=== PATIENT | male | born 1990 | race Caucasian/White ===

== ENCOUNTER → 2018-10-17 13:28 | Outpatient (POV) | payer BC, SELFPAY ==
[2018-10-17 13:53] VITALS: BP 152/88; PULSE 74; RESP 18; O2SAT 98; BMI 38.4
--- NOTE | 2018-10-17 14:22 | HMH.PAINSOAP ---
[facility] Pain Management SOAP Note Subjective:: Patient is a pleasant 26-year-old white male who presents today for complaints of bilateral lower extremity pain. The patient was seen here in 2017 for lower extremity pain and was started on gabapentin. The patient has since continued gabapentin as prescribed by Dr. Hayden. He does not feel like the gabapentin is working for him at this time. He is also tried Cymbalta in the past and this has not worked for him. Patient says that he has a history of lupus and antiphospholipid syndrome. As a result, he is on chronic anticoagulation therapy. Patient says that his pain is secondary to frequent blood clots in his lower extremities. Patient was ordered an MRI in the past by Dr. Hernandez, but he did not have the imaging study at that time. He does say that he has had imaging that was ordered from a another physician, for which that physician said it was directly related to his previous blood clots . Patient does rate his pain an 8 out of 10 today. Review of Systems General: No recent weight changes, no fever, no sleep disturbances Respiratory: No cough, no shortness of air, no recurring pulmonary infections Cardiovascular/peripheral vascular: No chest pain, no palpitations, no edema, no shortness of breath Gastrointestinal: No new onset incontinence, normal bowel movements reported Genitourinary: No new onset incontinence Musculoskeletal: Bilateral lower extremity pain Psychiatric: Normal mood/affect Neurological: [Denies weakness in extremities], [denies balance issues] Objective:: Physical exam General: Alert and oriented x3, no acute distress, pleasant and cooperative, [on room air] Lungs: Respirations even and unlabored, symmetrical chest expansion Eyes: PERRL Musculoskeletal: Range of motion to bilateral lower extremities somewhat guarded secondary to pain, deep tendon reflexes normal, strength in upper and lower extremities [5/5], [abnormal gait noted] Neurological: Speech clear, identification and records commander equal, no gross sensory deficit Assessment:: Bilateral lower extremity pain Plan:: Due to limited options secondary to anticoagulation therapy, we did have a thorough discussion on plan of care. The patient says that gabapentin is not working for him. We did discuss changing gabapentin to Lyrica, but it is cost prohibitive at this time. The patient would like to try naproxen for now and then follow-up with us in a month to discuss possibly changing his gabapentin. He has been instructed to call the office if he has any concerns prior to his next appointment. Dr. Hernandez has reviewed this note and agrees with this plan of care. This note was dictated using voice recognition software and make contain errors or omissions.
== END ==
PROVIDERS: PCP Family Medicine; Visit Provider Clinical Nurse Specialist Family Health
DX: M79.605 Pain in left leg (principal); M79.604 Pain in right leg
CPT/HCPCS: 99212

== ENCOUNTER → 2018-11-14 13:44 | Outpatient (POV) | payer BC, SELFPAY ==
[2018-11-14 14:03] VITALS: BP 127/89; PULSE 91; RESP 18; O2SAT 98; BMI 39.9
--- NOTE | 2018-11-14 16:01 | HMH.PAINSOAP ---
[facility] Pain Management SOAP Note Subjective:: Patient is a pleasant 28-year-old white male who presents today for complaints of bilateral lower extremity pain. 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 He is tried Cymbalta along with gabapentin and Lyrica with no success. He is currently on chronic anticoagulation therapy which he cannot stop. Patient rates his pain today 4 out of 10. We discussed options and we discussed potentially utilizing a compounding cream. He is interested in moving forward with this. [facility] #[id number] reviewed and appropriate. ROS General: no recent weight change, no fever, no sleep disturbances Respiratory: no cough, no shortness of air, no recurring pulmonary infections Cardiovascular/Peripheral Vascular: No chest pain, No palpitations, no edema, no shortness of breath. Gastrointestinal: no incontinence, normal bowel movements reported Genitourinary: no incontinence Musculoskeletal: Bilateral lower extremity pain Psychiatric: normal mood/ affect Neurological: [denies weakness in extremities], [denies balance issues] Objective:: Physical Exam General: Alert and oriented x3, no acute distress, pleasant and cooperative, [on room air] Lungs: Resps E/U, Symmetrical chest expansion, Eyes: PERRL Musculoskeletal: deep tendon reflexes normal, strength in upper and lower extremities [5/5], [abnormal gait noted] Neurological: speech clear, campaign manager equal, no gross sensory deficits Assessment:: CRPS type II, bilateral lower extremity pain Plan:: We will try compounding cream we will try this for 1 month we will reassess his symptoms and see if this is beneficial for him. He is been instructed to call the office if he has any issues prior to his next appointment. Dr. Hernandez has reviewed this note and agrees with this plan of care. This note was dictated using voice recognition software and may contain errors or omissions Pain Management Hx Components *Have you ever received a pneumonia vaccine?: No *Have you received a flu vaccine this season?: No - *Social History *Occupational Status:: other *Travel in the last 8 weeks: None
== END ==
PROVIDERS: PCP Family Medicine; Visit Provider Clinical Nurse Specialist Family Health
DX: G57.73 Causalgia of bilateral lower limbs (principal)
CPT/HCPCS: 99212

== ENCOUNTER → 2018-12-19 14:14 | Outpatient (POV) | payer BC, SELFPAY ==
[2018-12-19 14:44] VITALS: BP 139/75; PULSE 79; RESP 18; O2SAT 98; BMI 38.4
--- NOTE | 2018-12-20 10:23 | HMH.PAINSOAP ---
[facility] Pain Management SOAP Note Subjective:: Patient is a pleasant 28-year-old white male who presents today for follow-up. Patient has complaints of bilateral lower extremity pain. 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 He is tried Cymbalta, gabapentin and Lyrica with no success. He is currently on chronic anticoagulation therapy and he cannot stop this. Patient rates his pain today 5 out of 10. Patient recently tried a ketamine and gabapentin compounding cream he did not have any benefit from this. We discussed adding Elavil at nighttime we will move forward with this. ROS General: no recent weight change, no fever, no sleep disturbances Respiratory: no cough, no shortness of air, no recurring pulmonary infections Cardiovascular/Peripheral Vascular: No chest pain, No palpitations, no edema, no shortness of breath. Gastrointestinal: no incontinence, normal bowel movements reported Genitourinary: no incontinence Musculoskeletal: Bilateral leg pain Psychiatric: normal mood/ affect, Neurological: [denies weakness in extremities], [denies balance issues] Objective:: Physical Exam General: Alert and oriented x3, no acute distress, pleasant and cooperative, [on room air] Lungs: Resps E/U, Symmetrical chest expansion, Eyes: PERRL Musculoskeletal: deep tendon reflexes normal, strength in upper and lower extremities [5/5], [abnormal gait noted] Neurological: speech clear, fleecer equal, no gross sensory deficits Assessment:: CRPS type II bilateral lower extremities Plan:: We will start Elavil 25 mg at nighttime to see if this is beneficial for the patient. He is to continue his tramadol and gabapentin. Patient's been instructed to call our office if he has any issues we will see him back in 2 weeks reassess his symptoms at that time. Dr. Hernandez has reviewed this note and agrees with this plan of care. This note was dictated using voice recognition software and may contain errors or omissions [facility] History I have reviewed the patient's past medical history: Yes *Have you ever received a pneumonia vaccine?: Yes *Have you received a flu vaccine this season?: Yes - *Social History *Occupational Status:: other *Travel in the last 8 weeks: None Family Hx:: Non-contributory
--- NOTE | 2018-12-20 10:26 | P.CONS_ITS ---
[facility] Pain Management SOAP Note Subjective:: Patient is a pleasant 28-year-old white male who presents today for follow-up. Patient has complaints of bilateral lower extremity pain. 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 He is tried Cymbalta, gabapentin and Lyrica with no success. He is currently on chronic anticoagulation therapy and he cannot stop this. Patient rates his pain today 5 out of 10. Patient recently tried a ketamine and gabapentin compounding cream he did not have any benefit from this. We discussed adding Elavil at nighttime we will move forward with this. ROS General: no recent weight change, no fever, no sleep disturbances Respiratory: no cough, no shortness of air, no recurring pulmonary infections Cardiovascular/Peripheral Vascular: No chest pain, No palpitations, no edema, no shortness of breath. Gastrointestinal: no incontinence, normal bowel movements reported Genitourinary: no incontinence Musculoskeletal: Bilateral leg pain Psychiatric: normal mood/ affect, Neurological: [denies weakness in extremities], [denies balance issues] Objective:: Physical Exam General: Alert and oriented x3, no acute distress, pleasant and cooperative, [on room air] Lungs: Resps E/U, Symmetrical chest expansion, Eyes: PERRL Musculoskeletal: deep tendon reflexes normal, strength in upper and lower extremities [5/5], [abnormal gait noted] Neurological: speech clear, field cane scale clerk equal, no gross sensory deficits Assessment:: CRPS type II bilateral lower extremities Plan:: We will start Elavil 25 mg at nighttime to see if this is beneficial for the patient. He is to continue his tramadol and gabapentin. Patient's been instructed to call our office if he has any issues we will see him back in 2 weeks reassess his symptoms at that time. Dr. Hernandez has reviewed this note and agrees with this plan of care. This note was dictated using voice recognition software and may contain errors or omissions [facility] History I have reviewed the patient's past medical history: Yes *Have you ever received a pneumonia vaccine?: Yes *Have you received a flu vaccine this season?: Yes - *Social History *Occupational Status:: other *Travel in the last 8 weeks: None Family Hx:: Non-contributory
== END ==
PROVIDERS: PCP Family Medicine; Visit Provider Clinical Nurse Specialist Family Health
DX: G57.70 Causalgia of unspecified lower limb (principal)
CPT/HCPCS: 99212

== ENCOUNTER → 2019-01-09 14:43 | Outpatient (POV) | payer BC, SELFPAY ==
[2019-01-09 15:29] VITALS: BP 126/82; PULSE 84; RESP 18; O2SAT 99; BMI 38.4
--- NOTE | 2019-01-10 08:15 | HMH.PAINSOAP ---
[facility] Pain Management SOAP Note Subjective:: Is a very pleasant 28-year-old white male who presents today for follow-up. 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 He is tried Cymbalta/gabapentin/Lyrica with no success. At his last visit we put him on Elavil 25 mg nightly. Patient states he has not noticed a huge difference in his pain however he is sleeping better and he does not have any side effects we discussed increasing his Elavil at this time. He rates his pain today an 8 out of 10 he states he has had a hard day at work. Patient is also on tramadol and gabapentin [facility] #[id number] ROS General: no recent weight change, no fever, no sleep disturbances Respiratory: no cough, no shortness of air, no recurring pulmonary infections Cardiovascular/Peripheral Vascular: No chest pain, No palpitations, no edema, no shortness of breath. Gastrointestinal: no incontinence, normal bowel movements reported Genitourinary: no incontinence Musculoskeletal: Bilateral leg pain Psychiatric: normal mood/ affect, [denies depression], [denies anxiety] Neurological: [denies weakness in extremities], [denies balance issues] Objective:: Physical Exam General: Alert and oriented x3, no acute distress, pleasant and cooperative, [on room air] Lungs: Resps E/U, Symmetrical chest expansion, Eyes: PERRL Musculoskeletal: Range of motion bilateral legs somewhat guarded secondary to pain, deep tendon reflexes normal, strength in upper and lower extremities [5/5], [abnormal gait noted] Neurological: speech clear, fisher line equal, no gross sensory deficits Assessment:: CRPS type II bilateral lower extremities Plan:: We will increase his Elavil to 50 mg at nighttime to see if this is beneficial I will see him back in 2 weeks unless he is doing extremely well he can call and make an appointment for 1 month. She is been instructed to call the office if he has any issues prior to his next appointment. Patient is not an interventional candidate due to the fact that he is on anticoagulation therapy and cannot come off of it. Dr. Hernandez has reviewed this note and agrees with this plan of care. This note was dictated using voice recognition software and may contain errors or omissions [facility] History I have reviewed the patient's past medical history: Yes *Have you ever received a pneumonia vaccine?: No *Have you received a flu vaccine this season?: No - *Social History *Occupational Status:: other *Travel in the last 8 weeks: None Family Hx:: Non-contributory
--- NOTE | 2019-01-10 08:19 | P.CONS_ITS ---
[facility] Pain Management SOAP Note Subjective:: Is a very pleasant 28-year-old white male who presents today for follow-up. 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 He is tried Cymbalta/gabapentin/Lyrica with no success. At his last visit we put him on Elavil 25 mg nightly. Patient states he has not noticed a huge difference in his pain however he is sleeping better and he does not have any side effects we discussed increasing his Elavil at this time. He rates his pain today an 8 out of 10 he states he has had a hard day at work. Patient is also on tramadol and gabapentin [facility] #[id number] ROS General: no recent weight change, no fever, no sleep disturbances Respiratory: no cough, no shortness of air, no recurring pulmonary infections Cardiovascular/Peripheral Vascular: No chest pain, No palpitations, no edema, no shortness of breath. Gastrointestinal: no incontinence, normal bowel movements reported Genitourinary: no incontinence Musculoskeletal: Bilateral leg pain Psychiatric: normal mood/ affect, [denies depression], [denies anxiety] Neurological: [denies weakness in extremities], [denies balance issues] Objective:: Physical Exam General: Alert and oriented x3, no acute distress, pleasant and cooperative, [on room air] Lungs: Resps E/U, Symmetrical chest expansion, Eyes: PERRL Musculoskeletal: Range of motion bilateral legs somewhat guarded secondary to pain, deep tendon reflexes normal, strength in upper and lower extremities [5/5], [abnormal gait noted] Neurological: speech clear, nurse general duty equal, no gross sensory deficits Assessment:: CRPS type II bilateral lower extremities Plan:: We will increase his Elavil to 50 mg at nighttime to see if this is beneficial I will see him back in 2 weeks unless he is doing extremely well he can call and make an appointment for 1 month. She is been instructed to call the office if he has any issues prior to his next appointment. Patient is not an interventional candidate due to the fact that he is on anticoagulation therapy and cannot come off of it. Dr. Hernandez has reviewed this note and agrees with this plan of care. This note was dictated using voice recognition software and may contain errors or omissions [facility] History I have reviewed the patient's past medical history: Yes *Have you ever received a pneumonia vaccine?: No *Have you received a flu vaccine this season?: No - *Social History *Occupational Status:: other *Travel in the last 8 weeks: None Family Hx:: Non-contributory
== END ==
PROVIDERS: PCP Family Medicine; Visit Provider Clinical Nurse Specialist Family Health
DX: G57.70 Causalgia of unspecified lower limb (principal)
CPT/HCPCS: 99212

== ENCOUNTER → 2021-08-12 15:36 | Outpatient (CLI) | payer OTHER, SELFPAY | PROVIDERS: Visit Provider Podiatrist | DX: B35.3 Tinea pedis (principal); M25.571 Pain in right ankle and joints of right foot; M25.572 Pain in left ankle and joints of left foot; A04.8 Other specified bacterial intestinal infections | CPT/HCPCS: 87070; 87186; 87205 ==

== ENCOUNTER → 2021-08-19 13:12 | Outpatient (CLI) | payer OTHER, SELFPAY ==
--- NOTE | 2021-08-19 13:21 | XR_ITS ---
FINAL REPORT CLINICAL HISTORY: pain FINDINGS: RIGHT FOOT 3 weight-bearing views were obtained. There is no acute fracture or dislocation. The joint spaces are intact. There is no soft tissue abnormality. IMPRESSION: No acute bony abnormality. Reviewed, Interpreted and Dictated by Elidia Cool MD Transcribed by Kellie Miller Authenticated by Elidia Cool MD on 08/19/2021 02:53:31 PM [facility]
--- NOTE | 2021-08-19 13:21 | XR_ITS ---
FINAL REPORT CLINICAL HISTORY: pain FINDINGS: LEFT FOOT 3 weight-bearing views were obtained. There is no acute fracture or dislocation. The joint spaces are intact. There is no soft tissue abnormality. IMPRESSION: No acute bony abnormality. Reviewed, Interpreted and Dictated by Elidia Cool MD Transcribed by Kellie Miller Authenticated by Elidia Cool MD on 08/19/2021 02:51:48 PM [facility]
--- NOTE | 2021-08-19 13:21 | XR_ITS ---
FINAL REPORT CLINICAL HISTORY: ankle pain FINDINGS: Weight-bearing AP, oblique, and lateral views of the right ankle were obtained. There is no prior exam for comparison. There is no fracture or dislocation. The ankle mortise is intact. Soft tissues are normal. IMPRESSION: No acute osseous abnormality of the right ankle. Reviewed, Interpreted and Dictated by Elidia Cool MD Transcribed by Kellie Miller Authenticated by Elidia Cool MD on 08/19/2021 02:52:[address] [facility]
--- NOTE | 2021-08-19 13:21 | XR_ITS ---
FINAL REPORT CLINICAL HISTORY: ankle pain FINDINGS: Weight-bearing AP, oblique, and lateral views of the left ankle were obtained. There is no prior exam for comparison. There is no fracture or dislocation. The ankle mortise is intact. Soft tissues are normal. IMPRESSION: No acute osseous abnormality of the left ankle. Reviewed, Interpreted and Dictated by Elidia Cool MD Transcribed by Kellie Miller Authenticated by Elidia Cool MD on 08/19/2021 02:51:[address] [facility]
== END ==
PROVIDERS: PCP Nurse Practitioner Family; Visit Provider Podiatrist
DX: M25.571 Pain in right ankle and joints of right foot (principal); M25.572 Pain in left ankle and joints of left foot; B35.3 Tinea pedis
CPT/HCPCS: 73610; 73630

== ENCOUNTER → 2021-09-03 08:48 | Outpatient (CLI) | payer OTHER, SELFPAY ==
[2021-09-03 10:23] LABS: INR 4.66 (0.9-1.1)
== END ==
PROVIDERS: PCP Nurse Practitioner Family; Visit Provider Nurse Practitioner Family
DX: R79.1 Abnormal coagulation profile (principal)
CPT/HCPCS: 36415; 85610

== ENCOUNTER → 2021-09-18 12:52 | Outpatient (CLI) | payer OTHER, SELFPAY ==
[2021-09-18 13:43] LABS: Basophils % 0.5 % (0.1-2.0); Eosinophils % 0.3 % (0.1-12.0); Hematocrit 45.7 % (42.0-52.0); Hemoglobin 16.2 g/dL (14.1-18.0); Lymphocytes # 1.4 K/mm3 (0.7-4.5); Lymphocytes % 16.4 % (10-50); Mean Corpuscular HGB Conc 35.4 g/dL (31.8-35.4); Mean Corpuscular Hemoglobin 30.8 pg (27.0-31.2); Mean Platelet Volume 7.7 fl (7.4-10.4); Monocytes # 0.6 K/mm3 (0.1-1.0); Monocytes % 7.1 % (1.7-9.3); Neutrophils # 6.3 K/mm3 (1.8-7.8); Neutrophils % 75.7 % (37.0-80.0); Platelet Count 177 K/mm3 (142-424); Red Blood Count 5.25 M/mm3 (4.60-6.20); White Blood Count 8.3 K/mm3 (4.8-10.8)
[2021-09-18 14:29] LABS: INR 5.67 (0.9-1.1)
[2021-09-18 14:30] LABS: Prothrombin Time 56.3 seconds (10.1-12.5)
[2021-09-18 14:53] LABS: Ferritin 107 ng/ml (17.9-464)
[2021-09-18 15:24] LABS: Vitamin B12 449 pg/mL (239-931)
[2021-09-18 20:51] LABS: Iron 107 ug/dL (49-181)
[2021-09-18 21:01] LABS: Total Iron Binding Capacity 327 ug/dL (261-462)
== END ==
PROVIDERS: PCP Nurse Practitioner Family; Visit Provider Nurse Practitioner Family
DX: D64.9 Anemia, unspecified (principal); R31.9 Hematuria, unspecified; Z51.81 Encounter for therapeutic drug level monitoring; Z79.01 Long term (current) use of anticoagulants
CPT/HCPCS: 36415; 82607; 82728; 82746; 83540; 83550; 85025; 85610

== ENCOUNTER → 2021-09-24 13:46 | Outpatient (CLI) | payer OTHER, SELFPAY ==
[2021-09-24 14:33] LABS: INR 2.05 (0.9-1.1)
== END ==
PROVIDERS: PCP Nurse Practitioner Family; Visit Provider Nurse Practitioner Family
DX: D68.62 Lupus anticoagulant syndrome (principal); Z51.81 Encounter for therapeutic drug level monitoring; Z79.01 Long term (current) use of anticoagulants
CPT/HCPCS: 36415; 85610

== ENCOUNTER → 2021-09-26 11:40 | Outpatient (CLI) | payer OTHER, SELFPAY ==
[2021-09-26 13:09] LABS: INR 2.42 (0.9-1.1); Prothrombin Time 25.6 seconds (10.1-12.5)
== END ==
PROVIDERS: PCP Nurse Practitioner Family; Visit Provider Nurse Practitioner Family
DX: D68.62 Lupus anticoagulant syndrome (principal); Z51.81 Encounter for therapeutic drug level monitoring; Z79.01 Long term (current) use of anticoagulants
CPT/HCPCS: 36415; 85610

== ENCOUNTER → 2021-09-30 14:52 | Outpatient (CLI) | payer OTHER, SELFPAY ==
[2021-09-30 16:36] LABS: INR 2.71 (0.9-1.1); Prothrombin Time 28.4 seconds (10.1-12.5)
== END ==
PROVIDERS: PCP Nurse Practitioner Family; Visit Provider Nurse Practitioner Family
DX: D68.62 Lupus anticoagulant syndrome (principal); Z51.81 Encounter for therapeutic drug level monitoring; Z79.01 Long term (current) use of anticoagulants
CPT/HCPCS: 36415; 85610

== ENCOUNTER → 2021-10-27 10:42 | Outpatient (CLI) | payer OTHER, SELFPAY ==
[2021-10-27 11:41] LABS: INR 1.82 (0.9-1.1); Prothrombin Time 19.7 seconds (10.1-12.5)
== END ==
PROVIDERS: PCP Nurse Practitioner Family; Visit Provider Nurse Practitioner Family
DX: D68.62 Lupus anticoagulant syndrome (principal); Z51.81 Encounter for therapeutic drug level monitoring; Z79.01 Long term (current) use of anticoagulants
CPT/HCPCS: 36415; 85610

== ENCOUNTER → 2021-12-11 12:21 | Outpatient (CLI) | payer OTHER, SELFPAY ==
[2021-12-11 12:55] LABS: INR 4.37 (0.9-1.1); Prothrombin Time 43.4 seconds (10.1-12.5)
== END ==
PROVIDERS: PCP Nurse Practitioner Family; Visit Provider Nurse Practitioner Family
DX: D68.62 Lupus anticoagulant syndrome (principal); Z79.01 Long term (current) use of anticoagulants
CPT/HCPCS: 36415; 85610

== ENCOUNTER 2021-12-31 18:54 | Emergency (ER) | payer OTHER, SELFPAY ==
--- NOTE | 2021-12-31 19:22 | XR_ITS ---
PROCEDURE INFORMATION: Exam: XR Right Foot Exam date and time: 12/31/2021 7:20 PM Age: 31 years old Clinical indication: Injury or trauma; Work related; Foot; Right; Foreign body involvement not specified; Patient HX: Patient stepped on a nail embedded in a board. Ink pen used on lateral view to adin puncture site. ; Additional info: Stepped on nail TECHNIQUE: Imaging protocol: Radiologic exam of the Right foot. Views: 3 or more views. COMPARISON: CR XR FOOT WT BEARING RT 3V 08/19/2021 1:38 PM FINDINGS: Bones/joints: No fractures. Normal alignment is maintained in the midfoot, hindfoot, and forefoot. Joint spaces are well-maintained. No blastic or lytic lesions. No gross ankle joint effusion. No hindfoot coalition. Soft tissues: No periostitis or osteolysis. No gross soft tissue abnormalities. No radiopaque foreign bodies. Other findings: Normal mineralization. IMPRESSION: 1. No acute findings. 2. No fracture or foreign body.
[2021-12-31 19:26] VITALS: BP 131/86; PULSE 81; RESP 18; TEMP 36.8; O2SAT 98; BMI 36.4
--- NOTE | 2021-12-31 20:07 | EXP.UTC ---
Discharge Plan Disposition Patient Disposition: Home, Self-Care Condition: Good Prescriptions Prescriptions: New amoxicillin-pot clavulanate 875-125 mg Tablet 1 tab PO Q12H 7 Days Qty: 10 0RF No Action leflunomide 10 mg tablet 10 mg PO DAILY hydrocodone-acetaminophen 10-325 mg tablet 1 tab PO NEEDED PRN (Reason: Pain) Label Comments: TAKE ONE TABLET BY MOUTH TWICE DAILY NEEDED FOR PAIN MAY CAUSE DROWSINESS ergocalciferol (vitamin D2) 1,250 mcg (50,000 unit) capsule 1,250 mcg PO DAILY gabapentin 300 mg capsule 300 mg PO NEEDED PRN (Reason: Pain) methocarbamol 750 mg tablet 750 mg PO DAILY Label Comments: TAKE ONE TABLET BY MOUTH EVERY DAY MAY CAUSE DROWSINESS warfarin 5 MG tablet 5 mg PO DAILY Label Comments: TAKE 3 TABLETS BY MOUTH EVERY DAY DIRECTED hydroxychloroquine 200 MG tablet 200 mg PO DAILY leflunomide 10 mg tablet 10 mg PO DAILY Label Comments: TAKE ONE TABLET BY MOUTH EVERY DAY DIRECTED hydrocodone-acetaminophen 10-325 mg tablet 1 tab PO NEEDED PRN (Reason: Pain) Label Comments: TAKE ONE TABLET BY MOUTH TWICE DAILY NEEDED FOR PAIN MAY CAUSE DROWSINESS gabapentin 300 mg capsule 300 mg PO TID Label Comments: TAKE ONE CAPSULE BY MOUTH THREE TIMES DAILY MAY CAUSE DROWSINESS ergocalciferol (vitamin D2) 1,250 mcg (50,000 unit) capsule 50,000 unit PO WEEKLY Label Comments: TAKE ONE CAPSULE BY MOUTH EVERY WEEK hydroxychloroquine 200 mg tablet 200 mg PO DAILY Label Comments: TAKE TWO TABLETS BY MOUTH EVERY DAY guaifenesin [Mucus Relief ER] 600 mg tablet extended release 12hr 600 mg PO NEEDED PRN (Reason: Allergy Symptoms) Label Comments: TAKE ONE TABLET BY MOUTH EVERY TWELVE HOURS NEEDED Referrals Follow up/Referrals: Amrit Cordon APRN [Primary Care Provider] - See instructions Activity Restrictions/Add. Instructions Additional Instructions/Restrictions: Monitor PT/INR closely as antibiotics can enhance the anticoagulation effects of Warfarin and needs to be monitored closely while on antibiotics Return if needed Follow up with your Family Doctor if no improvement or any worsen of symptoms Straight to ER if any life threatening sympotms Make sure to keep wound clean and dry Clinical Impressions Clinical Impression: Puncture wound Instructions Patient Instructions: DI for Puncture Wound, Amoxicillin and Clavulanic Acid Discharge ED Provider: Katheryn Santacruz [facility] H[place] General Stated complaint: AO 12/31 @1400@HOME STEPPED ON NAIL Mode of Arrival: Ambulatory Source of Information: Patient and Spouse Limitations: No Limitations Time Seen by Provider: 12/31/21 20:08 Description of Symptoms (Recalled from Triage Doc. by RN): pt comes in for stepping on a nail this evening. pt is on blood thinners and would like xray to check punture wound HEENT Symptoms (Recalled from RN notes): No Resp Symptoms (Recalled from RN notes): No Skin Symptoms (Recalled from RN notes): Yes MS Symptoms (Recalled from RN notes): No Functional Status (Recalled from RN notes): n/a History of Present Illness Provider Complaint: Patient states that he was walking and stepped on nail that was in a board States the nail went through his shoe and into the bottom of his right foot States that he was worried that something may be inside his foot and he is on blood thinners so they wanted to get it checked Related Data Home Medications Medication Instructions Recorded Confirmed hydroxychloroquine 200 mg tablet 200 mg PO DAILY Supplement 10/17/18 12/31/21 warfarin 5 mg tablet 5 mg PO DAILY Blood thinner 10/17/18 12/31/21 ergocalciferol (vitamin D2) 1,250 1,250 mcg PO DAILY Supplement 03/10/21 12/31/21 mcg (50,000 unit) capsule gabapentin 300 mg capsule 300 mg PO NEEDED PRN Pain 03/10/21 12/31/21 hydrocodone 10 mg-acetaminophen 1 tab PO NEEDED PRN Pain
[2021-12-31 20:10] VITALS: BP 131/86; PULSE 81; RESP 18; TEMP 36.8
== END 2021-12-31 20:22 | disposition home or self-care (01) ==
PROVIDERS: Emergency Provider Nurse Practitioner; PCP Nurse Practitioner Family
DX: S91.331A Puncture wound without foreign body, right foot, initial encounter (principal); W45.0XXA Nail entering through skin, initial encounter; Y93.01 Activity, walking, marching and hiking; Z79.01 Long term (current) use of anticoagulants; Z79.899 Other long term (current) drug therapy
CPT/HCPCS: 73630; 90471; 90714; 99213; G0463

== ENCOUNTER → 2022-01-02 12:02 | Outpatient (CLI) | payer OTHER, SELFPAY ==
[2022-01-02 12:40] LABS: Basophils # 0.1 K/mm3 (0-0.2); Basophils % 0.7 % (0.1-2.0); Eosinophils # 0.1 K/mm3 (0.0-0.4); Eosinophils % 1.4 % (0.1-12.0); Hemoglobin 15.7 g/dL (14.1-18.0); Lymphocytes # 1.2 K/mm3 (0.7-4.5); Lymphocytes % 17.2 % (10-50); Mean Corpuscular Hemoglobin 29.8 pg (27.0-31.2); Mean Corpuscular Volume 93.1 fl (80-94); Mean Platelet Volume 7.3 fl (7.4-10.4); Monocytes # 0.5 K/mm3 (0.1-1.0); Monocytes % 7.7 % (1.7-9.3); Neutrophils # 5.1 K/mm3 (1.8-7.8); Neutrophils % 72.9 % (37.0-80.0); Platelet Count 227 K/mm3 (142-424); Red Blood Count 5.26 M/mm3 (4.60-6.20); Red Cell Distribution Width 13.5 % (11.5-17.5)
[2022-01-02 12:48] LABS: INR 1.91 (0.9-1.1); Prothrombin Time 19.9 seconds (10.1-12.5)
[2022-01-02 12:54] LABS: Chloride 104 mmol/L (98-107); Potassium 4.1 mmoL/L (3.5-5.1); Sodium 140 mmol/L (136-145)
[2022-01-02 12:57] LABS: Alanine Aminotransferase 34 U/L (12-78); Albumin Level 4.4 g/dl (3.5-5.0); Albumin/Globulin Ratio 1.7 (1.1-1.8); Alkaline Phosphatase 73 U/L (38-126); Anion Gap 14.1 mEq/L (5-15); Aspartate Amino Transferase 34 U/L (17-59); Bilirubin,Total 0.8 mg/dl (0.2-1.3); Blood Urea Nitrogen 10 mg/dl (9-20); Calcium 8.9 mg/dl (8.4-10.2); Carbon Dioxide 26 mmol/L (22.0-30.0); Estimated Glomerular Filt Rate 113 ml/min (>60); GFR (African American) 136 ML/MIN (>60); Globulin 2.6 g/dL (1.3-3.2); Glucose 91 mg/dl (74-100)
[2022-01-02 13:03] LABS: C-Reactive Protein 4.2 mg/L (0-4)
[2022-01-02 14:55] LABS: Erythrocyte Sedimentation Rate 26 mm/hr (0-15)
== END ==
PROVIDERS: PCP Nurse Practitioner Family; Visit Provider Podiatrist
DX: S91.331A Puncture wound without foreign body, right foot, initial encounter (principal); M79.671 Pain in right foot; L03.115 Cellulitis of right lower limb; T14.8XXA Other injury of unspecified body region, initial encounter
CPT/HCPCS: 36415; 80053; 85025; 85610; 85651; 86140

== ENCOUNTER → 2022-01-28 12:18 | Outpatient (CLI) | payer OTHER, SELFPAY ==
[2022-01-28 13:32] LABS: INR 3.39 (0.9-1.1); Prothrombin Time 34.2 seconds (10.1-12.5)
== END ==
PROVIDERS: PCP Nurse Practitioner Family; Visit Provider Nurse Practitioner Family
DX: D68.62 Lupus anticoagulant syndrome (principal); Z51.81 Encounter for therapeutic drug level monitoring; Z79.01 Long term (current) use of anticoagulants
CPT/HCPCS: 36415; 85610

== ENCOUNTER → 2022-02-02 11:48 | Outpatient (CLI) | payer OTHER, SELFPAY ==
[2022-02-02 12:31] LABS: INR 2.25 (0.9-1.1); Prothrombin Time 23.2 seconds (10.1-12.5)
== END ==
PROVIDERS: PCP Nurse Practitioner Family; Visit Provider Nurse Practitioner Family
DX: D68.62 Lupus anticoagulant syndrome (principal); Z51.81 Encounter for therapeutic drug level monitoring; Z79.01 Long term (current) use of anticoagulants
CPT/HCPCS: 36415; 85610

== ENCOUNTER → 2022-08-10 12:18 | Outpatient (CLI) | payer OTHER, SELFPAY ==
[2022-08-10 13:52] LABS: INR 4.81 (0.9-1.1)
[2022-08-10 14:09] LABS: Prothrombin Time 47.5 seconds (10.1-12.5)
== END ==
PROVIDERS: PCP Nurse Practitioner Family; Visit Provider Nurse Practitioner Family
DX: Z51.81 Encounter for therapeutic drug level monitoring (principal); Z79.01 Long term (current) use of anticoagulants; D68.62 Lupus anticoagulant syndrome
CPT/HCPCS: 36415; 85610

== ENCOUNTER → 2022-09-10 12:15 | Outpatient (CLI) | payer OTHER, SELFPAY ==
[2022-09-10 12:33] LABS: Basophils % 0.8 % (0.1-2.0); Eosinophils # 0.1 K/mm3 (0.0-0.4); Eosinophils % 2.4 % (0.1-12.0); Hematocrit 46.9 % (42.0-52.0); Hemoglobin 15.5 g/dL (14.1-18.0); Lymphocytes # 1.3 K/mm3 (0.7-4.5); Lymphocytes % 27.8 % (10-50); Mean Corpuscular Hemoglobin 29.8 pg (27.0-31.2); Mean Corpuscular Volume 90.2 fl (80-94); Mean Platelet Volume 8.3 fl (7.4-10.4); Monocytes # 0.4 K/mm3 (0.1-1.0); Monocytes % 8.1 % (1.7-9.3); Neutrophils # 2.8 K/mm3 (1.8-7.8); Neutrophils % 60.9 % (37.0-80.0); Platelet Count 187 K/mm3 (142-424); Red Cell Distribution Width 14.3 % (11.5-17.5); White Blood Count 4.5 K/mm3 (4.8-10.8)
[2022-09-10 13:02] LABS: INR 4.82 (0.9-1.1)
[2022-09-10 13:46] LABS: Prothrombin Time 47.6 seconds (10.1-12.5)
[2022-09-10 14:55] LABS: Alanine Aminotransferase 97 U/L (12-78); Albumin Level 4.2 g/dl (3.5-5.0); Albumin/Globulin Ratio 1.6 (1.1-1.8); Alkaline Phosphatase 50 U/L (38-126); Anion Gap 13.7 mEq/L (5-15); Aspartate Amino Transferase 73 U/L (17-59); Bilirubin,Total 0.7 mg/dl (0.2-1.3); Blood Urea Nitrogen 7 mg/dl (9-20); Calcium 8.9 mg/dl (8.4-10.2); Carbon Dioxide 26 mmol/L (22.0-30.0); Chloride 104 mmol/L (98-107); Creatine Kinase 152 U/L (55-170); Estimated Glomerular Filt Rate 113 ml/min (>60); GFR (African American) 136 ML/MIN (>60); Globulin 2.6 g/dL (1.3-3.2); Glucose 94 mg/dl (74-100); Potassium 3.7 mmoL/L (3.5-5.1); Sodium 140 mmol/L (136-145); Total Protein,Serum 6.8 g/dl (6.3-8.2)
[2022-09-10 15:26] LABS: Thyroid Stimulating Hormone 1.21 uIU/mL (0.465-4.68)
[2022-09-10 15:38] LABS: Ferritin 113 ng/ml (17.9-464)
[2022-09-10 16:01] LABS: Vitamin B12 503 pg/mL (239-931)
[2022-09-10 16:03] LABS: Folate 6.95 ng/mL
== END ==
PROVIDERS: PCP Nurse Practitioner Family; Visit Provider Nurse Practitioner Family
DX: D68.61 Antiphospholipid syndrome (principal); G25.81 Restless legs syndrome; G62.9 Polyneuropathy, unspecified; I73.9 Peripheral vascular disease, unspecified; M32.9 Systemic lupus erythematosus, unspecified; M34.9 Systemic sclerosis, unspecified; M79.604 Pain in right leg; M79.605 Pain in left leg; M79.671 Pain in right foot; M79.672 Pain in left foot; R41.3 Other amnesia; E66.01 Morbid (severe) obesity due to excess calories; Z68.41 Body mass index [BMI] 40.0-44.9, adult
CPT/HCPCS: 36415; 80053; 82550; 82607; 82728; 82746; 84443; 85025; 85610

== ENCOUNTER → 2022-09-17 11:16 | Outpatient (CLI) | payer OTHER, SELFPAY ==
--- NOTE | 2022-09-17 11:32 | XR_ITS ---
FINAL REPORT CLINICAL HISTORY: chronic ankle pain, swelling/bruising FINDINGS: RIGHT ANKLE 3 views of the right ankle were obtained. There is no acute fracture or dislocation. The mortise is intact. Visualized joint spaces are normally aligned. There is mild soft tissue swelling surrounding the ankle. There is an unusual appearance of the distal and lateral aspect of the tibia, with an indentation in the lateral distal tibial metadiaphyseal region. This may represent an unusual thickening of the medial cortex of the right tibia, although a slow growing soft tissue mass can not be excluded. IMPRESSION: No acute bony abnormality. Unusual appearance of the lateral aspect of the distal tibia, with a smooth indentation. An underlying soft tissue mass could be present, and if clinically indicated an MRI of the right ankle might be helpful for further evaluation. Reviewed, Interpreted and Dictated by Handy Yanes MD Transcribed by Sarika Joshua Authenticated and [facility]
[2022-09-17 11:56] LABS: INR 2.55 (0.9-1.1); Prothrombin Time 26.1 seconds (10.1-12.5)
== END ==
PROVIDERS: PCP Nurse Practitioner Family; Visit Provider Podiatrist
DX: M25.571 Pain in right ankle and joints of right foot (principal); D68.62 Lupus anticoagulant syndrome; Z51.81 Encounter for therapeutic drug level monitoring; Z79.01 Long term (current) use of anticoagulants
CPT/HCPCS: 36415; 73610; 85610

== ENCOUNTER → 2022-09-30 09:22 | Outpatient (CLI) | payer OTHER, SELFPAY ==
--- NOTE | 2022-09-30 09:22 | MR_ITS ---
FINAL REPORT CLINICAL HISTORY: right ankle injury PT IS FLAT FOOTED PAIN IN HEEL AND WRAPS AROUND BOTH SIDES X 2 WEEKS FINDINGS: Multiplanar MR imaging of the right ankle was performed without contrast. The bony structures are intact without evidence of fracture, bone bruise or marrow edema. No osteochondral lesion is identified. There are partial tears of the anterior talofibular and calcaneofibular ligaments. There is mild posterior tibial, peroneus longus and brevis tenosynovitis. The posterior plantar aponeurosis is intact. No significant joint effusion is seen. The musculature is intact. There is a small ganglion posterior to the tibiotalar joint. IMPRESSION: Partial tears of the anterior talofibular and calcaneofibular ligaments. Tenosynovitis as above. Reviewed, Interpreted and Dictated by Cresencio Esquivel III, MD Transcribed by Litzy Summers Authenticated and [facility]
--- NOTE | 2022-09-30 10:31 | MR_ITS ---
FINAL REPORT CLINICAL HISTORY: eval for vasculitis, atrphy, ischemia COMPARISON: None FINDINGS: Multiple projection images of the brain arterial vasculature were obtained without contrast. The raw data images were also reviewed. The distal internal carotid, distal vertebral and basilar arteries have an unremarkable appearance without evidence of significant stenosis or occlusion. The proximal anterior, middle and posterior cerebral arteries have an unremarkable appearance. There is no evidence of significant stenosis or major branch occlusion. No aneurysm or vascular malformation is identified. IMPRESSION: Unremarkable MR angiogram of the head. Reviewed, Interpreted and Dictated by Cresencio Esquivel III, MD Transcribed by Sarika Joshua Authenticated and [facility]
--- NOTE | 2022-09-30 10:31 | MR_ITS ---
FINAL REPORT CLINICAL HISTORY: eval for vasculitis, atrphy, ischemia [employer]ORY [employer] AND [employer] PROBLEMS STARTED IN 2012 BLURRY VISION 25 ML PROHANCE GIVEN LOT:[id number] EXP: COMPARISON: None FINDINGS: Multiplanar MR imaging of the brain was performed without and with contrast. There is no evidence of intracranial hemorrhage or mass. No abnormal extra-axial fluid collection is seen. The ventricular size is within normal limits. There is no evidence of shift of the midline structures. The posterior fossa and brainstem have an unremarkable appearance. No area of abnormal restricted diffusion is identified. No abnormal contrast enhancement is seen. Normal major vessel vascular flow voids are noted. IMPRESSION: No acute intracranial abnormality identified. Reviewed, Interpreted and Dictated by Cresencio Esquivel III, MD Transcribed by Sarika Joshua Authenticated and . [facility]
== END ==
PROVIDERS: PCP Nurse Practitioner Family; Visit Provider Podiatrist
DX: S86.311A Strain of muscle(s) and tendon(s) of peroneal muscle group at lower leg level, right leg, initial encounter (principal); S93.491A Sprain of other ligament of right ankle, initial encounter; D68.61 Antiphospholipid syndrome; G93.40 Encephalopathy, unspecified; M32.9 Systemic lupus erythematosus, unspecified
CPT/HCPCS: 70544; 70553; 73721; A9576

== ENCOUNTER 2023-06-11 10:29 | Outpatient (CLI) | payer OTHER, SELFPAY ==
[2023-06-11 11:33] LABS: INR 2.52 (0.9-1.1); Prothrombin Time 25.6 seconds (10.1-12.5)
== END 2023-06-11 23:59 ==
LOC: ACC 10:30 → LAB 10:32
PROVIDERS: PCP Nurse Practitioner Family; Visit Provider Nurse Practitioner Family
DX: Z79.01 Long term (current) use of anticoagulants (principal)
CPT/HCPCS: 36415; 85610

== ENCOUNTER 2023-07-19 15:00 | Outpatient (CLI) | payer OTHER, SELFPAY ==
[2023-07-19 15:25] LABS: INR 1.92 (0.9-1.1); Prothrombin Time 19.9 seconds (10.1-12.5)
== END 2023-07-19 23:59 | disposition home or self-care (01) ==
LOC: LAB 15:01
PROVIDERS: PCP Nurse Practitioner Family; Visit Provider Nurse Practitioner Family
DX: D68.62 Lupus anticoagulant syndrome (principal); Z79.01 Long term (current) use of anticoagulants
CPT/HCPCS: 36415; 85610

== ENCOUNTER 2023-09-28 10:15 | Outpatient (POV) | payer OTHER, SELFPAY | END 2023-09-28 23:59 | disposition home or self-care (01) | LOC: SC 10:15 | PROVIDERS: PCP Nurse Practitioner Family; Visit Provider Dermatology | DX: Z00.00 Encounter for general adult medical examination without abnormal findings (principal) ==

== ENCOUNTER 2023-10-28 12:10 | Outpatient (CLI) | payer OTHER, SELFPAY ==
[2023-10-28 12:30] LABS: Basophils # 0.1 K/mm3 (0-0.2); Basophils % 0.9 % (0.1-2.0); Eosinophils # 0.1 K/mm3 (0.0-0.4); Hematocrit 44.5 % (42.0-52.0); Hemoglobin 14.9 g/dL (14.1-18.0); Lymphocytes % 18.7 % (10-50); Mean Corpuscular HGB Conc 33.4 g/dL (31.8-35.4); Mean Corpuscular Hemoglobin 31.2 pg (27.0-31.2); Mean Corpuscular Volume 93.3 fl (80-94); Mean Platelet Volume 7.8 fl (7.4-10.4); Monocytes # 0.4 K/mm3 (0.1-1.0); Monocytes % 7.3 % (1.7-9.3); Neutrophils % 71.2 % (37.0-80.0); Platelet Count 241 K/mm3 (142-424); Red Blood Count 4.76 M/mm3 (4.60-6.20); Red Cell Distribution Width 14.4 % (11.5-17.5); White Blood Count 5.6 K/mm3 (4.8-10.8)
[2023-10-28 12:55] LABS: Erythrocyte Sedimentation Rate 16 mm/hr (0-15)
[2023-10-28 13:01] LABS: Alanine Aminotransferase 40 U/L (12-78); Albumin Level 3.9 g/dl (3.5-5.0); Albumin/Globulin Ratio 1.5 (1.1-1.8); Alkaline Phosphatase 53 U/L (38-126); Anion Gap 10.6 mEq/L (5-15); Aspartate Amino Transferase 32 U/L (17-59); Bilirubin,Total 0.8 mg/dl (0.2-1.3); Blood Urea Nitrogen 12 mg/dl (9-20); Calcium 9.4 mg/dl (8.4-10.2); Carbon Dioxide 26 mmol/L (22.0-30.0); Chloride 105 mmol/L (98-107); Estimated Glomerular Filt Rate 130 ml/min (>60); GFR (African American) 157 ML/MIN (>60); Globulin 2.6 g/dL (1.3-3.2); Glucose 79 mg/dl (74-100); Potassium 3.6 mmoL/L (3.5-5.1); Sodium 138 mmol/L (136-145); Total Protein,Serum 6.5 g/dl (6.3-8.2)
[2023-10-28 13:06] LABS: C-Reactive Protein 1.4 mg/L (0-4)
[2023-10-28 13:19] LABS: 25-OH Vitamin D, Total 42.6 ng/mL (30-100)
[2023-10-29 08:30] LABS: Complement C3 150 mg/dL (82-167)
[2023-10-29 18:10] LABS: Centromere Pattern >1:1280 (.)
[2023-11-01 10:09] LABS: dsDNA AB Crithidia Negative (Negative)
[2023-11-17 14:52] LABS: Antinuclear Antibodies, IFA POSITIVE
== END 2023-10-28 23:59 | disposition home or self-care (01) ==
LOC: LAB 12:12
PROVIDERS: PCP Nurse Practitioner Family; Visit Provider Physician Assistant Medical
DX: M32.9 Systemic lupus erythematosus, unspecified (principal); E55.9 Vitamin D deficiency, unspecified
CPT/HCPCS: 36415; 80053; 82306; 85025; 85651; 86038; 86140; 86161; 86225

== ENCOUNTER 2024-05-25 10:55 | Outpatient (CLI) | payer OTHER, SELFPAY ==
[2024-05-25 11:44] LABS: Basophils % 0.9 % (0.1-2.0); Eosinophils # 0.1 K/mm3 (0.0-0.4); Eosinophils % 1.7 % (0.1-12.0); Hemoglobin 15.2 g/dL (14.1-18.0); Lymphocytes % 22.3 % (10-50); Mean Corpuscular HGB Conc 33.8 g/dL (31.8-35.4); Mean Corpuscular Hemoglobin 30.2 pg (27.0-31.2); Mean Corpuscular Volume 89.3 fl (80-94); Mean Platelet Volume 10.3 fl (7.4-10.4); Monocytes # 0.5 K/mm3 (0.1-1.0); Monocytes % 11.1 % (1.7-9.3); Neutrophils % 63.4 % (37.0-80.0); Platelet Count 198 K/mm3 (142-424); Red Blood Count 5.04 M/mm3 (4.60-6.20); White Blood Count 4.7 K/mm3 (4.8-10.8)
[2024-05-25 13:07] LABS: Erythrocyte Sedimentation Rate 9 mm/hr (0-15)
[2024-05-25 13:30] LABS: Alanine Aminotransferase 32 U/L (12-78); Albumin Level 4.1 g/dl (3.5-5.0); Alkaline Phosphatase 49 U/L (38-126); Anion Gap 7.8 mEq/L (5-15); Aspartate Amino Transferase 29 U/L (17-59); Bilirubin,Total 0.7 mg/dl (0.2-1.3); Blood Urea Nitrogen 11 mg/dl (9-20); Carbon Dioxide 31 mmol/L (22.0-30.0); Chloride 104 mmol/L (98-107); Estimated Glomerular Filt Rate 97 ml/min (>60); GFR (African American) 118 ML/MIN (>60); Globulin 2.1 g/dL (1.3-3.2); Glucose 68 mg/dl (74-100); Potassium 3.8 mmoL/L (3.5-5.1); Sodium 139 mmol/L (136-145); Total Protein,Serum 6.2 g/dl (6.3-8.2)
== END 2024-05-25 23:59 | disposition home or self-care (01) ==
LOC: LAB 10:57
PROVIDERS: PCP Nurse Practitioner Family; Visit Provider Internal Medicine Rheumatology
DX: D68.62 Lupus anticoagulant syndrome (principal); Z79.01 Long term (current) use of anticoagulants
CPT/HCPCS: 36415; 80053; 85025; 85651; 86140

== ENCOUNTER 2024-06-14 13:34 | Emergency (ER) | payer OTHER, SELFPAY ==
[2024-06-14 13:36] VITALS: BP 137/94; PULSE 86; RESP 18; TEMP 36.9; O2SAT 100; BMI 37.6
--- NOTE | 2024-06-14 13:52 | XR_ITS ---
FINAL REPORT CLINICAL HISTORY: fall, left ankle pain COMPARISON: 08/19/2021 FINDINGS: Three views of the left ankle show no evidence of acute displaced fracture or dislocation of the visualized bony architecture. The joint spaces appear normal. IMPRESSION: Unremarkable exam. Reviewed, Interpreted and Dictated by Ramin Kuhn MD Transcribed by Love Henriquez Authenticated and [facility]
--- NOTE | 2024-06-14 13:54 | ED_ITS ---
Discharge Plan Disposition Patient Disposition: Home, Self-Care Condition: Good Prescriptions Prescriptions: No Action warfarin 3 mg tablet 3 mg PO DAILY hydrocodone-acetaminophen 10-325 mg tablet 1 tab PO BID Patient Comments: TAKE ONE TABLET BY MOUTH TWICE DAILY NEEDED FOR PAIN MAY CAUSE DROWSINESS methocarbamol 750 mg tablet 750 mg PO DAILY PRN (Reason: Pain) Patient Comments: TAKE ONE TABLET BY MOUTH EVERY DAY MAY CAUSE DROWSINESS warfarin 1 mg tablet 1 mg PO DAILY Patient Comments: TAKE ONE TABLET BY MOUTH EVERY DAY DIRECTED clopidogrel 75 mg tablet 75 mg PO DAILY Patient Comments: TAKE ONE TABLET BY MOUTH EVERY DAY atorvastatin 10 mg tablet 10 mg PO DAILY Patient Comments: TAKE ONE TABLET BY MOUTH EVERY DAY clotrimazole-betamethasone 1-0.05 % cream 1 applic topical BID 30 Days Qty: 45 3RF Horizant 600 mg tablet extended release 600 mg PO DAILY Qty: 30 2RF Rx Instructions: administer daily at approximately 5 PM with food/evening meal pentoxifylline 400 mg tablet extended release 400 mg PO TID Qty: 90 2RF Rx Instructions: must administer with a meal/food ciclopirox 8 % solution 1 applic topical DAILY 28 Days Qty: 6.6 2RF warfarin 5 MG tablet 5 mg PO DAILY Patient Comments: TAKE 3 TABLETS BY MOUTH EVERY DAY DIRECTED hydroxychloroquine 200 MG tablet 200 mg PO DAILY gabapentin 300 mg capsule 300 mg PO TID Patient Comments: TAKE ONE CAPSULE BY MOUTH THREE TIMES DAILY MAY CAUSE DROWSINESS ergocalciferol (vitamin D2) 1,250 mcg (50,000 unit) capsule 50,000 unit PO WEEKLY Patient Comments: TAKE ONE CAPSULE BY MOUTH EVERY WEEK guaifenesin [Mucus Relief ER] 600 mg tablet extended release 12hr 600 mg PO NEEDED PRN (Reason: Allergy Symptoms) Patient Comments: TAKE ONE TABLET BY MOUTH EVERY TWELVE HOURS NEEDED leflunomide 10 mg tablet 20 mg PO DAILY Patient Comments: TAKE ONE TABLET BY MOUTH EVERY DAY DIRECTED Referrals Follow up/Referrals: Brionna Medeiros DPM [Staff Physician] - See instructions Amrit Cordon APRN [Primary Care Provider] - See instructions Activity Restrictions/Add. Instructions Additional Instructions/Restrictions: As we discussed please follow-up with Dr. Medeiros as soon as she is able to see you for reevaluation. I recommend continuing utilizing Tylenol ice rest compression elevation as tolerated. I have sent you home with an Ortho boot. If you have worsening signs or symptoms return to the ER as needed. Clinical Impressions Clinical Impression: Left ankle sprain Qualifiers: Encounter type: initial encounter Involved ligament of ankle: unspecified ligament Qualified Code(s): S93.402A - Sprain of unspecified ligament of left ankle, initial encounter Stand Alone Forms Stand Alone Forms: Work/School Release Instructions Patient Instructions: DI for Ankle Sprain, How to Prevent Falls Print Language Print Language: Maldivian Discharge ED Provider: Jean Oates General Adult HPI <FRANCIE Pierre - Last Filed: 06/14/24 15:50> General Chief complaint: Fall Stated complaint: AO-06/14 1130am-pain and swelling L ankle Time Seen by Provider: 06/14/24 13:54 Mode of Arrival: Ambulatory Source of Information: Patient Description of Symptoms (Recalled from ER Triage Doc. by RN): Pt states he fell at 1130am today. Pt states he was getting of the vehicle and fell. Pt states he felt a popping sensation. Pt denies LOC, but states he did hit his head. Pt is on coumadin. History of Present Illness HPI narrative: Patient presents for evaluation of a left ankle injury. Patient at baseline has several chronic comorbid conditions including antiphospholipid syndrome scleroderma SLE and chronically follows with podiatry for acquired pes planus and gets corticosteroid injections the most recent being on June 05. As such patient has baseline gait instability and occasionally loses balance. Today he was getting out of his car and patient had a fall injuring his left ankle. Patient struck the back of his head on the car door but did not lose consciousness has no vision changes but he had a very difficult time standing back up due to the pain. It took him 30 minutes to get back to his feet however he was able to bear weight afterwards. He denies any numbness or tingling loss of motor or sensory but still reports that it is hurting him. Related Data Home Medications ?Medication ?Instructions ?Recorded ?Confirmed hydroxychloroquine 200 mg tablet 200 mg PO DAILY Supplement 10/17/18 06/05/24 warfarin 5 mg tablet 5 mg PO DAILY Blood thinner 10/17/18 06/05/24 ergocalciferol (vitamin D2) 1,250 50,000 unit PO WEEKLY Supplement 12/31/21 06/05/24 mcg (50,000 unit) capsule gabapentin 300 mg capsule 300 mg PO TID Pain 12/31/21 06/05/24 guaifenesin 600 mg tablet, 600 mg PO NEEDED PRN Allergy 12/31/21 06/05/24 extended release 12 hr (Mucus Symptoms Relief ER) warfarin 3 mg tablet 3 mg PO DAILY 03/10/22 06/05/24 atorvastatin 10 mg tablet 10 mg PO DAILY 08/19/22 06/05/24 clopidogrel 75 mg tablet 75 mg PO DAILY 08/19/22 06/05/24 hydrocodone 10 mg-acetaminophen 1 tab PO BID Pain 08/19/22 06/05/24 325 mg tablet methocarbamol 750 mg tablet 750 mg PO DAILY PRN Pain 08/19/22 06/05/24 warfarin 1 mg tablet 1 mg PO DAILY 08/19/22 06/05/24 leflunomide 10 mg tablet 20 mg PO DAILY . 09/21/22 06/05/24 Previous Rx's ?Medication ?Instructions ?Recorded gabapentin enacarbil 600 mg 600 mg PO DAILY RLS #30 tabs 12/07/22 tablet,extended release (Horizant ER) pentoxifylline 400 mg 400 mg PO TID #90 tabs 12/07/22 tablet,extended release ciclopirox 8 % topical solution 1 applic topical DAILY 4 weeks 03/08/23 #6.6 mL clotrimazole-betamethasone 1 1 applic topical BID lesion 30 04/19/23 %-0.05 % topical cream days #45 grams Allergies Allergy/AdvReac Type Severity Reaction Status Date / Time No Known Allergies Allergy Verified 06/05/24 10:06 [facility] <FRANCIE Pierre - Last Filed: 06/14/24 15:50> [facility] Disclaimer: The information contained in this section may have been updated after the patient was seen, as this information can be updated by other users. Family History Grandmother Asthma Father Hypertension Diabetes Social History Smoking Status: Unknown if ever smoked alcohol intake: never substance use type: denies use current occupational status: unemployed Travel in the last 8 weeks: None household members: spouse housing: house marital status: Have you lived/traveled outside [place] in past 30 days?: No Contact w/someone who lives/traveled outside US past 30 days?: No Exposure to someone with infectious disease in past 14 days?: No Do you have a fever (greater than 100.4 F or 38 C)?: No Have you tested positive for COVID-19: No Exposed to someone with COVID-19 in past 14 days?: No Do you have a sore throat?: No Do you have a cough?: No Do you have any weakness?: No Do you have any diarrhea?: No Are you experiencing any unusual bleeding?: No Do you have any muscle aches/pain?: No Do you have any abdominal pain?: No Are you experiencing loss of taste or smell?: No Other Medical History Have you received the Flu Vaccine for this season: No Have you received the Pneumonia Vaccine: No <FRANCIE Pierre - Last Filed: 06/14/24 15:50> ROS Obtained: Yes Systems reviewed as appropriate & no additional complaints except as documented Physical Exam <FRANCIE Pierre - Last Filed: 06/14/24 15:50> General General appearance: alert and in no apparent distress Respiratory Respiratory exam: Present normal lung sounds bilaterally Cardiovascular Cardiovascular exam: Present regular rate Neurological Exam Neurological exam: Present alert and oriented X3 Medical Decision Making <FRANCIE Pierre - Last Filed: 06/14/24 15:50> Medical Records Medical records reviewed: Yes I reviewed the patient's medical records. Screening: Per USPSTF and CDC recommendations, given the prevalence of disease in our region, it is our hospital?s policy to screen for HIV and viral Hepatitis for all patients aged 18 and over and those with ongoing risk factors. Mayank Inquiry Pt receiving controlled substance: No Vital Signs: 06/14/24 13:36 06/14/24 14:20 06/14/24 14:30 Temperature 98.4 F Temperature Source Oral Pulse Rate 82 79 Pulse Rate [Right] 86 Respiratory Rate 18 Blood Pressure 123/89 114/82 Blood Pressure [Right Arm] 137/94 H Blood Pressure Mean [Right Arm] 108 Blood Pressure Source Blood Pressure Source [Right Arm] Automatic Cuff Blood Pressure Position [Right Arm] Sitting 02 Sat by Pulse Oximetry 100 98 98 Oxygen Delivery Method Room Air Room Air 06/14/24 15:00 06/14/24 15:12 Temperature 98.4 F Temperature Source Oral Pulse Rate 76 79 Pulse Rate [Right] Respiratory Rate 16 Blood Pressure 126/85 126/85 Blood Pressure [Right Arm] Blood Pressure Mean [Right Arm] Blood Pressure Source Automatic Cuff Blood Pressure Source [Right Arm] Blood Pressure Position [Right Arm] 02 Sat by Pulse Oximetry 99 Oxygen Delivery Method Room Air Room Air Orders (Tests/Meds): ED MEDICATIONS Discontinued Medications Generic Name Dose Route Start Last Admin Trade Name Ishan PRN Reason Stop Dose Admin Acetaminophen 1,000 mg 06/14/24 14:00 06/14/24 14:12 Acetaminophen 500mg Tab PO 06/14/24 14:01 1,000 mg ONCE ONE Administration Oxycodone HCl 10 mg 06/14/24 14:00 06/14/24 14:12 Oxycodone 5mg Immediate Release Tablet PO 06/14/24 14:01 10 mg ONCE ONE Administration ORDERS Category Date Time Status CT cervical spine wo con Stat Cat Scan 06/14/24 13:[address] head/brain wo con Stat Cat Scan 06/14/24 14:00 Completed XR ankle LT min 3V Stat Exams 06/14/24 13:52 Completed Medical Decision Narrative: In summary patient is a 33-year-old male who presents to the emergency department for evaluation of a fall and left ankle injury. Patient is hemodynamically stable upon arrival, afebrile. Physical exam is remarkable for small abrasion on his occiput but no depressed skull fracture. He has no bony deformity. He has no C-spine tenderness. He has full range of motion of the C- spine to 45 degrees without pain. Patient's [place] Coma Score 15 he is awake alert and oriented person place circumstance extraocular moods are intact without pain pupils equal round reactive to light. At the left ankle he has bimalleolar tenderness to palpation but swelling at the lateral malleolus without ecchymosis. He has no forefoot tenderness. He is neurovascular intact distally.. Differential diagnosis includes cervical spine injury versus intracranial bleed versus ankle sprain versus ankle fracture etc. Initial workup will be conducted with CT scan of the head and C-spine without contrast plain film x-ray of the ankle. Initial interventions include acetaminophen and oxycodone as patient is already on Coumadin. Initial workup reviewed by me and my informal interpretation of his plain film imaging shows no acute bony injury of his ankle and of his CT scan shows no acute intracranial C-spine injury.. Upon repeat evaluation patient had difficulty bearing weight and was more unstable standing that is baseline. Given this I had a shared decision-making discussion with the patient regarding crutches walking boot and weightbearing as tolerated. Via patient directed decision making discharge patient felt crutches were too cumbersome and likely more risky for him but after application of walking boot he was much more stable and tolerating bearing weight. Subsequently patient was appropriate for discharge with close follow-up with podiatry as he is already established care with a walking boot. Advised him to rest ice compression elevation to reduce symptomatic complaints. <Jean Oates MD - Last Filed: 06/14/24 21:15> Vital Signs: 06/14/24 13:36 06/14/24 14:20 06/14/24 14:30 Temperature 98.4 F Temperature Source Oral Pulse Rate 82 79 Pulse Rate [Right] 86 Respiratory Rate 18 Blood Pressure 123/89 114/82 Blood Pressure [Right Arm] 137/94 H Blood Pressure Mean [Right Arm] 108 Blood Pressure Source Blood Pressure Source [Right Arm] Automatic Cuff Blood Pressure Position [Right Arm] Sitting 02 Sat by Pulse Oximetry 100 98 98 Oxygen Delivery Method Room Air Room Air 06/14/24 15:00 06/14/24 15:12 Temperature 98.4 F Temperature Source Oral Pulse Rate 76 79 Pulse Rate [Right] Respiratory Rate 16 Blood Pressure 126/85 126/85 Blood Pressure [Right Arm] Blood Pressure Mean [Right Arm] Blood Pressure Source Automatic Cuff Blood Pressure Source [Right Arm] Blood Pressure Position [Right Arm] 02 Sat by Pulse Oximetry 99 Oxygen Delivery Method Room Air Room Air Orders (Tests/Meds): ED MEDICATIONS Discontinued Medications Generic Name Dose Route Start Last Admin Trade Name Freq PRN Reason Stop Dose Admin Acetaminophen 1,000 mg 06/14/24 14:00 06/14/24 14:12 Acetaminophen 500mg Tab PO 06/14/24 14:01 1,000 mg ONCE ONE Administration Oxycodone HCl 10 mg 06/14/24 14:00 06/14/24 14:12 Oxycodone 5mg Immediate Release Tablet PO 06/14/24 14:01 10 mg ONCE ONE Administration ORDERS Category Date Time Status CT cervical spine wo con Stat Cat Scan 06/14/24 13:[address] head/brain wo con Stat Cat Scan 06/14/24 14:00 Completed XR ankle LT min 3V Stat Exams 06/14/24 13:52 Completed Medical Decision Narrative: In summary patient is a 33-year-old male who presents to the emergency department for evaluation of a fall and left ankle injury. Patient is hemodynamically stable upon arrival, afebrile. Physical exam is remarkable for small abrasion on his occiput but no depressed skull fracture. He has no bony deformity. He has no C-spine tenderness. He has full range of motion of the C- spine to 45 degrees without pain. Patient's [place] Coma Score 15 he is awake alert and oriented person place circumstance extraocular moods are intact without pain pupils equal round reactive to light. At the left ankle he has bimalleolar tenderness to palpation but swelling at the lateral malleolus without ecchymosis. He has no forefoot tenderness. He is neurovascular intact distally.. Differential diagnosis includes cervical spine injury versus intracranial bleed versus ankle sprain versus ankle fracture etc. Initial workup will be conducted with CT scan of the head and C-spine without contrast plain film x-ray of the ankle. Initial interventions include acetaminophen and oxycodone as patient is already on Coumadin. Initial workup reviewed by me and my informal interpretation of his plain film imaging shows no acute bony injury of his ankle and of his CT scan shows no acute intracranial C-spine injury.. Upon repeat evaluation patient had difficulty bearing weight and was more unstable standing that is baseline. Given this I had a shared decision-making discussion with the patient regarding crutches walking boot and weightbearing as tolerated. Via patient directed decision making discharge patient felt crutches were too cumbersome and likely more risky for him but after application of walking boot he was much more stable and tolerating bearing weight. Subsequently patient was appropriate for discharge with close follow-up with podiatry as he is already established care with a walking boot. Advised him to rest ice compression elevation to reduce symptomatic complaints. I was consulted by the GILMAR, and we discussed the complexity of the problems being addressed. I approve the treatment and management plan for this patient's care in the emergency department, thus performing a substantive portion of the medical decision making. Jean Oates MD Critical Care <FRANCIE Pierre - Last Filed: 06/14/24 15:50> Critical Care Time Critical Care Time: No
--- NOTE | 2024-06-14 13:59 | CT_ITS ---
FINAL REPORT TECHNIQUE: Thin section axial CT with sagittal reconstruction without contrast This study was performed with techniques to keep radiation doses as low as reasonably achievable, (ALARA). Individualized dose reduction techniques using automated exposure control or adjustment of mA and/or kV according to the patient''s size were employed. CLINICAL HISTORY: Fell and hit head, on Coumadin FINDINGS: No fracture is seen. Alignment is normal. No obvious bony spinal canal stenosis is present. No gross disk abnormalities are seen. IMPRESSION: No fracture or malalignment Reviewed, Interpreted and Dictated by Ramin Kuhn MD Transcribed by Amy Chavarria Authenticated and [facility]
--- NOTE | 2024-06-14 14:00 | CT_ITS ---
FINAL REPORT TECHNIQUE: Noncontrast exam This study was performed with techniques to keep radiation doses as low as reasonably achievable, (ALARA). Individualized dose reduction techniques using automated exposure control or adjustment of mA and/or kV according to the patient''s size were employed. CLINICAL HISTORY: Fell and hit head, on Coumadin FINDINGS: No abnormal density is seen. Ventricles are normal. There is no hemorrhage. No mass effect is seen. Bone windows show no evidence of fracture. IMPRESSION: No acute findings Reviewed, Interpreted and Dictated by Ramin Kuhn MD Transcribed by Amy Chavarria Authenticated and [facility]
[2024-06-14] MEDS: ACETAMINOPHEN 500MG TAB 1000 MG PO (14:12)
[2024-06-14] MEDS: OXYCODONE 5MG IMMEDIATE RELEASE TABLET 10 MG PO (14:12)
[2024-06-14 14:20] VITALS: BP 123/89; PULSE 82; O2SAT 98
[2024-06-14 14:30] VITALS: BP 114/82; PULSE 79; O2SAT 98
--- NOTE | 2024-06-14 14:39 | PC.NURSE ---
PT ARRIVED BACK TO ROOM FROM CT AND XRAY
[2024-06-14 15:00] VITALS: BP 126/85; PULSE 76; O2SAT 99
[2024-06-14 15:12] VITALS: BP 126/85; PULSE 79; RESP 16; TEMP 36.9; O2SAT 98
== END 2024-06-14 15:13 | disposition home or self-care (01) ==
PROVIDERS: Emergency Provider Student in an Organized Health Care Education/Training Program; PCP Nurse Practitioner Family
DX: S93.402A Sprain of unspecified ligament of left ankle, initial encounter (principal); M25.572 Pain in left ankle and joints of left foot; W17.89XA Other fall from one level to another, initial encounter; Y93.89 Activity, other specified; Y92.89 Other specified places as the place of occurrence of the external cause
CPT/HCPCS: 70450; 72125; 73610; 99284

== ENCOUNTER 2024-08-15 12:50 | Outpatient (CLI) | payer OTHER, SELFPAY ==
--- OUTSIDE RECORDS SUMMARY | 2024-08-15 12:52 | XMS_ITS | Data Portability ---
Author Organization TOSIN David [facility] CLOSED Address [address] [place] [address] Care Team Providers Care Float Phlebotomist Name Role Phone WEN GROVE Primary Care Provider DEBORAH HAMMOND Splitting Machine Operator [phone] Assessment No assessment recorded. Plan of Treatment Reminders Order Date Submit Date Provider Last Modified By Organization Details Last Modified Time Details Appointments RHEUM RECHECK 2024 11:30A M DEBORAH HAMMOND MD Not available Not available Not available Lab CBC w/ auto diff 2024 025 [email or web address] [facility] (Lab), [address], [place], [address], 08/01/2024 08:12:44 CMP, serum or plasma 2024 025 [email or web address] [facility] (Lab), [address], [place], [address], 08/01/2024 08:12:44 ESR (erythro cyte sediment ation rate), blood 2024 025 [facility] (Lab), [address], [place], [address], 08/01/2024 08:12:44 C reactive protein, QN, serum or plasma 2024 025 [email or web address] [facility] (Lab), [address], [place], [address], 08/01/2024 08:12:45 CBC w/ auto diff [address] (Lab), [address], [place], [address], 08/01/2024 08:12:44 CMP, serum or plasma [address] (Lab), [address], [place], [address], 08/01/2024 08:12:44 ESR (erythro cyte sediment ation rate), blood [address] (Lab), [address], [place], [address], 08/01/2024 08:12:44 C reactive protein, QN, serum or plasma [address] (Lab), [address], [place], [address], 08/01/2024 08:12:44 CBC w/ auto diff [address] [facility], [address] [place] [address], [address], 05/22/2024 08:17:35 CMP, serum or plasma [address] [facility], [address] [place] [address], [address], 05/22/2024 08:17:35 ESR (erythro cyte sediment ation rate), blood [address] [facility], [address] [place] [address], [address], 05/22/2024 08:17:35 C reactive protein, QN, serum or plasma 2024 025 [email or web address] [facility], [address] [place] [address], [address], 05/22/2024 08:17:35 CBC w/ auto diff 2024 025 [facility], [address] [place] [address], [address], 05/29/2024 08:06:56 CMP, serum or plasma 2024 025 [facility], [address] [place] [address], [id number], 05/29/2024 08:06:52 ESR (erythro cyte sediment ation rate), blood 2024 025 [facility], [address] [place] [address], [address], 05/29/2024 08:06:47 C reactive protein, QN, serum or plasma 2024 025 [facility], [address] [place] [address], [address], 05/29/2024 08:06:43 C reactive protein, QN, serum or plasma 2024 025 [facility], [address] [place] [address], [address], 06/05/2024 08:06:27 ESR (erythro cyte sediment ation rate), blood 2024 025 [facility], [address] [place] [address], [address], 06/05/2024 08:06:09 CMP, serum or plasma 2024 025 [facility], [address] [place] [address], [address], 06/05/2024 08:06:03 CBC w/ auto diff 2024 025 [facility], [address] [place] [address], [address], 06/05/2024 08:05:58 CBC w/ auto diff 2024 025 [facility], [address] [place] [address], [address], 06/12/2024 08:11:57 CMP, serum or plasma 2024 025 [facility], [address] [place] [address], [address], 06/12/2024 08:11:53 ESR (erythro cyte sediment ation rate), blood 2024 025 [facility], [address] [place] [address], [address], 06/12/2024 08:11:49 C reactive protein, QN, serum or plasma 2024 025 [facility], [address] [place] [address], [address], 06/12/2024 08:11:45 C reactive protein, QN, serum or plasma 2024 025 [facility], [address] [place] [address], [address], 06/21/2024 08:29:05 ESR (erythro cyte sediment ation rate), blood 2024 025 [facility], [address] [place] [address], [address], 06/21/2024 08:29:01 CMP, serum or plasma 2024 025 [facility], [address] [place] [address], [address], 06/21/2024 08:28:39 CBC w/ auto diff 2024 [facility], [address] [place] [address], [address], 06/21/2024 08:28:36 lupus anticoag ulant, plasma 2023 [facility], [address] [place] [address], [address], 02/22/2024 22:55:52 anticard iolipin igg+igm Ab, serum 2023 [facility], [address] [place] [address], [address], 02/20/2024 04:51:35 beta-2 glycopro tein 1 Ab, serum 2023 [facility], [address] [place] [address], [address], 02/20/2024 04:41:27 JENNA (antinuc lear antibodi es) titer + pattern, ifa, serum [email or web address] [place] [address], [address] [place] [address], [address], 04/05/2024 17:28:24 JENNA (antinuc lear antibodi es) panel, serum 2023 [facility], [address] [place] [address], [address], 02/20/2024 10:31:40 C3 (complem ent), serum or plasma 2023 [facility], [address] [place] [address], [address], 02/21/2024 16:04:25 C4 (complem ent), serum or plasma 2023 [facility], [address] [place] [address], [address], 02/21/2024 16:04:28 dsDNA Ab, serum 2023 [facility], [address] [place] [address], [id number], 04/05/2024 17:28:24 CBC w/ auto diff 2023 [facility], [address] [place] [address], [address], 02/18/2024 14:11:14 CMP, serum or plasma 2023 [facility], [address] [place] [address], [address], 02/18/2024 20:14:29 ESR (erythro cyte sediment ation rate), blood 2023 024 [facility], [address] [place] [address], [address], 02/18/2024 14:35:59 C reactive protein, QN, serum or plasma 2023 024 [facility], [address] [place] [address], [address], 02/18/2024 20:14:31 rf (rheumat oid factor), serum 2023 024 [facility], [address] [place] [address], [address], 02/18/2024 20:14:28 ccp (cyclic citrulli nated peptide) iga+igg, serum 2023 024 [facility], [address] [place] [address], [address], 02/23/2024 16:08:06 urinalys is complete , reflex culture 2023 024 [facility], [address] [facility], [place], [address], 02/18/2024 14:38:24 Referral vascular surgeon referral 2024 025 [email or web address] Alfredo Myers MD, [address] [facility], [place], [address], 07/28/2024 15:27:55 Procedures None recorded . Surgeries None recorded . Imaging XR, lumbosac ral spine, 2 or 3 view 2023 024 [facility], [address] [place] [address] , [place], [address], 02/18/2024 13:51:56 XR, knee, 1 or 2 view 2023 024 [facility], [address] [place] [address] , [place], [address], 02/18/2024 14:07:07 XR, ankle, 2 view 2023 024 [facility], [address] [place] [address] , [place], [address], 02/18/2024 14:07:47 Medication Orders hydroxyc hloroqui ne 200 mg tablet 2024 025 [facility], [address] [place] [address], [id number], 07/25/2024 12:49:45 leflunom nolberto 20 mg tablet 2024 025 [facility], [address] [place] [address] [address] [address] [place], [place], [id number], 07/25/2024 12:49:44 hydroxyc hloroqui ne 200 mg tablet 2024 025 [facility], [address] [place] [address] [place], [id number], 06/16/2024 17:09:19 leflunom nolberto 20 mg tablet 2024 025 [facility], [address] [place] [address] [address] [place], [id number], 06/23/2024 08:31:40 hydroxyc hloroqui ne 200 mg tablet 2023 024 [facility], [address] [place] [address] [address] [place], [id number], 03/16/2024 16:38:26 leflunom nolberto 20 mg tablet 2023 024 [facility], [address] [place] [address] [address] [place], [id number], 06/16/2024 17:09:22 Patient TargetsNo targets recorded. Patient Instructions Encounter Date Encounter Id Patient Instructions Last Modified By Organization Details Last Modified Time 02/18/2024 [id number] medical record request* - Please send MRI of the ankles, X rays of the ankles, last office notes Not available 03/17/2024 08:52:35 medical record request* - Please send last office visit notes. Not available 03/17/2024 08:52:35 medical record request* - Please get the last office notes from Asya Rodríguez and Dr. Young at [facility] rheumatology. Please send labs from initial visit with Dr. Young. Not available 03/17/2024 08:52:35 I spent >60 minutes caring for the patient today with direct counseling, coordinating care, extensive review of outside records, medication management, and documentation. [email or web address] Not available 02/19/2024 13:06:00 07/25/2024 [id number] medical record request* - Please send last labs done in April [email or web address] Not available 08/01/2024 08:14:09 Reason for Referral Vascular Surgeon Referral fo r Peripheral venous insufficiency Referring Physician: Deborah Hammond, Rheumatology, Encounter Date: 07/25/2024 Results Created Date Observation Date Name Description Value Unit Range Abnormal Flag Note LastModifiedBy Organization Detail LastModifiedTime 02/18/20 24 02/18/2024 COMPL ETE BLOOD COUNT white blood cells 5.3 10*3/ uL 3.8-10 .8 normal Not Available [facility] [address] [place] [address], [address], 02/18/2024 14:11:14 02/18/20 24 02/18/2024 COMPL ETE BLOOD COUNT red blood cells 5.11 10*6/ uL 4.20-5 .80 normal Not Available [facility] [address] [place] [address], [address], 02/18/2024 14:11:14 02/18/20 24 02/18/2024 COMPL ETE BLOOD COUNT hemoglobin 15.6 g/dL 14.0-1 8.0 normal Not Available [facility] [address] [place] [address], [address], 02/18/2024 14:11:14 02/18/20 24 02/18/2024 COMPL ETE BLOOD COUNT hematocrit 45.4 % 40.0-5 2.0 normal Not Available [facility] [address] [place] [address], [address], 02/18/2024 14:11:14 02/18/20 24 02/18/2024 COMPL ETE BLOOD COUNT MCV 89 fL 80-100 normal Not Available [facility] [address] [place] [address], [address], 02/18/2024 14:11:14 02/18/20 24 02/18/2024 COMPL ETE BLOOD COUNT MCH 31 pg 26-35 normal Not Available [facility] [address] [place] [address], [address], 02/18/2024 14:11:14 02/18/20 24 02/18/2024 COMPL ETE BLOOD COUNT MCHC 34 g/dL 32-36 normal Not Available [facility] [address] [place] [address], [address], 02/18/2024 14:11:14 02/18/20 24 02/18/2024 COMPL ETE BLOOD COUNT RDW 13.8 % 11.0-1 5.0 normal Not Available [facility] [address] [place] [address], [address], 02/18/2024 14:11:14 02/18/20 24 02/18/2024 COMPL ETE BLOOD COUNT MPV 8.4 fL 6.2-10 .5 normal Not Available [facility] [address] [place] [address], [address], 02/18/2024 14:11:14 02/18/20 24 02/18/2024 COMPL ETE BLOOD COUNT platelet count 219 10*3/ uL 150-40 0 normal Not Available [facility] [address] [place] [address], [address], 02/18/2024 14:11:14 02/18/20 24 02/18/2024 COMPL ETE BLOOD COUNT neutrophil,a bsolute 3.4 10*3/ uL 1.6-8. 4 normal Not Available [facility] [address] [place] [address], [address], 02/18/2024 14:11:14 02/18/20 24 02/18/2024 COMPL ETE BLOOD COUNT lymphocyte,a bsolute 1.2 10*3/ uL 0.4-5. 1 normal Not Available [facility] [address] [place] [address], [address], 02/18/2024 14:11:14 02/18/20 24 02/18/2024 COMPL ETE BLOOD COUNT monocyte,abs olute 0.6 10*3/ uL 0.0-1. 2 normal Not Available [facility] [address] [place] [address], [address], 02/18/2024 14:11:14 02/18/20 24 02/18/2024 COMPL ETE BLOOD COUNT eosinophil,a bsolute 0.1 10*3/ uL 0.0-0. 8 normal Not Available [facility] [address] [place] [address], [address], 02/18/2024 14:11:14 02/18/20 24 02/18/2024 COMPL ETE BLOOD COUNT basophil,abs olute 0.0 10*3/ uL 0.0-0. 3 normal Not Available [facility] [address] [place] [address], [address], 02/18/2024 14:11:14 02/18/20 24 02/18/2024 COMPL ETE BLOOD COUNT % neutrophils 63.5 % 42.0-7 8.0 normal Not Available [facility] [address] [place] [address], [address], 02/18/2024 14:11:14 02/18/20 24 02/18/2024 COMPL ETE BLOOD COUNT % lymphocytes 23.3 % 11.0-4 7.0 normal Not Available [facility] [address] [place] [address], [address], 02/18/2024 14:11:14 02/18/20 24 02/18/2024 COMPL ETE BLOOD COUNT % monocytes 10.5 % 0.0-11 .0 normal Not Available [facility] [address] [place] [address], [address], 02/18/2024 14:11:14 02/18/20 24 02/18/2024 COMPL ETE BLOOD COUNT % eosinophils 1.8 % 0.0-7. 0 normal Not Available [facility] [address] [place] [address], [address], 02/18/2024 14:11:14 02/18/20 24 02/18/2024 COMPL ETE BLOOD COUNT % basophils 0.9 % 0.0-3. 0 normal Not Available [facility] [address] [place] [address], [address], 02/18/2024 14:11:14 02/18/20 24 02/18/2024 COMPL ETE BLOOD COUNT nucleated red cells 0.1 % 0.0-0. 9 normal Not Available [facility] [address] [place] [address], [address], 02/18/2024 14:11:14 02/18/20 24 02/18/2024 COMPL ETE BLOOD COUNT nucleated RBCs, absolute 0.00 10*3/ uL not estab. normal Not Available [facility] [address] [place] [address], [address], 02/18/2024 14:11:14 02/18/20 24 02/18/2024 ESR, AUTOM ATED ESR, automated 9 mm 0-14 normal Not Available [facility] [address] [place] [address], [address], 02/18/2024 14:35:59 02/18/20 24 02/18/2024 UA WITH CULTU RE IF INDIC ATED color Yellow normal Not Available [facility] [address] [place] [address], [address], 02/18/2024 14:38:24 02/18/20 24 02/18/2024 UA WITH CULTU RE IF INDIC ATED appearance Clear normal Not Available [facility] [address] [place] [address], [address], 02/18/2024 14:38:24 02/18/20 24 02/18/2024 UA WITH CULTU RE IF INDIC ATED glucose Normal mg/dL normal normal Not Available [facility] [address] [place] [address], [address], 02/18/2024 14:38:24 02/18/20 24 02/18/2024 UA WITH CULTU RE IF INDIC ATED bilirubin Negati ve mg/dL negati ve normal Not Available [facility] [address] [place] [address], [address], 02/18/2024 14:38:24 02/18/20 24 02/18/2024 UA WITH CULTU RE IF INDIC ATED ketone Negati ve mg/dL negati ve normal Not Available [facility] [address] [place] [address], [address], 02/18/2024 14:38:24 02/18/20 24 02/18/2024 UA WITH CULTU RE IF INDIC ATED specific gravity 1.028 1.003- 1.035 normal Not Available [facility] [address] [place] [address], [address], 02/18/2024 14:38:24 02/18/20 24 02/18/2024 UA WITH CULTU RE IF INDIC ATED blood Negati ve /uL negati ve normal Not Available [facility] [address] [place] [address], [address], 02/18/2024 14:38:24 02/18/20 24 02/18/2024 UA WITH CULTU RE IF INDIC ATED pH 6 5.0 - 8.0 normal Not Available [facility] [address] [place] [address], [address], 02/18/2024 14:38:24 02/18/20 24 02/18/2024 UA WITH CULTU RE IF INDIC ATED protein Negati ve mg/dL negati ve normal Not Available [facility] [address] [place] [address], [address], 02/18/2024 14:38:24 02/18/20 24 02/18/2024 UA WITH CULTU RE IF INDIC ATED urobilinogen Normal mg/dL normal normal Not Available [facility] [address] [place] [address], [address], 02/18/2024 14:38:24 02/18/20 24 02/18/2024 UA WITH CULTU RE IF INDIC ATED nitrite Negati ve negati ve normal Not Available [facility] [address] [place] [address], [address], 02/18/2024 14:38:24 02/18/20 24 02/18/2024 UA WITH CULTU RE IF INDIC ATED leukocyte esterase Negati ve /uL negati ve normal Not Available [facility] [address] [place] [address], [address], 02/18/2024 14:38:24 02/18/20 24 02/18/2024 UA WITH CULTU RE IF INDIC ATED mucus, urine 4+ /lpf not establ ished normal Not Available [facility] [address] [place] [address], [address], 02/18/2024 14:38:24 02/18/20 24 02/18/2024 UA WITH CULTU RE IF INDIC ATED WBC, urine 0-5 0-5/hp f normal Not Available [facility] [address] [place] [address], [address], 02/18/2024 14:38:24 02/18/20 24 02/18/2024 UA WITH CULTU RE IF INDIC ATED RBC, urine Rare 0-2/hp f normal Not Available [facility] [address] [place] [address], [address], 02/18/2024 14:38:24 02/18/20 24 02/18/2024 UA WITH CULTU RE IF INDIC ATED squamous epi. cells 0-5 0-5/hp f normal Not Available [facility] [address] [place] [address], [address], 02/18/2024 14:38:24 02/18/20 24 02/18/2024 UA WITH CULTU RE IF INDIC ATED crystals 3+ negati ve abnormal [place] hous Not Available [facility] [address] [place] [address], [address], 02/18/2024 14:38:24 02/18/20 24 02/18/2024 UA WITH CULTU RE IF INDIC ATED crystals Trace negati ve normal Calci um Oxala te Not Available [facility] [address] [place] [address], [address], 02/18/2024 14:38:24 02/18/20 24 02/18/2024 UA WITH CULTU RE IF INDIC ATED reflex culture see below normal UA resul ts do not meet cultu re crite stephanie. Not Available [facility] [address] [place] [address], [address], 02/18/2024 14:38:24 02/18/20 24 02/18/2024 RF SCREE N, QUANT . rf screen, quant. <10.0 [IU]/ mL 0.0-13 .9 normal Not Available [facility] [address] [place] [address], [address], 02/18/2024 20:14:27 02/18/20 24 02/18/2024 COMP. METAB OLIC PANEL glucose 67 mg/dL 74-100 low Not Available [facility] [address] [place] [address], [address], 02/18/2024 20:14:29 02/18/20 24 02/18/2024 COMP. METAB OLIC PANEL blood urea nitrogen 10 mg/dL 6-20 normal Not Available [facility] [address] [place] [address], [address], 02/18/2024 20:14:29 02/18/20 24 02/18/2024 COMP. METAB OLIC PANEL creatinine 0.94 mg/dL 0.70-1 .28 normal Not Available [facility] [address] [place] [address], [address], 02/18/2024 20:14:29 02/18/20 24 02/18/2024 COMP. METAB OLIC PANEL BUN/creatini ne ratio 11 (calc ) 10-20 normal Not Available [facility] [address] [place] [address], [address], 02/18/2024 20:14:29 02/18/20 24 02/18/2024 COMP. METAB OLIC PANEL sodium 142 mmol/ L 136-14 5 normal Not Available [facility] [address] [place] [address], [address], 02/18/2024 20:14:29 02/18/20 24 02/18/2024 COMP. METAB OLIC PANEL potassium 3.7 mmol/ L 3.4-5. 0 normal Not Available [facility] [address] [place] [address], [address], 02/18/2024 20:14:29 02/18/20 24 02/18/2024 COMP. METAB OLIC PANEL chloride 104 mmol/ L 98-107 normal Not Available [facility] [address] [place] [address], [address], 02/18/2024 20:14:29 02/18/20 24 02/18/2024 COMP. METAB OLIC PANEL carbon dioxide 26 mmol/ L 22-31 normal Not Available [facility] [address] [place] [address], [address], 02/18/2024 20:14:29 02/18/20 24 02/18/2024 COMP. METAB OLIC PANEL anion gap 12 (calc ) 7-25 normal Not Available [facility] [address] [place] [address], [address], 02/18/2024 20:14:29 02/18/20 24 02/18/2024 COMP. METAB OLIC PANEL calcium 9.4 mg/dL 8.6-10 .2 normal Not Available [facility] [address] [place] [address], [address], 02/18/2024 20:14:29 02/18/20 24 02/18/2024 COMP. METAB OLIC PANEL total protein 7.0 g/dL 6.4-8. 3 normal Not Available [facility] [address] [place] [address], [address], 02/18/2024 20:14:29 02/18/20 24 02/18/2024 COMP. METAB OLIC PANEL albumin 4.6 g/dL 3.5-5. 2 normal Not Available [facility] [address] [place] [address], [address], 02/18/2024 20:14:29 02/18/20 24 02/18/2024 COMP. METAB OLIC PANEL globulin 2.4 1.5-4. 5 normal Not Available [facility] [address] [place] [address], [address], 02/18/2024 20:14:29 02/18/20 24 02/18/2024 COMP. METAB OLIC PANEL albumin/glob ulin ratio 1.9 (calc ) 1.1-2. 5 normal Not Available [facility] [address] [place] [address], [address], 02/18/2024 20:14:29 02/18/20 24 02/18/2024 COMP. METAB OLIC PANEL bilirubin, total 0.6 mg/dL 0.1-1. 2 normal Not Available [facility] [address] [place] [address], [address], 02/18/2024 20:14:29 02/18/20 24 02/18/2024 COMP. METAB OLIC PANEL alkaline phosphatase 59 U/L 40-129 normal Not Available [facility] [address] [place] [address], [address], 02/18/2024 20:14:29 02/18/20 24 02/18/2024 COMP. METAB OLIC PANEL AST 21 U/L 0-40 normal Not Available [facility] [address] [place] [address], [address], 02/18/2024 20:14:29 02/18/20 24 02/18/2024 COMP. METAB OLIC PANEL ALT 29 U/L 0-41 normal Not Available [facility] [address] [place], [address], 02/18/2024 20:14:29 02/18/20 24 02/18/2024 COMP. METAB OLIC PANEL GFR 110 >= 60 normal NOT E New calcu latio n for GFR (CKD- EPI 2020) is formu lated witho ut race adjus tment facto rs at the recom menda tion of the [facility] and [place] [facility]r [facility] . This calcu latio n has not been valid ated in pregn ant women . For pedia bernie patie nts refer to https :[email or web address] rea.kevin hayes/alphonse calderon s/KDO QI/gf r_cal culat orPed Not Available [facility] [address] [place], [address], 02/18/2024 20:14:29 02/18/20 24 02/18/2024 C REACT CHERRIE PROTE IN C reactive protein 0.08 mg/dL 0.00-0 .49 normal Not Available [facility] [address] [place], [address], 02/18/2024 20:14:31 02/18/20 24 02/20/2024 BETA 2 GLYCO PROTE IN I ABS B2-glycoprot ein I IgG 16.2 U/mL normal Value Inter preta tion ----- ----- ----- ---- < 20.0 Antib lisa not detec saba > or = 20.0 Antib lisa detec saba The antip hosph olipi d antib lisa syndr ome (APS) is a clini chris-p athol ogic corre latio n that inclu mariana a clini chris event (e.g. arter ial or venou s throm bosis , pregn cristine morbi dity) and persi stent posit cherrie antip hosph olipi d antib odies (IgM, IgG Cardi olipi n or b2GPI antib odies great er than the 99th perce ntile ; or a lupus antic oagul ant). Inter natio nal conse nsus guide lines for APS sugge st waiti ng at least 12 weeks befor e retes ting to confi rm antib lisa persi stenc e. The Syste darshan Lupus Inter natio nal Colla borat ing Clini cs immun ologi chris class ifica tion crite stephanie for syste darshan lupus eryth emato praveena (SLE) inclu de testi ng for isoty pe IgA, which has yet to be incor porat ed into APS crite stephanie. Low level antip hosph olipi d antib odies may somet imes be detec saba in the setti ng of infec tion, drug thera py or aging . For addit ional infor boby hernandez e refer to http: //[email or web address]rendan byers.que stdia gnost ics.c om/fa q/FAQ 109 (This link is being provi ded for infor [place] dent/ educa nevaeh l purpo ses only. ) Not Available [facility], [place], [address], 02/20/2024 04:51:32 02/18/2002/20/2024 BETA 2 GLYCO PROTE IN I ABS B2-glycoprot ein I IgM 2.3 U/mL normal Value Inter preta tion ----- ----- ----- ---- < 20.0 Antib lisa not detec saba > or = 20.0 Antib lisa detec saba The antip hosph olipi d antib lisa syndr ome (APS) is a clini chris-p athol ogic corre latio n that inclu mariana a clini chris event (e.g. arter ial or venou s throm bosis , pregn cristine morbi dity) and persi stent posit cherrie antip hosph olipi d antib odies (IgM, IgG Cardi olipi n or b2GPI antib odies great er than the 99th perce ntile ; or a lupus antic oagul ant). Inter natio nal conse nsus guide lines for APS sugge st waiti ng at least 12 weeks befor e retes ting to confi rm antib lisa persi stenc e. The Syste darshan Lupus Inter natio nal Colla borat ing Clini cs immun ologi chris class ifica tion crite stephanie for syste darshan lupus eryth emato praveena (SLE) inclu de testi ng for isoty pe IgA, which has yet to be incor porat ed into APS crite stephanie. Low level antip hosph olipi d antib odies may somet imes be detec saba in the setti ng of infec tion, drug thera py or aging . For addit ional infor [place] byers, boby e refer to http: //[email or web address]ers.que stdia gnost ics.c om/fa q/FAQ 109 (This link is being provi ded for infor [place] dent/ educa nevaeh l purpo ses only. ) Not Available [facility] [address] [place] [address], [place], [address], 02/20/2024 04:51:32 02/18/2002/20/2024 BETA 2 GLYCO PROTE IN I ABS B2-glycoprot ein I IgA 8.9 U/mL normal Value Inter preta tion ----- ----- ----- ---- < 20.0 Antib lisa not detec saba > or = 20.0 Antib lisa detec saba The antip hosph olipi d antib lisa syndr ome (APS) is a clini chris-p athol ogic corre latio n that inclu mariana a clini chris event (e.g. arter ial or venou s throm bosis , pregn cristine morbi dity) and persi stent posit cherrie antip hosph olipi d antib odies (IgM, IgG Cardi olipi n or b2GPI antib odies great er than the 99th perce ntile ; or a lupus antic oagul ant). Inter natio nal conse nsus guide lines for APS sugge st waiti ng at least 12 weeks befor e retes ting to confi rm antib lisa persi stenc e. The Syste darshan Lupus Inter natio nal Colla borat ing Clini cs immun ologi chris class ifica tion crite stephanie for syste darshan lupus eryth emato praveena (SLE) inclu de testi ng for isoty pe IgA, which has yet to be incor porat ed into APS crite stephanie. Low level antip hosph olipi d antib odies may somet imes be detec saba in the setti ng of infec tion, drug thera py or aging . For addit ional infor boby hernandez e refer to http: //[email or web address].que stdia gnost ics.c om/fa q/FAQ 109 (This link is being provi ded for infor [place] nal/ educa nevaeh l purpo ses only. ) Not Available [facility] [address] [place], [address], 02/20/2024 04:51:32 02/18/20 24 02/20/2024 ANTIC ARDIO LIPIN ABS anticardioli pin, IgG 5.2 gpl-U /mL normal Value Inter preta tion ----- ----- ----- ---- < 20.0 Antib lisa not detec saba > or = 20.0 Antib lisa detec saba Not Available [facility] [address] [place], [address], 02/20/2024 04:51:35 02/18/20 24 02/20/2024 ANTIC ARDIO LIPIN ABS anticardioli pin, IgM 2.9 mpl-U /mL normal Value Inter preta tion ----- ----- ----- ---- < 20.0 Antib lisa not detec saba > or = 20.0 Antib lisa detec saba The antip hosph olipi d antib lisa syndr ome (APS) is a clini chris-p athol ogic corre latio n that inclu mariana a clini chris event (e.g. arter ial or venou s throm bosis , pregn cristine morbi dity) and persi stent posit cherrie antip hosph olipi d antib odies (IgM, IgG Cardi olipi n or b2GPI antib odies great er than the 99th perce ntile ; or a lupus antic oagul ant). Inter natio nal conse nsus guide lines for APS sugge st waiti ng at least 12 weeks befor e retes ting to confi rm antib lisa persi stenc e. The Syste darshan Lupus Inter natio nal Colla borat ing Clini cs immun ologi chris class ifica tion crite stephanie for syste darshan lupus eryth emato praveena (SLE) inclu de testi ng for isoty pe IgA, which has yet to be incor porat ed into APS crite stephanie. Low level antip hosph olipi d antib odies may somet imes be detec saba in the setti ng of infec tion, drug thera py or aging . For addit ional infor boby hernandez e refer to http: //[facility] n.que stdia gnost ics.c om/fa q/FAQ 109 (This link is being provi ded for infor matio nal/ educa nevaeh l purpo ses only. ) Not Available [facility] [address] [place] [address], [address], 02/20/2024 04:51:35 02/18/2002/20/2024 JENNA W/ REFLE X JENNA screen POSITI VE negati ve abnormal JENNA IFA is a first line scree n for detec ting the prese nce of up to appro ximat oral 150 autoa ntibo dies in vario us autoi mmune disea ses. A posit cherrie JENNA IFA resul t is sugge stive of autoi mmune disea se and refle xes to titer and nelli rn. Furth er labor atory testi ng may be consi dered if clini mk indic ated. For addit ional infor boby hernandez e refer to http: //[facility].Que stDia gnost ics.c om/fa q/FAQ 177 (This link is being provi ded for infor matio nal/ educa nevaeh l purpo ses only. ) Not Available [facility] [address] [place] [address], [phone], 02/21/2024 08:39:25 02/18/20 24 02/20/2024 JENNA W/ REFLE X JENNA titer 1:1280 titer high Refer ence Range <1:40 Negat cherrie 1:40- 1:80 Low Antib lisa Level >1:80 [place] saba Antib lisa Level Not Available [facility] [address] [place] [address], [address], 02/21/2024 08:39:25 02/18/20 24 02/20/2024 JENNA W/ REFLE X JENNA pattern SEE BELOW abnormal Nucle ar, Centr omere Centr omere patte rn is assoc iated with limit ed cutan eous syste darshan scler osis, CREST (Calc inosi s, Katharina ud's, Esoph ageal dysmo tilit y, Scler odact yly, Telan giect nora) , prima ry bilia ry chola ngiti s (PBC) , and other autoi mmune disea ses. AC-3: Centr omere Inter natio nal Conse nsus on JENNA Patte rns (http s://d oi.or g/10. 1515/ ccl- 2017- 0052) Not Available [facility] [address] [place] [address], [phone], 02/21/2024 08:39:25 02/18/20 24 02/21/2024 JENNA REFLE X COMME NT JENNA reflex comment see below normal REFLE X TESTI NG IN PROGR ESS INCLU MARIANA: Anti- DNA (ds) Ab, SM/RN P Abs, SS-A/ SS-B Abs, and Scler oderm a Ab Testi ng could take up to 7 days to compl ete. Not Available [facility] [address] [place], [address], 02/21/2024 08:39:28 02/18/20 24 02/21/2024 C3 C3 153 mg/dL 82-185 normal Not Available [facility] [address] [place] [address], [phone], 02/21/2024 16:04:25 02/18/20 24 02/21/2024 C4 C4 19 mg/dL 15-53 normal Not Available [facility] [address] [place] [address], [address], 02/21/2024 16:04:28 02/18/20 24 02/22/2024 JENNA REFLE X TESTI NG sm antibody <1.0 NEG ai <1.0 neg normal Not Available [facility] [address] [place] [address], [phone], 02/22/2024 14:23:55 02/18/20 24 02/22/2024 JENNA REFLE X TESTI NG 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 Ab <1.0 NEG ai <1.0 neg normal Not Available [facility] [address] [place] [address], [address], 02/22/2024 14:23:55 02/18/20 24 02/22/2024 JENNA REFLE X TESTI NG ss-A Ab <1.0 NEG ai <1.0 neg normal Not Available [facility] [address] [place] [address], [address], 02/22/2024 14:23:55 02/18/20 24 02/22/2024 JENNA REFLE X TESTI NG ss-B Ab <1.0 NEG ai <1.0 neg normal Not Available [facility] [address] [place] [address], [phone], 02/22/2024 14:23:55 02/18/20 24 02/22/2024 JENNA REFLE X TESTI NG scleroderma Ab <1.0 NEG ai <1.0 neg normal Not Available [facility] [address] [place] [address], [address], 02/22/2024 14:23:55 02/18/20 24 02/22/2024 LUPUS ANTIC OAGUL ANT EVALU ATION lupus anticoagulan t SEE NOTE not detect ed normal A Lupus Antic oagul ant is not detec saba. Commo n cause s for a prolo nged scree n and negat cherrie confi rmato ry test inclu de facto r defic ienci es or antic oagul ant thera py. For more infor mariposa byers on this test, go to: http: //[facility] stdia gnost ics.c om/fa q/FAQ 01v2 (This link is being provi ded for infor [place] dent/ educa nevaeh l purpo ses only. ) ----- ----- ----- ----- ----- ----- ----- ----- ----- ----- ----- - This inter preta tion is based on the follo wing test resul ts: Not Available [facility] [address] [place] [address], [phone], 02/22/2024 22:55:52 02/18/20 24 02/22/2024 LUPUS ANTIC OAGUL ANT EVALU ATION PTT (lac) screen 71 sec < or = 40 high Not Available [facility] [address] [place] [address], [phone], 02/22/2024 22:55:52 02/18/20 24 02/22/2024 LUPUS ANTIC OAGUL ANT EVALU ATION drvvt screen 70 sec < or = 45 high Not Available [facility] [address] [place] [address], [phone], 02/22/2024 22:55:52 02/18/20 24 02/22/2024 LUPUS ANTIC OAGUL ANT EVALU ATION hexagonal phase confirmation NEGATI VE negati ve normal Not Available [facility] [address] [place] [address], [phone], 02/22/2024 22:55:52 02/18/20 24 02/22/2024 LUPUS ANTIC OAGUL ANT EVALU ATION drvvt confirmation NEGATI VE negati ve normal Not Available [facility] [address] [place] [address], [phone], 02/22/2024 22:55:52 02/18/20 24 02/23/2024 ANTI- CCP anti-ccp <16 units normal Refer ence Range Negat cherrie: <20 Weak Posit cherrie: 20-39 Moder ate Posit cherrie: 40-59 Stron g Posit cherrie: >59 Not Available [facility] [address] [place] [address], [address], 02/23/2024 16:08:06 02/18/20 24 02/22/2024 JENNA REFLE X TESTI NG sm antibody <1.0 NEG ai <1.0 neg normal Not Available [facility] [address] [place] [address], [address], 02/27/2024 02:05:27 02/18/20 24 02/22/2024 JENNA REFLE X TESTI NG 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 Ab <1.0 NEG ai <1.0 neg normal Not Available [facility] [address] [place] [address], [phone], 02/27/2024 02:05:27 02/18/20 24 02/22/2024 JENNA REFLE X TESTI NG ss-A Ab <1.0 NEG ai <1.0 neg normal Not Available [facility] [address] [place] [address], [phone], 02/27/2024 02:05:27 02/18/20 24 02/22/2024 JENNA REFLE X TESTI NG ss-B Ab <1.0 NEG ai <1.0 neg normal Not Available [facility] [address] [place] [address], [phone], 02/27/2024 02:05:27 02/18/20 24 02/22/2024 JENNA REFLE X TESTI NG scleroderma Ab <1.0 NEG ai <1.0 neg normal Not Available [facility] [address] [place] [address], [address], 02/27/2024 02:05:27 02/18/20 24 02/27/2024 JENNA REFLE X TESTI NG DNA (ds) Ab NEGATI VE negati ve normal Not Available [facility] [address] [facility], [place], [address], 02/27/2024 02:05:27 02/18/20 24 02/18/2024 XR, lumbo sacra l spine , 2 or 3 view [facility] [address] [place] [address] Patien t Name: ZAHEER Lubin t : [phone] Patien t Orderi ng Provid er: DEBORAH MAC HARVEY EXAM DATE: 2023 EXAM: XR LUMBAR AP/LAT CLINIC AL INFORM ATION: Back pain. IMAGES PROVID ED: AP, latera l and coned down views of the lumbar spine. COMPAR PREETI: None. FINDIN GS: Curvat ure, alignm ent, verteb ral body height s and disc spaces are normal . No radiog raphic eviden ce of injury is noted. Aortoi liac stent graft noted. IMPRES AMY: Normal radiog raphs of the lumbar spine. Interp reted By: Alberto Lal MD Electr onical ly Signed By: Alberto Lal MD on 2023 1:46 PM [facility] [address], [place], [address], 02/23/2024 19:19:00 02/18/20 24 02/18/2024 XR, knee, 1 or 2 view [facility] [address] [facility] [place] [address] Patien t Name: ZAHEER Lubin t : [phone] Patien t Orderi ng Provid er: DEBORAH MAC HARVEY EXAM DATE: 2023 EXAM: XR SHEKHAR KNEES 1 OR 2 VIEWS HISTOR Y: Bilate ral knee pain and multip le falls. COMPAR PREETI: None. FINDIN GS: The bones of the left and right knee are normal in alignm ent. There is no eviden ce of fractu re. There are minima l degene rative change s. IMPRES AMY: 1. There are minima l degene rative change s in the left and right knee. Interp reted By: Cristy olivarez MD Electr onical ly Signed By: Cristy olivarez MD on 2023 2:01 PM [facility] [address], [address], 02/23/2024 19:19:00 02/18/20 24 02/18/2024 XR, ankle , 2 view [facility] [address] [place] [address] Patien t Name: ZAHEER LU PIEDAD Amee rosa : [phone] Patiling t Orderi ng Provid er: DEBORAH MAC HARVEY EXAM DATE: 2023 EXAM: XR SHEKHAR ANKLES , AP/LAT COMPAR PREETI: None. HISTOR Y: Bilate ral ankle pain and prior fall. FINDIN GS: The bones of the left and right ankle are normal in alignm ent. There is no displa lyn fractu re. There is minima l degene rative change . There is soft tissue swelli ng of the ankles . There are promin ent vascul ar calcif icatio ns. IMPRES AMY: 1. There is soft tissue swelli ng of the left and right ankle, but there is no eviden ce of fractu re. Interp reted By: Cristy olivarez MD Electr onical ly Signed By: Cristy olivarez MD on 2023 2:02 PM [facility] [id number] [place], [address], 02/23/2024 19:19:01 Result Notes None recorded. Procedures Surgical History Date Name Laterality Status Provider Name and Address Organization Details Recorded Time biopsy of lung completed [facility] 02/18/2024 10:12:19 insertion of stent into vein completed [facility] 02/18/2024 10:12:32 release of trigger finger completed [facility] 02/18/2024 10:12:52 phlebectomy of lower limb vein completed [facility] 02/18/2024 10:13:18 Imaging Results Imaging Date Name Status LastModified by [email or web address] Details LastModified Time 02/18/2024 XR, lumbosacral spine, 2 or 3 view completed [facility] [place] [address] [place], [address], 02/23/2024 19:19:00 02/18/2024 XR, knee, 1 or 2 view completed [facility] [place] [address] [place], [address], 02/23/2024 19:19:00 02/18/2024 XR, ankle, 2 view completed [facility] [address], [address], 02/23/2024 19:19:01 Procedure Notes None recorded. Medical Equipment None Reported. Allergies No known drug allergies Medications Name Sig Start Date Stop Date Status Note LastModified by Organization Details LastModified Time colistin (colistimet hate sodium) 150 mg solution for injection MIX CONTENTS OF 2 VIALS WITH DILUENT. APPLY TO AFFECTED AREAS. PERFORM TWICE DAILY. 05/20 completed Not Available Not Available Not Available clindamycin HCl 300 mg capsule TAKE ONE CAPSULE BY MOUTH THREE TIMES DAILY FOR 7 DAYS -- FINISH ALL MEDICINE -- 05/20 completed Not Available Not Available Not Available atorvastati n 10 mg tablet TAKE ONE TABLET BY MOUTH EVERY DAY active Not Available Not Available No t Available azithromyci n 250 mg tablet TAKE 2 TABLETS BY MOUTH ON DAY 1, THEN TAKE 1 TABLET DAILY ON DAYS 2-5 -- FINISH ALL MEDICINE -- 02/06 completed Not Available Not Available Not Available hydrocodone 5 mg-acetamin ophen 325 mg tablet TAKE TWO TABLETS BY MOUTH TWICE DAILY NEEDED MAY CAUSE DROWSINES S 07/12 completed Not Available Not Available Not Available prednisone 5 mg tablet TAKE THREE TABLETS BY MOUTH DAILY FOR 3 DAYS, THEN TAKE TWO TABLETS DAILY FOR 2 DAYS, THEN TAKE ONE TABLET DAILY FOR 3 DAYS -- FINISH ALL MEDICINE -- --TAKE WITH FOOD-- 08/23 completed Not Available Not Available Not Available leflunomide 10 mg tablet TAKE ONE TABLET BY MOUTH EVERY DAY 10/20 completed Not Available Not Available Not Available triamcinolo ne acetonide 0.5 % topical ointment APPLY TOPICALLY TO THE AFFECTED AREA(S) TWICE DAILY FOR 10 DAYS 02/06 completed Not Available Not Available Not Available clopidogrel 75 mg tablet TAKE ONE TABLET BY MOUTH EVERY DAY active Not Available Not Available No t Available hydrocodone 10 mg-acetamin ophen 325 mg tablet TAKE ONE TABLET BY MOUTH TWICE DAILY NEEDED FOR pain MAY CAUSE DROWSINES S active Not Available Not Available No t Available leflunomide 20 mg tablet TAKE ONE TABLET BY MOUTH EVERY DAY 2024 active Not Available Not Available Not Avai lable tramadol 50 mg tablet TAKE ONE TABLET BY MOUTH EVERY 6 HOURS NEEDED FOR PAIN MAY CAUSE DROWSINES S 05/20 completed Not Available Not Available Not Available pentoxifyll ine ER 400 mg tablet,exte nded release TAKE ONE TABLET BY MOUTH THREE TIMES DAILY --TAKE WITH FOOD-- 05/14 completed Not Available Not Available Not Available warfarin 3 mg tablet TAKE THREE TABLETS BY MOUTH EVERY DAY active Not Available Not Available No t Available ciclopirox 8 % topical solution APPLY TOPICALLY TO THE AFFECTED AREA(S) every DAY FOR 4 WEEKS 05/14 completed Not Available Not Available Not Available terbinafine HCl 250 mg tablet TAKE ONE TABLET BY MOUTH EVERY DAY FOR 10 consecuti ve DAYS each MONTH active Not Available Not Available No t Available warfarin 6 mg tablet TAKE ONE TABLET BY MOUTH EVERY DAY active Not Available Not Available No t Available prednisolon e acetate 1 % eye drops,suspe nsion INSTILL ONE DROP into affected eye(s) TWICE DAILY 12/13 completed Not Available Not Available Not Available methocarbam ol 750 mg tablet TAKE ONE TABLET BY MOUTH EVERY DAY MAY CAUSE DROWSINES S 05/20 completed Not Available Not Available Not Available triamcinolo ne acetonide 40 mg/mL suspension for injection Take 40 mg by injection route. 09/21 completed Not Available Not Available Not Available oseltamivir 75 mg capsule TAKE 1 CAPSULE BY MOUTH ONCE DAILY FOR 10 DAYS 05/14 completed Not Available Not Available Not Available clotrimazol e-betametha sone 1 %-0.05 % topical cream APPLY TOPICALLY TO THE AFFECTED AREA(S) TWICE DAILY TO lesion -- FOR EXTERNAL USE ONLY-- 09/21 completed Not Available Not Available Not Available warfarin 5 mg tablet take BY MOUTH DIRECTED PER inr monitorin g NEEDED active Not Available Not Available No t Available losartan 25 mg tablet TAKE ONE TABLET BY MOUTH EVERY DAY active Not Available Not Available No t Available gabapentin 300 mg capsule TAKE ONE CAPSULE BY MOUTH THREE TIMES DAILY MAY CAUSE DROWSINES S active Not Available Not Available No t Available mupirocin 2 % topical ointment APPLY TOPICALLY TO THE AFFECTED AREA(S) UP TO TWICE DAILY FOR 3 WEEKS 02/06 completed Not Available Not Available Not Available ergocalcife rol (vitamin D2) 1,250 mcg (50,000 unit) capsule TAKE ONE CAPSULE BY MOUTH ONCE EVERY 2 WEEKS active Not Available Not Available No t Available dexamethaso ne sodium phosphate 4 mg/mL injection solution Inject 4 mg by intramusc ular route. 09/21 completed Not Available Not Available Not Available warfarin 1 mg tablet TAKE ONE TABLET BY MOUTH EVERY DAY DIRECTED active Not Available Not Available No t Available hydroxychlo roquine 200 mg tablet TAKE TWO TABLETS BY MOUTH ONCE DAILY 2024 active Not Available Not Available Not Avai lable levofloxaci n 500 mg tablet TAKE ONE TABLET BY MOUTH ONCE DAILY FOR 10 DAYS -- FINISH ALL MEDICINE -- 02/06 completed Not Available Not Available Not Available methylpredn isolone 4 mg tablets in a dose pack TAKE ACCORDING TO PACKAGE INSTRUCTI ONS --TAKE WITH FOOD-- -- FINISH ALL MEDICINE -- 02/06 completed Not Available Not Available Not Available albuterol sulfate HFA 90 mcg/actuati on aerosol inhaler INHALE 1 PUFF EVERY 4 HOURS NEEDED --SHAKE WELL BEFORE USE-- 05/20 completed Not Available Not Available Not Available ketoconazol e 2 % topical cream 02/06 completed Not Available Not Available Not Available amoxicillin 875 mg-potassiu m clavulanate 125 mg tablet TAKE ONE TABLET BY MOUTH EVERY TWELVE HOURS FOR 7 DAYS -- FINISH ALL MEDICINE -- 06/03 completed Not Available Not Available Not Available tobramycin 0.3 %-dexametha sone 0.1 % eye drops,suspe nsion instill 1 DROP IN EACH EYE FOUR TIMES DAILY FOR 7 DAYS 08/23 completed Not Available Not Available Not Available miconazole nit 0.25 %-zinc ox 15 %-petrolatu m 81.35 % topical ointment APPLY TOPICALLY ONCE DAILY DIRECTED 09/21 completed Not Available Not Available Not Available Mucus Relief ER 600 mg tablet, extended release TAKE ONE TABLET BY MOUTH EVERY TWELVE HOURS NEEDED 02/06 completed Not Available Not Available Not Available Horizant ER 600 mg tablet,exte nded release TAKE ONE TABLET BY MOUTH EVERY DAY AT approxima tely 500pm with food/even ing meal (FOR restless LEG syndrome) 05/14 completed Not Available Not Available Not Available Vitals Date Recorded Body weight Body mass index (BMI) Body height Respiratory rate Heart rate Oxygen saturation Oxygen saturation in Arterial blood by Pulse oximetry Systolic blood pressure Diastolic blood pressure Provider Name and Address Organization Details Last Updated DateTime 4 781383. 38 g 37.3 kg/m2 175.26 cm 14 /min 78 /min 98 % 98 % 120 mm[Hg] 88 mm[Hg] [facility] 4 10:15:08 Date Recorded Body height Body mass index (BMI) Body weight Respiratory rate Heart rate Oxygen saturation Oxygen saturation in Arterial blood by Pulse oximetry Systolic blood pressure Diastolic blood pressure Provider Name and Address Organization Details Last Updated DateTime 5 175.26 cm 36.9 kg/m2 887203. 09 g 14 /min 84 /min 98 % 98 % 126 mm[Hg] 88 mm[Hg] [facility] 5 13:38:20 Date Recorded Body height Body mass index (BMI) Body weight Heart rate Oxygen saturation Oxygen saturation in Arterial blood by Pulse oximetry Systolic blood pressure Diastolic blood pressure Provider Name and Address Organization Details Last Updated DateTime 5 175.26 cm 38 kg/m2 071523. 24 g 90 /min 97 % 97 % 124 mm[Hg] 80 mm[Hg] Tiffanie Roberto [facility] 5 12:05:52 Social History Question Answer Notes LastModified by Organizat ion Details LastModified Time Tobacco Smoking Status Current Every Day Smoker Mary Jane Gunn [facility] 02/18/2024 10:11:49 What Was The Date Of Your Most Recent Tobacco Screening? 04/19/2024 Information not available 04/19/2024 Sex: Unknown Functional Status Question Answer Note LastModified by Organizat ion Details LastModified Time Do you or have you ever used any other forms of tobacco or nicotine? Yes Information not available 02/18/2024 What is your level of alcohol consumption? None Information not available 02/18/2024 Do you or have you ever used smokeless tobacco? Currently chews tobacco Information not available 02/18/2024 Mental Status None recorded. Family History Nothing Reported. Medical History Condition Response Emphysema N COPD N Arthritis Y Acid Reflux (GERD) Y Rheumatoid Arthritis Y Bleeding Disorder Y Asthma N Diabetes N Heart Disease N Hypertension Y Immunizations Vaccine Type Date Status Note Provider Nam e and Address Organization Details Recorded Time MMR 6 completed Theodora Gracia [facility] 11/25/2023 12:26:10 Tdap 8 completed Theodoraabigail Gracia [facility] 11/25/2023 12:26:10 Td (adult) 2 completed Theodora [facility] 11/25/2023 12:26:10 Td (adult), 2 Lf tetanus toxoid, preservative free, adsorbed 3 completed Theodoraabigail Gracia [facility] 11/25/2023 12:26:10 Hep B, adolescent or pediatric 3 completed Theodoraabigail Gracia [facility] 11/25/2023 12:26:10 Hep B, adolescent or pediatric 3 completed Theodoraabigail Gracia [facility] 11/25/2023 12:26:10 Past Encounters Encounter ID Performer Location Encounter Start Date Encounter Closed Date Diagnosis/Indication Diagnosis SNOMED-CT Code Diagnosis ICD10 Code Diagnosis Note [id number] DEBORAH HAMMOND MD [facility] [id number] [place] [address] 02/18/2024 09:53:00 02/20/2024 04:20:11 Antiphospholipid syndrome [id number] D68.61 Several DVTs and PEs with resulting chronic venous insufficie ncy. Unclear if this is primary or secondary. Other rheumatolo gists have thought this is secondary as leflunomid e is not a treatment for APLS. - will get additional labs as below- he is on chronic warfarin therapy through PCP- he has seen a hematologi st at [facility], who has retired- request records from , Dr. Myers, and Dr. Young/[facility] Pain of mu ltiple joints [id number] M25.50 Due to PAD vs. PVD?? - he is on hydrocodon e and gabapentin 300 mg TID- XR of the lumbar spine- XR of the knees and ankles Long-term drug therapy [id number] Z79.899 - labs every 3 months on current medication s- yearly eye exams - We discussed side effects of leflunomid e including nausea, diarrhea, cytopenias , hepatitis, infection. We discussed that leflunomid e can cause serious defects and that a woman should not become while taking this medication or for6 months after taking this medication . We discussed the need to refrain from alcohol while taking this medication and to have regular laboratory monitoring while taking this medication .- We discussed the possible side effects of hydroxychl oroquine including headache, nausea, diarrhea, rare retinal pigmentati on, very rare neuromuscu lar toxicity. I recommende d eye exams every 6-12 months to monitor for retinal toxicity Fatigue [id number] R53.83 Systemic l upus erythematosus [id number] M32.9 Possible diagnosis? I did not appreciate synovitis, but his ankle swelling is difficult to discern due to his chronic venous insufficie ncy Recurrent falls [id number] 2 R29.6 - unclear etiology- related to PAD vs.PVD?- request records- X rays and labs as above [id number] DEBORAH HAMMOND MD [facility] [address] [place] [address] 04/19/2024 13:10:12 06/05/2024 04:36:27 Antiphospholipid syndrome [id number] D68.61 Several DVTs and PEs with resulting chronic venous insufficie ncy. Unclear if this is primary or secondary. Other rheumatolo gists have thought this is secondary as leflunomid e is not a treatment for APLS. + JENNA 1:1280 in a centromere pattern, negative lupus anticoagul ant, - anticardio lipin, - beta 2 glycoprote in - will get additional labs as below- he is on chronic warfarin therapy through PCP- he has seen a hematologi st at [facility], who has retired- request records from , Dr. Myers, and Dr. Young/[facility] Systemic l upus erythematosus [id number] M32.9 + JENNA 1:1280 in a centromere pattern, negative lupus anticoagul ant, - anticardio lipin, - beta 2 glycoprote in I did not appreciate synovitis, but his ankle swelling is difficult to discern due to his chronic venous insufficie ncy - continue leflunomid e and hydroxychl oroquine for now- may try to wean off of leflunomid e to see if this is necessary Pain of mu ltiple joints [id number] M25.50 Due to PAD vs. PVD?? - he is on hydrocodon e and gabapentin 300 mg TID- XRs without significan t osteoarthr itis Long-term drug therapy [id number] Z79.899 - labs every 3 months on current medication s- yearly eye exams - We discussed side effects of leflunomid e including nausea, diarrhea, cytopenias , hepatitis, infection. We discussed that leflunomid e can cause serious defects and that a woman should not become while taking this medication or for6 months after taking this medication . We discussed the need to refrain from alcohol while taking this medication and to have regular laboratory monitoring while taking this medication .- We discussed the possible side effects of hydroxychl oroquine including headache, nausea, diarrhea, rare retinal pigmentati on, very rare neuromuscu lar toxicity. I recommende d eye exams every 6-12 months to monitor for retinal toxicity Fatigue [id number] R53.83 Recurrent falls [id number] 2 R29.6 - unclear etiology- related to PAD vs.PVD?- request records- X rays and labs as above [id number] DEBORAH HAMMOND MD RHEUMATOL OGY [address] [place] [address] 07/25/2024 11:46:45 07/31/2024 09:44:08 Antiphospholipid syndrome [id number] D68.61 Several DVTs and PEs with resulting chronic venous insufficie ncy. Unclear if this is primary or secondary. Other rheumatolo gists have thought this is secondary as leflunomid e is not a treatment for APLS. He does find lefluonomi de and hydroxychl oroquine helpful for his joint pain and I have not appreciate d synovitis while on this medication . + JENNA 1:1280 in a centromere pattern, negative lupus anticoagul ant, - anticardio lipin, - beta 2 glycoprote in - will get additional labs as below- he is on chronic warfarin therapy through PCP- he has seen a hematologi st at [facility], who has retired- request records from , Dr. Myers, and Dr. Young/[facility] Systemic l upus erythematosus [id number] M32.9 + JENNA 1:1280 in a centromere pattern, negative lupus anticoagul ant, - anticardio lipin, - beta 2 glycoprote in I did not appreciate synovitis, but his ankle swelling is difficult to discern due to his chronic venous insufficie ncy - continue leflunomid e and hydroxychl oroquine for now- may try to wean off of leflunomid e to see if this is necessary Pain of mu ltiple joints [id number] M25.50 Due to PAD vs. PVD?? - he is on hydrocodon e and gabapentin 300 mg TID- XRs without significan t osteoarthr itis Long-term drug therapy [id number] Z79.899 - labs every 3 months on current medication s- yearly eye exams - We discussed side effects of leflunomid e including nausea, diarrhea, cytopenias , hepatitis, infection. We discussed that leflunomid e can cause serious defects and that a woman should not become while taking this medication or for6 months after taking this medication . We discussed the need to refrain from alcohol while taking this medication and to have regular laboratory monitoring while taking this medication .- We discussed the possible side effects of hydroxychl oroquine including headache, nausea, diarrhea, rare retinal pigmentati on, very rare neuromuscu lar toxicity. I recommende d eye exams every 6-12 months to monitor for retinal toxicity Fatigue [id number] R53.83 Recurrent falls [id number] 2 R29.6 - unclear etiology- related to PAD vs.PVD? Peripheral venous insufficiency [id number] I87.2 I think a lot of his ongoing issues is related to his venous insufficie ncy. I think he needs to remain in contact with Dr. Myers, so will refer back Health Concerns Section Related Observation LastModified by Organization Crispin ls LastModified Time None Recorded Concern Status LastModified by Organization Details LastModified Time None Recorded Advance Directives Directive None Recorded Payers Insurance Date Sequence Insurance Name Policy Number Policy Gaspar Covered Member ID Gaspar Member ID Guarantor Name 07/31/2024 2 [employer]ET[employer] [facility] (MEDICAID HMO) Glen Robledo [id number] Glen Robledo 07/31/2024 1 R [id number] Maria Victoria Robledo [id number] Glen Robledo Notes Date Note Type Note Provider Name and Address Organization Details Recorded Time 02/18/2024 text/html Glen Robledo is a 33 yo man with past medical history of APLS, connective tissue disease, HTN, HLD, PAD, chronic pain, tinea pedis, who presents to establish care. His is present with him at the appointment and provides a lot of the history. They state that his first primary care coordinator was at when admitted in 2012.An outside hospital thought he had pneumonia, but instead he had 8 PEs. He was hospitalized for 3 weeks and was on a green filter and was treated with high doses of steroids. They state he was diagnosed with systemic scleroderma and APLS. Started seeing Dr. Tracy who was part of the [facility]. She then left, so he established with Dr. Young at [facility].Dr. Young did not think he had scleroderma and did a bunch of blood work. He was put on leflunomide. He has been on plaquenil since 2013. 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 They state he was terminated when he was in the hospital and that company is now no more. He has not been working for 3 years. Prior to that, he did work for [employer], but he has issues with recurrent falls, so he has been let go from there as well. He is out on assisted disability. They are trying to apply for state disability.He falls constantly. Legs just give out.Pain all the time. Lose balance.He does walk with a cane on really bad days.Terrible circulation problems since the DVTs and blood clots.Dr. Camara at [facility]. Does not think he is a candidate for surgery. Has been following with Dr. Myers in vascular. Put in 3 stents in the right groin. Thinks it has made it worse.had a leg ulcer which is scarred on the left leg. Failed Xarelto and Eliquis.He is on plaquenil and leflunomide Pes planus and as bad osteoarthritis in the feet. Following with a chute worker. He gets steroid injections in the ankles every 3 months.Fingers get stiff. Hips will hurt.Fatigue. Feet and legs will get swollen. + raynaud's, rash on feet and ankles and sees dermatology for tinea, no rash in the sun. Has three kids. DEBORAH HAMMOND MD [address] [place] [address], [phone], [facility] 02/19/2024 13:06:09 04/19/2024 text/html Glen Robledo is a 33 yo man with past medical history of APLS, connective tissue disease, HTN, HLD, PAD, chronic pain, tinea pedis, who presents to establish care. They state that his first primary care coordinator was at when admitted in 2012.An outside hospital thought he had pneumonia, but instead he had 8 PEs. He was hospitalized for 3 weeks and was on a green filter and was treated with high doses of steroids. They state he was diagnosed with systemic scleroderma and APLS. Started seeing Dr. Tracy who was part of the [facility]. She then left, so he established with Dr. Young at [facility].Dr. Young did not think he had scleroderma and did a bunch of blood work. He was put on leflunomide. He has been on plaquenil since 2012. 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 They state he was terminated when he was in the hospital and that company is now no more. He has not been working for 3 years. Prior to that, he did work for [employer], but he has issues with recurrent falls, so he has been let go from there as well. He is out on assisted disability. They are trying to apply for state disability.He falls constantly. Legs just give out.Pain all the time. Lose balance.He does walk with a cane on really bad days.Terrible circulation problems since the DVTs and blood clots.Dr. Camara at [facility]. Does not think he is a candidate for surgery. Has been following with Dr. Myers in vascular. Put in 3 stents in the right groin. Thinks it has made it worse.had a leg ulcer which is scarred on the left leg. Failed Xarelto and Eliquis.He is on plaquenil and leflunomide Pes planus and as bad osteoarthritis in the feet. Following with a chute worker. He gets steroid injections in the ankles every 3 months.Fingers get stiff. Hips will hurt.Fatigue. Feet and legs will get swollen. + raynaud's, rash on feet and ankles and sees dermatology for tinea, no rash in the sun. Has three kids. He states he has been about the same. No new issues. no major falls. He has not been hospitalized or sick in the interim. DEBORAH HAMMOND MD [address] [place] [address], [phone], [facility] 06/04/2024 16:50:22 07/25/2024 text/html Glen Robledo is a 33 yo man with past medical history of APLS, connective tissue disease, HTN, HLD, PAD, chronic pain, tinea pedis, who presents to establish care. They state that his first primary care coordinator was at when admitted in 2012.An outside hospital thought he had pneumonia, but instead he had 8 PEs. He was hospitalized for 3 weeks and was on a green filter and was treated with high doses of steroids. They state he was diagnosed with systemic scleroderma and APLS. Started seeing Dr. Tracy who was part of the [facility]. She then left, so he established with Dr. Young at [facility].Dr. Young did not think he had scleroderma and did a bunch of blood work. He was put on leflunomide. He has been on plaquenil since 2012. 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 They state he was terminated when he was in the hospital and that company is now no more. He has not been working for 3 years. Prior to that, he did work for [employer], but he has issues with recurrent falls, so he has been let go from there as well. 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 They are trying to apply for state disability.He falls constantly. Legs just give out.Pain all the time. Lose balance.He does walk with a cane on really bad days.Terrible circulation problems since the DVTs and blood clots.Dr. Camara at [facility]. Does not think he is a candidate for surgery. Has been following with Dr. Myers in vascular. Put in 3 stents in the right groin. Thinks it has made it worse.had a leg ulcer which is scarred on the left leg. Failed Xarelto and Eliquis.He is on plaquenil and leflunomide Pes planus and as bad osteoarthritis in the feet. Following with a chute worker. He gets steroid injections in the ankles every 3 months.Fingers get stiff. Hips will hurt.Fatigue. Feet and legs will get swollen. + raynaud's, rash on feet and ankles and sees dermatology for tinea, no rash in the sun. Has three kids. He states he has been about the same. No new issues. He had one major fall and had to go to the ER because he hit his head. He has not been hospitalized or sick in the interim. DEBORAH HAMMOND MD [address] [place], [phone], [facility] 07/27/2024 11:08:34
--- OUTSIDE RECORDS SUMMARY | 2024-08-15 12:52 | XMS_ITS | Continuity of Care Document ---
Author Organization [facility] Address [address] [address] Care Team Providers Care Merchandise Distributor Name Role Phone WEN GROVE Primary Care Provider [phone] Assessment No assessment recorded. Plan of Treatment Reminders Order Date Submit Date Provider Last Modified By Organization Details Last Modified Time Details Appointments OV EST 30 2024 11:00A Terell GROVE NP Not available Not available Not available Lab vitamin D, 25-hydrox y, total, serum [address] (Laboratory), [address] [place] [place], [address], 08/09/2024 07:14:46 PT/INR 2024 025 [facility] (Laboratory), [address] [place], [address], 08/02/2024 17:26:32 CBC w/ auto diff 2024 025 [facility] (Laboratory), [address] [place], [address], 08/02/2024 17:18:12 hemoglobi n A1c + average glucose, QN, blood [address] (Laboratory), [address] [place], [address], 08/09/2024 07:14:46 CMP, serum or plasma 2024 025 [facility] (Laboratory), [address] , [place], [address], 08/02/2024 17:50:05 Referral None recorded. Procedures None recorded. Surgeries None recorded. Imaging None recorded. Medication Orders None recorded. Patient TargetsNo targets recorded. Patient InstructionsNo instructions recorded. Reason for Referral None Reported. Problems Name Problem SNOMED Code Status Onset Date Resolution Date Notes Provider Name and Address Organization Details Recorded Time Scleroderma Active 2024 WEN GROVE NP [address], [place], [address], [place] [facility] - [place] & [place] 5 14:33:23 Lupus anticoagulant disorder 66310179 Active 2021 Mary kay, [place] [facility] [place] & [place] 2 15:47:19 Antiphospholip id syndrome 73374287 Active 2021 Mary Baldwin null, [place] 2 15:48:56 Deep venous thrombosis 049130030 Active 2021 Mary Baldwin null[place] 2 15:49:12 Pulmonary embolism 14447221 Active 2021 Mary Baldwin null[place] 2 15:49:20 Chronic pain 55054536 Active 2021 Mary Baldwin null[place] 2 15:49:27 Falls 768885562 Active 2021 Marylady Baldwin null[place] & [place] 2 15:55:23 Problem Notes None recorded. Procedures Surgical History Date Name Laterality Status Provider Name and Address Organization Details Recorded Time 2 venography completed WEN GROVE NP [address], [place], [address], [place] [facility] [place] & [place] 02/11/2022 17:09:14 2 insertion of stent in inferior vena cava completed WEN GROVE NP [address] [facility], [place], [address], [facility] & [place] 02/11/2022 17:09:42 2 insertion of stent into iliac vein completed WEN GROVE NP [address] [facility], [place], [address], [facility] & [place] 02/11/2022 17:10:18 3 biopsy of lung completed Antoinette Escalante [facility] & [place] 10/28/2023 12:37:32 Imaging Results None recorded. Procedure Notes None recorded. Medical Equipment None Reported. Allergies No known drug allergies Medications Name Sig Start Date Stop Date Status Note LastModified by Organization Details LastModified Time spray kit 10ml USE 10 ML FOR MEDICATIO N ADMINISTR ATION WITH SPRAY BOTTLE #2 30ML SPRAY BOTTLES, #1 FUNNEL, SALINE 5ML VIALS #600ML 05/20 completed Not Available Not Available Not Available clindamycin /mupirocin/ itraconazol e 150/20/50mg topical capsule [38341] MIX THE CONTENTS OF 1 CAPSULE WITH DILUENT. APPLY TO AFFECTED AREAS. PERFORM TWICE DAILY. 03/19 completed Not Available Not Available Not Available colistin (colistimet hate sodium) 150 mg solution [...] TABLET BY MOUTH TWICE DAILY NEEDED FOR PAIN MAY CAUSE DROWSINES S 2024 active Not Available Not Available Not Avai lable leflunomide 20 mg tablet TAKE ONE TABLET BY MOUTH EVERY DAY active Not Available Not Available No t Available tramadol 50 mg tablet TAKE ONE TABLET [...] FOR 10 consecuti ve DAYS each MONTH 06/05 completed Not Available Not Available Not Available warfarin 6 mg tablet TAKE ONE [...] injection Take 40 mg by injection route. 09/214 completed Not Available Not Available Not Available [...] Not Available Not Available Not Avai lable gabapentin 300 mg capsule TAKE ONE CAPSULE [...] mg tablet TAKE TWO TABLETS BY MOUTH EVERY DAY active Not Available Not Available No t Available levofloxaci n 500 mg tablet TAKE ONE TABLET BY MOUTH ONCE DAILY FOR 10 DAYS -- FINISH ALL MEDICINE -- 02/06 completed Not Available Not Available Not Available methylpredn isolone 4 mg tablets in a dose pack TAKE ACCORDING TO PACKAGE INSTRUCTI ONS --TAKE WITH FOOD-- -- FINISH ALL MEDICINE -- 08/02 completed Not Available Not Available Not Available [...] Available Not Available Vitals Date Recorded Body height Body mass index (BMI) Body weight Body temperature Oxygen saturation Oxygen saturation in Arterial blood by Pulse oximetry Heart rate Systolic blood pressure Diastolic blood pressure Provider Name and Address Organization Details Last Updated DateTime 5 175.26 cm 37.2 kg/m2 931017. 28 g 97.9 [degF] 97 % 97 % 85 /min 131 mm[Hg] 94 mm[Hg] Benny Hutneida byers [place] - [facility] & [place] 5 12:42:04 Social History Question Answer Notes LastModified by Organizat ion Details LastModified Time Tobacco Smoking Status Never Smoker Dorie Martínez eliza, [place] - [facility] & [place] 02/06/2022 11:32:31 Do You Have An Advance Directive? No Information n ot available 10/28/2022 Do You Wear A Helmet When Biking? Yes [email or web address] Information not available 06/05/2024 Are You Blind Or Do You Have Difficulty Seeing? No Information n ot available 10/28/2022 What Is Your Level Of Caffeine Consumption? Occasional [email or web address] Information not available 05/14/2023 In The 14 Days Before Symptom Onset, Have You Had Close Contact With A Laboratory-confirm ed COVID-19 While That Case Was Ill? No [email or web address] Information n ot available 06/05/2024 In The 14 Days Before Symptom Onset, Have You Had Close Contact With A Person Who Is Under Investigation For COVID-19 While That Person Was Ill? No [email or web address] Information not available 06/05/2024 Have You Been To An Area Known To Be High Risk For COVID-19? No [email or web address] Information not available 06/05/2024 Are You Deaf Or Do You Have Serious Difficulty Hearing? No [email or web address] Information not available 06/05/2024 What Type Of Diet Are You Following? REGULAR [email or web address] Information n ot available 06/05/2024 Have You Processed Blood Or Body Fluids From An Ebola Virus Disease Patient Without Appropriate PPE? No [email or web address] Information not available 06/05/2024 Do You Reside In Or Have You Traveled To An Area Where Ebola Virus Transmission Is Active? No [email or web address] Information not available 06/05/2024 Have There Been Any Changes To Your Family Or Social Situation? No [email or web address] Information no t available 06/05/2024 What Is The Fluoride Status Of Your Home? Unknown Information not available 06/05/2024 Are There Any Guns Present In Your Home? No Information not available 06/05/2024 Have You Recently Or Are You Planning To Travel To An Area With Zika Virus? No [email or web address] Information not available 06/05/2024 Do You Use Insect Repellent Routinely? Yes [email or web address] Information not available 06/05/2024 Do You Feel Safe At Home? Yes [email or web address] Information not available 06/05/2024 Do You Have A Medical Power Of Jr. Java Developer? No Information not available 06/05/2024 What Was The Date Of Your Most Recent Tobacco Screening? 08/02/2024 [email or web address] Information not available 08/02/2024 Do You Have Any Pets? No [email or web address] Information not available 06/05/2024 Do You Use Your Seat Belt Or Car Seat Routinely? Yes [email or web address] Information not available 06/05/2024 Do You Have Smoke And Carbon Monoxide Detectors In Your Home? Yes [email or web address] Information not available 06/05/2024 Are You Passively Exposed To Smoke? No Information no t available 10/28/2022 Do You Use Sunscreen Routinely? Yes [email or web address] Information not available 06/05/2024 Has Tobacco Cessation Counseling Been Provided? Yes [email or web address] Information not available 06/05/2024 On What Date Was Tobacco Cessation Counseling Provided? 08/02/2024 [email or web address] Information not available 08/02/2024 Do You Have Difficulty Walking Or Climbing Stairs? No [email or web address] Information not available 06/05/2024 Are You Currently In School? No [email or web address] Information not available 06/05/2024 Sex: Unknown Functional Status Question Answer Note LastModified by Organizat ion Details LastModified Time Do you use any illicit or recreational drugs? No Information not available 03/19/2022 Do you or have you ever used any other forms of tobacco or nicotine? No [email or web address] Information not available 05/14/2023 What is your level of alcohol consumption? None Information not available 03/19/2022 Are you currently employed? Yes Information not available 06/05/2024 Do you have transportation difficulties? No [email or web address] Information not available 06/05/2024 Are you able to walk? YESWOREST [email or web address] Information not available 06/05/2024 Do you have difficulty doing errands alone? No [email or web address] Information not available 06/05/2024 Are you able to care for yourself? Yes [email or web address] Information n ot available 06/05/2024 Do you have difficulty dressing or bathing? No [email or web address] Information not available 06/05/2024 What is your exercise level? Occasional Information not available 10/28/2022 Mental Status Question Answer Note LastModified by Organizat ion Details LastModified Time Do you feel stressed (tense, restless, nervous, or anxious, or unable to sleep at night)? [id number] Information not available 10/28/2022 Do you have difficulty concentrating, remembering or making decisions? No Information no t available 06/05/2024 Family History Relationship Description Onset Age of this Age Resolved Age Notes LastModified by Organization Details LastModified Time Mother Essential hypertension [email or web address] Not available 11/ 01/2022 11:32:23 Father Essential hypertension [email or web address] Not available 01/2022 11:32:23 Unspecified Relation Diabetes mellitus [email or web address] Not available 2023 12:38:30 Medical History Condition Response Autoimmune disease Y Obesity Y Other Y Lupus Y Clotting Disorder Y High Cholesterol Y Rheumatoid Arthritis Y Immunizations Vaccine Type Date Status Note Provider Nam e and Address Organization Details Recorded Time MMR 6 completed Mary kay, [place] & [place] 03/19/2022 15:45:22 Td (adult) 2 completed Mary Baldwin null[place] & [place] 03/19/2022 15:45:22 Td (adult), 2 Lf tetanus toxoid, preservative free, adsorbed 3 completed Mary kay, [place] & [place] 03/19/2022 15:45:22 Tdap 8 completed Mary kay[place] & [place] 03/19/2022 15:45:22 Hep B, adolescent or pediatric 3 completed Mary Baldwin null[place] & [place] 03/19/2022 15:45:22 Hep B, adolescent or pediatric 3 completed Mary kay[place] 03/19/2022 15:45:22 Past Encounters Encounter ID Performer Location Encounter Start Date Encounter Closed Date Diagnosis/Indication Diagnosis SNOMED-CT Code Diagnosis ICD10 Code Diagnosis Note [id number] WEN GROVE NP [facility] [address] [address] 08/02/2024 12:36:02 08/03/2024 11:12:51 Antiphospholipid syndrome 83594746 D68.61 continue with anticoagul ation; high risk for recurrent thrombosis Diagnosed in teenage years, tried and failed Xarelto and Eliquis therapy, followed by Rheumatolo gy Chronic pain 37518415 G8 9.29 Patient presents for {{treatmen t follow up*}} of general chronic pain. Based on patient history, physical exam, and previous treatments , I recommend continuing current treatment regimen as pain is chronic, and likely to continue to get worse due to multiple comorbidit ies. moderate control of pain,limit ed ADLsKasper UTDrisk versus benefit of medication Lupus anti coagulant disorder 03872680 D68.62 continue follow-up with Rheumatolo gy Diabetes m ellitus screening 051362534 Z13.1 Long-term current use of anticoagulant 382697847 Z79.01 awaiting PT and INR recheck todaycurre ntly on warfarin 6 mg once daily Vitamin D deficiency 347 31363 E55.9 recheck today, taking supplement ation Essential hypertension 32015354 I10 educated on goal of less than 130/90advi sed low sodium diet, healthy lifestyle including exercise as ableER if any symptoms such as chest pain, shortness of breathcont inue losartan therapy Health Concerns Section Related Observation LastModified by Organization Detai ls LastModified Time None Recorded Concern Status LastModified by Organization Details LastModified Time None Recorded Payers Encounter Date Sequence Insurance Name Policy Number Policy Gaspar Covered Member ID Gaspar Member ID Guarantor Name 08/02/2024 1 [id number] Maria Victoria Robledo [id number] Glen Robledo 08/02/2024 2 [facility] (MEDICAID HMO) Glen Robledo [id number] Glen Robledo Notes Date Note Type Note Provider Name and Address Organization Details Recorded Time 08/02/2024 text/html 33-year-old male with multiple chronic illness who presents for chronic care follow-up. Current warfarin dosing is at 6.5 once daily. He feels like his blood counts may be to 10 due to bruising. He has had at least 2 falls since last office visit, was seen in the ER after 1 fall. Continues to have issues with bilateral ankles and being followed by Podiatry, awaiting MRIs. Continues to struggle with his legs getting weak and giving out on him. He does wear his rubber compression daily. He has had several appointments with rheumatology and continues to follow with them. Denies any chest pain or shortness of breath. WEN GROVE NP [address] [place] [address], [address], [facility] & [place] 08/02/2024 13:20:32
--- OUTSIDE RECORDS SUMMARY | 2024-08-15 12:53 | XMS_ITS | Continuity of Care Document ---
Author Organization [facility] Address [address] [place] [address] Care Team Providers Care Epic Trainer Name Role Phone WEN GROVE Primary Care Provider DEBORAH HAMMOND Human Resources Operations Specialist [phone] Assessment No assessment recorded. Plan of Treatment Reminders Order Date Submit Date Provider Last Modified By Organization Details Last Modified Time Details Appointments RHEUM RECHECK 2024 11:30A M DEBORAH HAMMOND MD Not available Not available Not available Lab CBC w/ auto diff 2024 025 [email or web address] [facility] (Lab), [address], [place], [address], 08/01/2024 08:12:44 CMP, serum or plasma 2024 025 [email or web address] [facility] (Lab), [address], [place], [address], 08/01/2024 08:12:44 ESR (erythro cyte sediment ation rate), blood 2024 025 [email or web address] [facility] (Lab), [address] [place], [address], 08/01/2024 08:12:44 C reactive protein, QN, serum or plasma 2024 025 [email or web address] [facility] (Lab), [address], [place], [address], 08/01/2024 08:12:45 CBC w/ auto diff [address] (Lab), [facility] [place] [address], [place], [address], 08/01/2024 08:12:44 CMP, serum or plasma [address] (Lab), [address] [place] [address] [address], [place], [address], 08/01/2024 08:12:44 ESR (erythro cyte sediment ation rate), blood [address] (Lab), [address] [place] [address] [address], [place], [address], 08/01/2024 08:12:44 C reactive protein, QN, serum or plasma [address] (Lab), [address] [place] [address] [address], [place], [address], 08/01/2024 08:12:44 Referral vascular surgeon referral 2024 025 [email or web address] Alfredo Myers MD, [address] [facility], [place], [address], 07/28/2024 15:27:55 Procedures None recorded . Surgeries None recorded . Imaging None recorded . Medication Orders hydroxyc hloroqui ne 200 mg tablet 2024 025 [facility], [address] [place] [address] [address] [place], [id number], 07/25/2024 12:49:45 leflunom nolberto 20 mg tablet 2024 025 [facility], [address] [place] [address] [address] [place], [id number], 07/25/2024 12:49:44 Patient TargetsNo targets recorded. Patient Instructions Encounter Date Encounter Id Patient Instructions Last Modified By Organization Details Last Modified Time 07/25/2024 [id number] medical record request* - Please send last labs done in April [email or web address] Not available 08/01/2024 08:14:09 Reason for Referral Vascular Surgeon Referral fo r Peripheral venous insufficiency Referring Physician: Deborah Hammond, Rheumatology, Encounter Date: 07/25/2024 Procedures Surgical History Date Name Laterality Status Provider Name and Address Organization Details Recorded Time biopsy of lung completed [facility] 02/18/2024 10:12:19 insertion of stent into vein completed [facility] 02/18/2024 10:12:32 release of trigger finger completed [facility] 02/18/2024 10:12:52 phlebectomy of lower limb vein completed [facility] 02/18/2024 10:13:18 Imaging Results None recorded. Procedure Notes None [...] Updated DateTime 5 175.26 cm 38 kg/m2 561129. 24 g 90 /min 97 % 97 % 124 mm[Hg] 80 mm[Hg] [facility] 12:05:52 Social History Question Answer Notes LastModified by [employer] Details LastModified Time Tobacco Smoking Status Current Every Day Smoker Mary Jane Gunn [facility] 02/18/2024 10:11:49 What Was The Date Of Your Most Recent Tobacco Screening? 04/19/2024 Information not available 04/19/2024 Sex: Unknown Functional Status Question Answer Note LastModified by [employer] Details LastModified Time Do you or have you ever used any other forms of tobacco or nicotine? Yes Information not available 02/18/2024 What is your level of alcohol consumption? None Information not available 02/18/2024 Do you or have you ever used smokeless tobacco? Currently chews tobacco Information not available 02/18/2024 Mental Status None recorded. Family History Nothing Reported. Medical History Condition Response Diabetes N Bleeding Disorder Y Arthritis Y Emphysema N Acid Reflux (GERD) Y Heart Disease N Rheumatoid Arthritis Y Hypertension Y COPD N Asthma N Immunizations Vaccine Type Date Status Note Provider Nam e and Address Organization Details Recorded Time MMR 6 completed Theodora Gracia [facility] 11/25/2023 12:26:10 Tdap 8 completed Theodora Gracia [facility] 11/25/2023 12:26:10 Td (adult) 2 completed Theodora Gracia [facility] 11/25/2023 12:26:10 Td (adult), 2 Lf tetanus toxoid, preservative free, adsorbed 3 completed Theodora Gracia [facility] 11/25/2023 12:26:10 Hep B, adolescent or pediatric 3 completed Theodoraabigail Gracia [facility] 11/25/2023 12:26:10 Hep B, adolescent or pediatric 3 completed Theodoraabigail Gracia [facility] 11/25/2023 12:26:10 Past Encounters Encounter ID Performer Location Encounter Start Date Encounter Closed Date Diagnosis/Indication Diagnosis SNOMED-CT Code Diagnosis ICD10 Code Diagnosis Note [id number] DEBORAH HAMMOND MD [facility] [address] [place] [address] 07/25/2024 11:46:45 07/31/2024 09:44:08 Antiphospholipid syndrome 75864072 D68.61 Several DVTs and PEs with resulting [...] he has seen a hematologi st at [facility], who has retired- request records from , Dr. Myers, and Dr. Young/[facility] upus erythematosus 23135205 M32.9 + JENNA 1:1280 in a centromere [...] is necessary Pain of mu ltiple joints 25300705 M25.50 Due to PAD vs. PVD?? - he is on hydrocodon e and gabapentin 300 mg TID- XRs without significan t osteoarthr itis Long-term drug therapy 406776998 Z79.899 - labs every 3 months on [...] months to monitor for retinal toxicity Fatigue 83627284 R53.83 Recurrent falls 58197947 2 R29.6 - unclear etiology- related to PAD vs.PVD? Peripheral venous insufficiency 11667285 I87.2 I think a lot of his [...] Member ID Gaspar Member ID Guarantor Name 07/25/2024 1 UMR [id number] Maria Victoria Robledo [id number] Glen Robledo 07/25/2024 2 [facility] (MEDICAID HMO) Glen Robledo [id number] Glen Robledo Notes Date Note Type Note Provider Name and Address Organization Details Recorded Time 07/25/2024 text/html Glen Robledo is a 33 yo man with past medical history of APLS, connective tissue disease, HTN, HLD, PAD, chronic pain, tinea pedis, who presents to establish care. 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 He was hospitalized for 3 weeks and was on a green filter and was treated with high doses of steroids. They state he was diagnosed with systemic scleroderma and APLS. Started seeing Dr. Tracy who was part of the [facility]. She then left, so he established with Dr. Yonug at [facility].Dr. Young did not think he had [...] Prior to that, he did work for [employer], but he has issues with recurrent falls, so he has been let go from there as well. 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 They are trying to apply for state disability.He falls constantly. Legs just give out.Pain all the time. Lose balance.He does walk with a cane on really bad days.Terrible circulation problems since the DVTs and blood clots.Dr. Camara at [facility]. Does not think he is a candidate for surgery. Has been following with Dr. Myers in vascular. Put in 3 stents in the right groin. Thinks it has made it worse.had a leg ulcer which is scarred on the left leg. Failed Xarelto and Eliquis.He is on plaquenil and leflunomide Pes planus and as bad osteoarthritis in the feet. Following with a esthetics instructor. He gets steroid injections in the ankles [...] in the interim. DEBORAH HAMMOND MD [address] [place], [address], [facility] 07/27/2024 11:08:34
--- OUTSIDE RECORDS SUMMARY | 2024-08-15 12:53 | XMS_ITS | Data Portability ---
Author Organization [facility] [employer] [facility] ADMIN Address [address] [place] [id number] Care Team Providers Care Body Trimmer Name Role Phone AMRIT GROVE Primary Care Provider Assessment No assessment recorded. Plan of Treatment Reminders Order Date Submit Date Provider Last Modified By Organization Details Last Modified Time Details Appointments OV EST 30 2024 11:00A M AMRIT GROVE NP Not available Not available Not available Lab vitamin D, 25-hydrox y, total, serum [address] (Laboratory), [address] [place], [address], 08/09/2024 07:14:46 PT/INR 2024 025 [facility] (Laboratory), [address] [place], [address], 08/02/2024 17:26:32 CBC w/ auto diff 2024 025 [facility] (Laboratory), [address] [place], [address], 08/02/2024 17:18:12 hemoglobi n A1c + average glucose, QN, blood [address] (Laboratory), [address] [place] [place], [address], 08/09/2024 07:14:46 CMP, serum or plasma 2024 025 [facility] (Laboratory), [address] [place], [address], 08/02/2024 17:50:05 PT/INR 2024 [facility] (Laboratory), [address] [place], [address], 06/05/2024 16:46:54 drug screen, urine [address] (Laboratory), [address] [place], [address], 06/12/2024 08:16:35 gabapenti n, quantitat kirk, urine 2024 [facility] (Laboratory), [address] [place], [address], 06/07/2024 22:08:04 vitamin D, 25-hydrox y, total, serum [address] (Laboratory), [address] [place], [address], 06/12/2024 08:16:35 CMP, serum or plasma 2024 025 [facility] (Laboratory), [address] [place], [address], 06/05/2024 17:25:09 CBC w/ auto diff 2024 025 [facility] (Laboratory), [address] [place], [address], 06/05/2024 16:36:58 PT/INR 2023 024 [facility] (Laboratory), [address] [place], [address], 01/21/2024 13:46:33 lipid panel, serum 2023 024 [facility], [address], [address], [place], [address], 11/23/2023 08:20:00 PT/INR 2023 024 [facility] (Laboratory), [address], [place], [address], 11/22/2023 13:28:12 CMP, serum or plasma 2023 024 [facility], [address], [address], [place], [address], 11/23/2023 08:20:00 CBC w/ auto diff 2023 024 [facility], [address], [address], [place], [address], 11/23/2023 08:19:59 TSH + free T4, serum 2023 024 [facility], [address], [address], [place], [address], 11/23/2023 08:19:58 PT/INR 2023 024 [facility], [address], [address], [place], [address], 09/22/2023 14:33:04 CMP, serum or plasma 2023 024 [facility], [address], [address], [place], [address], 09/22/2023 17:06:23 CBC w/ auto diff 2023 024 [facility], [address], [address], [place], [address], 09/22/2023 16:45:40 Referral rheumatol ogist referral 2023 024 zeus [email or web address] Deborah Hammond MD, [address] [place], [address], 12/24/2023 08:34:48 Procedures None recorded. Surgeries None recorded. Imaging None recorded. Medication Orders hydrocodo ne 10 mg-acetam inophen 325 mg tablet 2024 025 [facility], [address] [place] [address] [address] [place], [place], [id number], 06/06/2024 11:03:18 losartan 25 mg tablet 2024 025 [facility], [address] [place] [address] [address] [place], [place], [id number], 06/05/2024 14:44:38 gabapenti n 300 mg capsule 2024 025 [facility], [address] [place] [address] [address] [address] [place], [place], [id number], 07/19/2024 12:45:16 Patient TargetsNo targets recorded. Patient InstructionsNo instructions recorded. Reason for Referral Antenna Specialist Referral for Lupus anticoagulant disorder Referring Physician: Amrit Grove, Family Medicine, Encounter Date: 11/22/2023 Results Created Date Observation Date Name Description Value Unit Range Abnormal Flag Note LastModifiedBy Organization Detail LastModifiedTime 09/22/1909/22/2023 CBC AUTO W DIFF WBC 7.7 10 4.5-11 .5 Not Available [facility] (Lab Registration) [address] [place], [address], 09/22/2023 16:45:40 09/22/19 24 09/22/2023 CBC AUTO W DIFF RBC 5.13 10 4.25-5 .57 Not Available [facility] (Lab Registration) [place], [address], 09/22/2023 16:45:40 09/22/19 24 09/22/2023 CBC AUTO W DIFF HGB 15.5 g/dL 13.5-1 7.2 Not Available [facility] (Lab Registration) [address] [place], [address], 09/22/2023 16:45:40 09/22/19 24 09/22/2023 CBC AUTO W DIFF HCT 47.2 % 42.0-5 2.0 Not Available [facility] (Lab Registration) [address] [place], [address], 09/22/2023 16:45:40 09/22/19 24 09/22/2023 CBC AUTO W DIFF MCV 92.0 fL 80-95 Not Available [facility] (Lab Registration) [address] [place], [address], 09/22/2023 16:45:40 09/22/19 24 09/22/2023 CBC AUTO W DIFF MCH 30.2 pg 27.0-3 4.0 Not Available [facility] (Lab Registration) [address] [place], [address], 09/22/2023 16:45:40 09/22/19 24 09/22/2023 CBC AUTO W DIFF MCHC 32.8 g/dL 32.0-3 6.0 Not Available [facility] (Lab Registration) [address] [place], [address], 09/22/2023 16:45:40 09/22/19 24 09/22/2023 CBC AUTO W DIFF platelet count 250 10 150-45 0 Not Available [facility] (Lab Registration) [address] [place], [address], 09/22/2023 16:45:40 09/22/19 24 09/22/2023 CBC AUTO W DIFF RDW 13.0 % 12.3-1 5.1 Not Available [facility] (Lab Registration) [address] [place], [address], 09/22/2023 16:45:40 09/22/19 24 09/22/2023 CBC AUTO W DIFF MPV 10.2 fL 7.4-10 .4 Not Available [facility] (Lab Registration) [address], [place], [address], 09/22/2023 16:45:40 09/22/19 24 09/22/2023 CBC AUTO W DIFF granulocyte% 65.6 % 40-75 Not Available [facility] (Lab Registration) [address], [place], [address], 09/22/2023 16:45:40 09/22/19 24 09/22/2023 CBC AUTO W DIFF lymphocyte% 21.3 % 15-57 Not Available [facility] (Lab Registration) [address] [place], [address], 09/22/2023 16:45:40 09/22/19 24 09/22/2023 CBC AUTO W DIFF monocyte% 11.2 % 4.0-12 .0 Not Available [facility] (Lab Registration) [address] [place], [address], 09/22/2023 16:45:40 09/22/19 24 09/22/2023 CBC AUTO W DIFF eosinophil% 0.8 % 0.0-4. 0 Not Available [facility] (Lab Registration) [address] [place], [address], 09/22/2023 16:45:40 09/22/19 24 09/22/2023 CBC AUTO W DIFF basophil% 0.7 % 0.0-1. 0 Not Available [facility] (Lab Registration) [address] [place], [address], 09/22/2023 16:45:40 09/22/19 24 09/22/2023 CBC AUTO W DIFF immature granulocytes % 0.4 % 0.0-0. 8 Not Available [facility] (Lab Registration) [address] [place], [address], 09/22/2023 16:45:40 09/22/19 24 09/22/2023 CBC AUTO W DIFF granulocyte# 5.02 10 Not Available [facility] (Lab Registration) [address] [place], [address], 09/22/2023 16:45:40 09/22/19 24 09/22/2023 CBC AUTO W DIFF lymphocyte# 1.63 10 Not Available [facility] (Lab Registration) [address] [place], [address], 09/22/2023 16:45:40 09/22/19 24 09/22/2023 CBC AUTO W DIFF monocyte# 0.86 10 Not Available [facility] (Lab Registration) [address] [place], [address], 09/22/2023 16:45:40 09/22/19 24 09/22/2023 CBC AUTO W DIFF eosinophil# 0.06 10 Not Available [facility] (Lab Registration) [address] [place], [address], 09/22/2023 16:45:40 09/22/19 24 09/22/2023 CBC AUTO W DIFF basophil# 0.05 10 Not Available [facility] (Lab Registration) [address] [place], [address], 09/22/2023 16:45:40 09/22/19 24 09/22/2023 CBC AUTO W DIFF immature granulocytes # 0.03 10 Not Available [facility] (Lab Registration) [address] [place], [address], 09/22/2023 16:45:40 09/22/19 24 09/22/2023 CBC AUTO W DIFF manual differential NO Not Available [facility] (Lab Registration) [address] [place], [address], 09/22/2023 16:45:40 09/22/19 24 09/22/2023 CBC AUTO W DIFF note Unles s other rodriguez noted testi ng perfo rmed at: [facility] [address] [place] [address] [phone] Torito valadez MD CLIA: [id number] Not Available [facility] (Lab Registration) [address] , [place], [address], 09/22/2023 16:45:40 09/22/19 24 09/22/2023 PT (PROT HROMB IN TIME) W INR PT (prothrombin time) 14.4 secon ds 9.1-12 .0 high Not Available [facility] (Lab Registration) [address], [place], [address], 09/22/2023 16:48:58 09/22/19 24 09/22/2023 PT (PROT HROMB IN TIME) W INR INR 1.33 0.9-1. 1 high INR is inten ded to be used only for patie nts on stabl e oral anti- coagu lant thera py. *Ther apeut ic Range s 2.0 - 3.0 Usual Thera peuti c Range 2.5 - 3.5 For patie nts with a histo ry of multi ple deep vein throm bus or mecha nical heart valve s. Not Available [facility] (Lab Registration) [address], [place], [address], 09/22/2023 16:48:58 09/22/19 24 09/22/2023 PT (PROT HROMB IN TIME) W INR note Unles s other rodriguez noted testi ng perfo rmed at: [facility] [address] [place] [address] [phone] Torito valadez MD CLIA: [id number] Not Available [facility] (Lab Registration) [address], [place], [address], 09/22/2023 16:48:58 09/22/19 24 09/22/2023 COMP METAB OLIC PANEL sodium 141 mmol/ L 136-14 5 Not Available [facility] (Lab Registration) [address] [place], [address], 09/22/2023 17:06:23 09/22/19 24 09/22/2023 COMP METAB OLIC PANEL potassium 4.3 mmol/ L 3.5-5. 1 Not Available [facility] (Lab Registration) [address] [place], [address], 09/22/2023 17:06:23 09/22/19 24 09/22/2023 COMP METAB OLIC PANEL chloride 103 mmol/ L 98-107 Not Available [facility] (Lab Registration) [address] [place], [address], 09/22/2023 17:06:23 09/22/19 24 09/22/2023 COMP METAB OLIC PANEL carbon dioxide 29 mmol/ L 21-32 Not Available [facility] (Lab Registration) [address] [place], [address], 09/22/2023 17:06:23 09/22/19 24 09/22/2023 COMP METAB OLIC PANEL anion gap 9.0 Not Available [facility] (Lab Registration) [address] [place], [address], 09/22/2023 17:06:23 09/22/19 24 09/22/2023 COMP METAB OLIC PANEL glucose 64 mg/dL 70-110 low Not Available [facility] (Lab Registration) [address] [place], [address], 09/22/2023 17:06:23 09/22/19 24 09/22/2023 COMP METAB OLIC PANEL blood urea nitrogen 9 mg/dL 7-18 Not Available [facility] (Lab Registration) [address] [place], [address], 09/22/2023 17:06:23 09/22/19 24 09/22/2023 COMP METAB OLIC PANEL creatinine 0.8 mg/dL 0.8-1. 3 Not Available [facility] (Lab Registration) [address] [place], [address], 09/22/2023 17:06:23 09/22/19 24 09/22/2023 COMP METAB OLIC PANEL BUN/creatini ne ratio 11.3 ratio 9-21 Not Available [facility] (Lab Registration) [address] [place], [address], 09/22/2023 17:06:23 09/22/19 24 09/22/2023 COMP METAB OLIC PANEL estimated glom filtration rate 121 mL/mi n >60- Not Available [facility] (Lab Registration) [address] [place], [address], 09/22/2023 17:06:23 09/22/19 24 09/22/2023 COMP METAB OLIC PANEL total protein 7.0 g/dL 6.4-8. 2 Not Available [facility] (Lab Registration) [address] [place], [address], 09/22/2023 17:06:23 09/22/19 24 09/22/2023 COMP METAB OLIC PANEL albumin 4.0 g/dL 3.4-5. 0 Not Available [facility] (Lab Registration) [address] [place], [address], 09/22/2023 17:06:23 09/22/19 24 09/22/2023 COMP METAB OLIC PANEL calcium 9.5 mg/dL 8.5-10 .1 Not Available [facility] (Lab Registration) [address] [place], [address], 09/22/2023 17:06:23 09/22/19 24 09/22/2023 COMP METAB OLIC PANEL corrected calcium 9.5 mg/dL 8.5-10 .1 Not Available [facility] (Lab Registration) [address] [place], [address], 09/22/2023 17:06:23 09/22/19 24 09/22/2023 COMP METAB OLIC PANEL bilirubin total 0.7 mg/dL 0.4-1. 5 Not Available [facility] (Lab Registration) [address] [place], [address], 09/22/2023 17:06:23 09/22/19 24 09/22/2023 COMP METAB OLIC PANEL AST (SGOT) 30 U/L 15-37 Not Available [facility] (Lab Registration) [address] [place], [address], 09/22/2023 17:06:23 09/22/19 24 09/22/2023 COMP METAB OLIC PANEL ALT (SGPT) 26 U/L 12-78 Not Available [facility] (Lab Registration) [address] [place], [address], 09/22/2023 17:06:23 09/22/19 24 09/22/2023 COMP METAB OLIC PANEL alk phosphatase 61 U/L 50-170 Not Available [facility] (Lab Registration) [address] [place], [address], 09/22/2023 17:06:23 09/22/19 24 09/22/2023 COMP METAB OLIC PANEL note Unles s other rodriguez noted testi ng perfo rmed at: [facility] [address] [place] [address] [phone] Torito valadez MD CLIA: [id number] Not Available [facility] (Lab Registration) [address] [place], [address], 09/22/2023 17:06:23 11/22/19 24 11/22/2023 PT (PROT HROMB IN TIME) W INR PT (prothrombin time) 16.1 secon ds 9.1-12 .0 high Not Available [facility] (Lab Registration) [address] [place], [address], 11/22/2023 13:28:12 11/22/19 24 11/22/2023 PT (PROT HROMB IN TIME) W INR INR 1.52 0.9-1. 1 high INR is inten ded to be used only for patie nts on stabl e oral anti- coagu lant thera py. *Ther apeut ic Range s 2.0 - 3.0 Usual Thera peuti c Range 2.5 - 3.5 For patie nts with a histo ry of multi ple deep vein throm bus or mecha nical heart valve s. Not Available [facility] (Lab Registration) [address] , [place], [address], 11/22/2023 13:28:12 11/22/1911/22/2023 PT (PROT HROMB IN TIME) W INR note Unles s other rodriguez noted testi ng perfo rmed at: [facility] [address] [place] [address] [phone] Torito valadez MD CLIA: [id number] Not Available [facility] (Lab Registration) [address] , [place], [address], 11/22/2023 13:28:12 11/22/1911/23/2023 TSH+F REE T4 TSH 1.220 uIU/m L 0.450- 4.500 normal Not Available [facility] ([facility]) [address] [place], [address], 11/23/2023 08:19:58 11/22/1911/23/2023 TSH+F REE T4 T4,free(dire ct) 1.14 NG/dL 0.82-1 .77 normal Not Available [facility] ([facility]) [address] [place], [address], 11/23/2023 08:19:58 11/22/19 24 11/23/2023 CBC WITH DIFFE RENTI AL/PL ATELE T WBC 4.4 x10e3 /uL 3.4-10 .8 normal Not Available [facility] ([facility]) [address] [facility], [place], [address], 11/23/2023 08:19:59 11/22/1911/23/2023 CBC WITH DIFFE RENTI AL/PL ATELE T RBC 4.88 x10e6 /uL 4.14-5 .80 normal Not Available [facility] ([facility]) [address] [facility], [place], [address], 11/23/2023 08:19:59 11/22/1911/23/2023 CBC WITH DIFFE RENTI AL/PL ATELE T hemoglobin 15.0 g/dL 13.0-1 7.7 normal Not Available [facility] ([facility]) [address] [facility], [place], [address], 11/23/2023 08:19:59 11/22/1911/23/2023 CBC WITH DIFFE RENTI AL/PL ATELE T hematocrit 46.0 % 37.5-5 1.0 normal Not Available [facility] ([facility]) [address] [place], [address], 11/23/2023 08:19:59 11/22/1911/23/2023 CBC WITH DIFFE RENTI AL/PL ATELE T MCV 94 fL 79-97 normal Not Available [facility] ([facility]) [address] [place], [address], 11/23/2023 08:19:59 11/22/1911/23/2023 CBC WITH DIFFE RENTI AL/PL ATELE T MCH 30.7 pg 26.6-3 3.0 normal Not Available [facility] ([facility]) [address] [place], [address], 11/23/2023 08:19:59 11/22/19 24 11/23/2023 CBC WITH DIFFE RENTI AL/PL ATELE T MCHC 32.6 g/dL 31.5-3 5.7 normal Not Available [facility] ([facility]) [address] [facility], [place], [address], 11/23/2023 08:19:59 11/22/19 24 11/23/2023 CBC WITH DIFFE RENTI AL/PL ATELE T RDW 12.6 % 11.6-1 5.4 Not Available [facility] ([facility]) [address] [facility], [place], [address], 11/23/2023 08:19:59 11/22/19 24 11/23/2023 CBC WITH DIFFE RENTI AL/PL ATELE T platelets 207 x10e3 /uL 150-45 0 normal Not Available [facility] ([facility]) [address] [facility], [place], [address], 11/23/2023 08:19:59 11/22/19 24 11/23/2023 CBC WITH DIFFE RENTI AL/PL ATELE T neutrophils 59 % not estab. normal Not Available [facility] ([facility]) [address] [facility], [place], [address], 11/23/2023 08:19:59 11/22/19 24 11/23/2023 CBC WITH DIFFE RENTI AL/PL ATELE T lymphs 27 % not estab. normal Not Available [facility] ([facility]) [address] [facility], [place], [address], 11/23/2023 08:19:59 11/22/19 24 11/23/2023 CBC WITH DIFFE RENTI AL/PL ATELE T monocytes 11 % not estab. normal Not Available [facility] ([facility]) [address] [facility], [place], [address], 11/23/2023 08:19:59 11/22/19 24 11/23/2023 CBC WITH DIFFE RENTI AL/PL ATELE T eos 2 % not estab. normal Not Available [facility] ([facility]) [address] [facility], [place], [address], 11/23/2023 08:19:59 11/22/19 24 11/23/2023 CBC WITH DIFFE RENTI AL/PL ATELE T basos 1 % not estab. normal Not Available [facility] ([facility]) [address] [facility], [place], [address], 11/23/2023 08:19:59 11/22/19 24 11/23/2023 CBC WITH DIFFE RENTI AL/PL ATELE T immature cells GASOLINE ENGINE INSPECTOR Not Available [facility] ([facility]) [address] [facility], [place], [address], 11/23/2023 08:19:59 11/22/19 24 11/23/2023 CBC WITH DIFFE RENTI AL/PL ATELE T neutrophils (absolute) 2.6 x10e3 /uL 1.4-7. 0 normal Not Available [facility] ([facility]) [address] [place], [address], 11/23/2023 08:19:59 11/22/19 24 11/23/2023 CBC WITH DIFFE RENTI AL/PL ATELE T lymphs (absolute) 1.2 x10e3 /uL 0.7-3. 1 normal Not Available [facility] ([facility]) [address] [place], [address], 11/23/2023 08:19:59 11/22/19 24 11/23/2023 CBC WITH DIFFE RENTI AL/PL ATELE T monocytes(ab solute) 0.5 x10e3 /uL 0.1-0. 9 normal Not Available [facility] ([facility]) [address] [place], [address], 11/23/2023 08:19:59 11/22/19 24 11/23/2023 CBC WITH DIFFE RENTI AL/PL ATELE T eos (absolute) 0.1 x10e3 /uL 0.0-0. 4 normal Not Available [facility] ([facility]) [address] [facility], [place], [address], 11/23/2023 08:19:59 11/22/19 24 11/23/2023 CBC WITH DIFFE RENTI AL/PL ATELE T baso (absolute) 0.0 x10e3 /uL 0.0-0. 2 normal Not Available [facility] ([facility]) [address] [facility], [place], [address], 11/23/2023 08:19:59 11/22/19 24 11/23/2023 CBC WITH DIFFE RENTI AL/PL ATELE T immature granulocytes 0 % not estab. Not Available [facility] ([facility]) [address] [facility], [place], [address], 11/23/2023 08:19:59 11/22/19 24 11/23/2023 CBC WITH DIFFE RENTI AL/PL ATELE T immature grans (abs) 0.0 x10e3 /uL 0.0-0. 1 Not Available [facility] ([facility]) [address] [facility], [place], [address], 11/23/2023 08:19:59 11/22/19 24 11/23/2023 CBC WITH DIFFE RENTI AL/PL ATELE T NRBC GASOLINE ENGINE INSPECTOR Not Available [facility] ([facility]) [address] [facility], [place], [address], 11/23/2023 08:19:59 11/22/19 24 11/23/2023 CBC WITH DIFFE RENTI AL/PL ATELE T hematology comments: GASOLINE ENGINE INSPECTOR Not Available [facility] ([facility]) [address] [facility], [place], [address], 11/23/2023 08:19:59 11/22/19 24 11/23/2023 COMP. METAB OLIC PANEL (14) glucose COMMEN T mg/dL Test not perfo rmed. Serum was in conta ct with cells when recei gerson which will make the resul t inacc urate . Not Available [facility] ([facility]) [address] [place], [address], 11/23/2023 08:19:59 11/22/19 24 11/23/2023 COMP. METAB OLIC PANEL (14) BUN 7 mg/dL 6-20 normal Not Available [facility] ([facility]) [address] [place], [address], 11/23/2023 08:19:59 11/22/19 24 11/23/2023 COMP. METAB OLIC PANEL (14) creatinine 0.87 mg/dL 0.76-1 .27 normal Not Available [facility] ([facility]) [address] [place], [address], 11/23/2023 08:19:59 11/22/19 24 11/23/2023 COMP. METAB OLIC PANEL (14) eGFR 117 mL/mi n/1.7 3 >59 normal Not Available [facility] ([facility]) [address] [facility], [place], [address], 11/23/2023 08:19:59 11/22/19 24 11/23/2023 COMP. METAB OLIC PANEL (14) BUN/creatini ne ratio 8 9-20 below low normal Not Available [facility] ([facility]) [address] [place], [address], 11/23/2023 08:19:59 11/22/19 24 11/23/2023 COMP. METAB OLIC PANEL (14) sodium 140 mmol/ L 134-14 4 normal Not Available [facility] ([facility]) [address] [place], [address], 11/23/2023 08:19:59 11/22/19 24 11/23/2023 COMP. METAB OLIC PANEL (14) potassium COMMEN T mmol/ L Test not perfo rmed. Serum was in conta ct with cells when recei gerson which will make the resul t inacc urate . Not Available [facility] ([facility]) [address] [place], [address], 11/23/2023 08:19:59 11/22/19 24 11/23/2023 COMP. METAB OLIC PANEL (14) chloride 102 mmol/ L 96-106 normal Not Available [facility] ([facility]) [address] [place], [id number], 11/23/2023 08:19:59 11/22/19 24 11/23/2023 COMP. METAB OLIC PANEL (14) carbon dioxide, total 19 mmol/ L 20-29 below low normal Not Available [facility] ([facility]) [address] [facility] [place], [address], 11/23/2023 08:19:59 11/22/19 24 11/23/2023 COMP. METAB OLIC PANEL (14) calcium 9.3 mg/dL 8.7-10 .2 normal Not Available [facility] ([facility]) [address] [place], [address], 11/23/2023 08:19:59 11/22/1911/23/2023 COMP. METAB OLIC PANEL (14) protein, total 6.5 g/dL 6.0-8. 5 normal Not Available [facility] ([facility]) [address] [place], [address], 11/23/2023 08:19:59 11/22/19 24 11/23/2023 COMP. METAB OLIC PANEL (14) albumin 4.3 g/dL 4.1-5. 1 normal Not Available [facility] ([facility]) [address] [facility] [place], [address], 11/23/2023 08:19:59 11/22/19 24 11/23/2023 COMP. METAB OLIC PANEL (14) globulin, total 2.2 g/dL 1.5-4. 5 Not Available [facility] ([facility]) [address] [place], [address], 11/23/2023 08:19:59 11/22/19 24 11/23/2023 COMP. METAB OLIC PANEL (14) bilirubin, total 0.3 mg/dL 0.0-1. 2 normal Not Available [facility] ([facility]) [address] [place], [address], 11/23/2023 08:19:59 11/22/19 24 11/23/2023 COMP. METAB OLIC PANEL (14) alkaline phosphatase 59 IU/L 44-121 normal Not Available [facility] ([facility]) [address] [place], [address], 11/23/2023 08:19:59 11/22/19 24 11/23/2023 COMP. METAB OLIC PANEL (14) AST (SGOT) 22 IU/L 0-40 normal Not Available [facility] ([facility]) [address] [place], [address], 11/23/2023 08:19:59 11/22/19 24 11/23/2023 COMP. METAB OLIC PANEL (14) ALT (SGPT) 22 IU/L 0-44 normal Not Available [facility] ([facility]) [address] [place], [address], 11/23/2023 08:19:59 11/22/19 24 11/23/2023 LIPID PANEL WITH LDL/H DL RATIO cholesterol, total 139 mg/dL 100-19 9 normal Not Available [facility] ([facility]) [address] [place], [address], 11/23/2023 08:20:00 11/22/19 24 11/23/2023 LIPID PANEL WITH LDL/H DL RATIO triglyceride s 133 mg/dL 0-149 normal Not Available [facility] ([facility]) [address] [place], [address], 11/23/2023 08:20:00 11/22/19 24 11/23/2023 LIPID PANEL WITH LDL/H DL RATIO HDL cholesterol 46 mg/dL >39 normal Not Available [facility] ([facility]) [address] [facility], [place], [address], 11/23/2023 08:20:00 11/22/19 24 11/23/2023 LIPID PANEL WITH LDL/H DL RATIO VLDL cholesterol chris 23 mg/dL 5-40 Not Available [facility] ([facility]) [address] [place], [address], 11/23/2023 08:20:00 11/22/1911/23/2023 LIPID PANEL WITH LDL/H DL RATIO LDL chol calc (rust) 70 mg/dL 0-99 Not Available [facility] ([facility]) [address] [facility], [place], [address], 11/23/2023 08:20:00 11/22/19 24 11/23/2023 LIPID PANEL WITH LDL/H DL RATIO LDL calc comment: GASOLINE ENGINE INSPECTOR Not Available [facility] ([facility]) [address] [place], [address], 11/23/2023 08:20:00 11/22/19 24 11/23/2023 LIPID PANEL WITH LDL/H DL RATIO LDL/HDL ratio 1.5 ratio 0.0-3. 6 LDL/H DL Ratio Men Women 1/2 Avg.R isk 1.0 1.5 Avg.R isk 3.6 3.2 2X Avg.R isk 6.2 5.0 3X Avg.R isk 8.0 6.1 Not Available [facility] ([facility]) [address] [place], [address], 11/23/2023 08:20:00 01/21/20 24 01/21/2024 PT (PROT HROMB IN TIME) W INR PT (prothrombin time) 18.4 secon ds 9.1-12 .0 high Not Available [facility] (Lab Registration) [address], [place], [address], 01/21/2024 13:46:33 01/21/20 24 01/21/2024 PT (PROT HROMB IN TIME) W INR INR 1.75 0.9-1. 1 high INR is inten ded to be used only for patie nts on stabl e oral anti- coagu lant thera py. *Ther apeut ic Range s 2.0 - 3.0 Usual Thera peuti c Range 2.5 - 3.5 For patie nts with a histo ry of multi ple deep vein throm bus or mecha nical heart valve s. Not Available [facility] (Lab Registration) [address], [place], [address], 01/21/2024 13:46:33 01/21/20 24 01/21/2024 PT (PROT HROMB IN TIME) W INR note Unles s other rodriguez noted testi ng perfo rmed at: [facility] [address] [place] [address] [phone] Torito valadez MD CLIA: [id number] Not Available [facility] (Lab Registration) [address], [place], [address], 01/21/2024 13:46:33 06/06/19 25 06/05/2024 CBC AUTO W DIFF WBC 6.1 10 4.5-11 .5 Not Available [facility] (Lab Registration) [address] [place], [address], 06/05/2024 16:36:57 06/06/1906/05/2024 CBC AUTO W DIFF RBC 5.15 10 4.25-5 .57 Not Available [facility] (Lab Registration) [address], [place], [address], 06/05/2024 16:36:57 06/06/1906/05/2024 CBC AUTO W DIFF HGB 15.4 g/dL 13.5-1 7.2 Not Available [facility] (Lab Registration) [address], [place], [address], 06/05/2024 16:36:57 06/06/19 25 06/05/2024 CBC AUTO W DIFF HCT 45.5 % 42.0-5 2.0 Not Available [facility] (Lab Registration) [address], [place], [address], 06/05/2024 16:36:57 06/06/19 25 06/05/2024 CBC AUTO W DIFF MCV 88.3 fL 80-95 Not Available [facility] (Lab Registration) [address], [place], [address], 06/05/2024 16:36:57 06/06/19 25 06/05/2024 CBC AUTO W DIFF MCH 29.9 pg 27.0-3 4.0 Not Available [facility] (Lab Registration) [address], [place], [address], 06/05/2024 16:36:57 06/06/19 25 06/05/2024 CBC AUTO W DIFF MCHC 33.8 g/dL 32.0-3 6.0 Not Available [facility] (Lab Registration) [address], [place], [address], 06/05/2024 16:36:57 06/06/19 25 06/05/2024 CBC AUTO W DIFF platelet count 211 10 150-45 0 Not Available [facility] (Lab Registration) [address] [place], [address], 06/05/2024 16:36:57 06/06/19 25 06/05/2024 CBC AUTO W DIFF RDW 12.8 % 12.3-1 5.1 Not Available [facility] (Lab Registration) [address] [place], [address], 06/05/2024 16:36:57 06/06/19 25 06/05/2024 CBC AUTO W DIFF MPV 10.6 fL 7.4-10 .4 high Not Available [facility] (Lab Registration) [address], [place], [address], 06/05/2024 16:36:57 06/06/19 25 06/05/2024 CBC AUTO W DIFF granulocyte% 85.9 % 40-75 high Not Available [facility] (Lab Registration) [address] [place], [address], 06/05/2024 16:36:57 06/06/19 25 06/05/2024 CBC AUTO W DIFF lymphocyte% 9.0 % 15-57 low Not Available [facility] (Lab Registration) [address] [place], [address], 06/05/2024 16:36:57 06/06/19 25 06/05/2024 CBC AUTO W DIFF monocyte% 3.9 % 4.0-12 .0 low Not Available [facility] (Lab Registration) [address] [place], [address], 06/05/2024 16:36:57 06/06/19 25 06/05/2024 CBC AUTO W DIFF eosinophil% 0.5 % 0.0-4. 0 Not Available [facility] (Lab Registration) [address] [place], [address], 06/05/2024 16:36:57 06/06/19 25 06/05/2024 CBC AUTO W DIFF basophil% 0.5 % 0.0-1. 0 Not Available [facility] (Lab Registration) [address] [place], [address], 06/05/2024 16:36:57 06/06/19 25 06/05/2024 CBC AUTO W DIFF immature granulocytes % 0.2 % 0.0-0. 8 Not Available [facility] (Lab Registration) [address] [place], [address], 06/05/2024 16:36:57 06/06/19 25 06/05/2024 CBC AUTO W DIFF granulocyte# 5.28 10 Not Available [facility] (Lab Registration) [address] [place], [address], 06/05/2024 16:36:57 06/06/19 25 06/05/2024 CBC AUTO W DIFF lymphocyte# 0.55 10 Not Available [facility] (Lab Registration) [address] [place], [address], 06/05/2024 16:36:57 06/06/19 25 06/05/2024 CBC AUTO W DIFF monocyte# 0.24 10 Not Available [facility] (Lab Registration) [address] [place], [address], 06/05/2024 16:36:57 06/06/19 25 06/05/2024 CBC AUTO W DIFF eosinophil# 0.03 10 Not Available [facility] (Lab Registration) [address] [place], [address], 06/05/2024 16:36:57 06/06/19 25 06/05/2024 CBC AUTO W DIFF basophil# 0.03 10 Not Available [facility] (Lab Registration) [address] [place], [address], 06/05/2024 16:36:57 06/06/19 25 06/05/2024 CBC AUTO W DIFF immature granulocytes # 0.01 10 Not Available [facility] (Lab Registration) [address] [place], [address], 06/05/2024 16:36:57 06/06/19 25 06/05/2024 CBC AUTO W DIFF manual differential NO Not Available [facility] (Lab Registration) [address] [place], [address], 06/05/2024 16:36:57 06/06/19 25 06/05/2024 CBC AUTO W DIFF note Unles s other rodriguez noted testi ng perfo rmed at: [facility] [address] [place], [place] [id number] [phone] Torito valadez MD CLIA: [id number] Not Available [facility] (Lab Registration) [address] , [place], [address], 06/05/2024 16:36:57 06/06/19 25 06/05/2024 PT (PROT HROMB IN TIME) W INR PT (prothrombin time) 17.9 secon ds 9.1-12 .0 high Not Available [facility] (Lab Registration) [address] [place], [address], 06/05/2024 16:46:54 06/06/19 25 06/05/2024 PT (PROT HROMB IN TIME) W INR INR 1.70 0.9-1. 1 high INR is inten ded to be used only for patie nts on stabl e oral anti- coagu lant thera py. *Ther apeut ic Range s 2.0 - 3.0 Usual Thera peuti c Range 2.5 - 3.5 For patie nts with a histo ry of multi ple deep vein throm bus or mecha nical heart valve s. Not Available [facility] (Lab Registration) [address] [place], [address], 06/05/2024 16:46:54 06/06/19 25 06/05/2024 PT (PROT HROMB IN TIME) W INR note Unles s other rodriguez noted testi ng perfo rmed at: [facility] [address] [place] [address] [phone] Torito valadez MD CLIA: [id number] Not Available [facility] (Lab Registration) [address] [place], [address], 06/05/2024 16:46:54 03/10/06/05/2024 URINE DRUG SCREE N - EXL MAX amphetamine/ metamphetami ne NEGATI VE negati ve Not Available [facility] (Lab Registration) [address] [place], [address], 06/05/2024 16:48:01 06/06/19 25 06/05/2024 URINE DRUG SCREE N - EXL MAX barbiturates NEGATI VE negati ve Not Available [facility] (Lab Registration) [address] [place], [address], 06/05/2024 16:48:01 06/06/19 25 06/05/2024 URINE DRUG SCREE N - EXL MAX benzodiazeph shirin NEGATI VE negati ve Not Available [facility] (Lab Registration) [address] [place], [address], 06/05/2024 16:48:01 06/06/19 25 06/05/2024 URINE DRUG SCREE N - EXL MAX buprenophine NEGATI VE negati ve Not Available [facility] (Lab Registration) [address] [place], [address], 06/05/2024 16:48:01 06/06/19 25 06/05/2024 URINE DRUG SCREE N - EXL MAX cocaine metabolite NEGATI VE negati ve Not Available [facility] (Lab Registration) [address] [place], [address], 06/05/2024 16:48:01 06/06/19 25 06/05/2024 URINE DRUG SCREE N - EXL MAX methadone NEGATI VE negati ve Not Available [facility] (Lab Registration) [address] [place], [address], 06/05/2024 16:48:01 06/06/19 25 06/05/2024 URINE DRUG SCREE N - EXL MAX opiates NEGATI VE negati ve Not Available [facility] (Lab Registration) [address] [place], [address], 06/05/2024 16:48:01 06/06/19 25 06/05/2024 URINE DRUG SCREE N - EXL MAX oxycodone NEGATI VE negati ve Not Available [facility] (Lab Registration) [address], [place], [address], 06/05/2024 16:48:01 06/06/19 25 06/05/2024 URINE DRUG SCREE N - EXL MAX cannabinoids NEGATI VE negati ve Not Available [facility] (Lab Registration) [address] [place], [address], 06/05/2024 16:48:01 06/06/19 25 06/05/2024 URINE DRUG SCREE N - EXL MAX pcp NEGATI VE negati ve Not Available [facility] (Lab Registration) [address] [place], [address], 06/05/2024 16:48:01 06/06/19 25 06/05/2024 URINE DRUG SCREE N - EXL MAX fentanyl, urine NEGATI VE negati ve Not Available [facility] (Lab Registration) [address] [place], [address], 06/05/2024 16:48:01 06/06/19 25 06/05/2024 URINE DRUG SCREE N - EXL MAX tricyclic antidepressa nts NEGATI VE negati ve Not Available [facility] (Lab Registration) [address] [place], [address], 06/05/2024 16:48:01 06/06/19 25 06/05/2024 URINE DRUG SCREE N - EXL MAX internal control PASS PASS Not Available [facility] (Lab Registration) [address] [place], [address], 06/05/2024 16:48:01 06/06/19 25 06/05/2024 URINE DRUG SCREE N - EXL MAX note Unles s other rodriguez noted testi ng perfo rmed at: [facility] [address] [place] [address] [phone] Torito valadez MD CLIA: [id number] Not Available [facility] (Lab Registration) [address] [place], [address], 06/05/2024 16:48:01 06/06/19 25 06/05/2024 VITAM IN D TOTAL (D2+D 3) vitamin D25 (D2+D3) 20.2 NG/mL 30-100 low Not Available [facility] (Lab Registration) [address] [place], [address], 06/05/2024 17:25:08 06/06/19 25 06/05/2024 VITAM IN D TOTAL (D2+D 3) note Unles s other rodriguez noted testi ng perfo rmed at: [facility] [address] [place] [address] [phone] Torito valadez MD CLIA: [id number] Not Available [facility] (Lab Registration) [address] [place], [address], 06/05/2024 17:25:08 06/06/19 25 06/05/2024 COMP METAB OLIC PANEL sodium 137 mmol/ L 136-14 5 Not Available [facility] (Lab Registration) [address] [place], [address], 06/05/2024 17:25:09 06/06/19 25 06/05/2024 COMP METAB OLIC PANEL potassium 3.9 mmol/ L 3.5-5. 1 Not Available [facility] (Lab Registration) [address] [place], [address], 06/05/2024 17:25:09 06/06/19 25 06/05/2024 COMP METAB OLIC PANEL chloride 105 mmol/ L 98-107 Not Available [facility] (Lab Registration) [address] [place], [address], 06/05/2024 17:25:09 06/06/19 25 06/05/2024 COMP METAB OLIC PANEL carbon dioxide 26 mmol/ L 21-32 Not Available [facility] (Lab Registration) [address], [place], [address], 06/05/2024 17:25:09 06/06/19 25 06/05/2024 COMP METAB OLIC PANEL anion gap 6.0 Not Available [facility] (Lab Registration) [address] [place], [address], 06/05/2024 17:25:09 06/06/19 25 06/05/2024 COMP METAB OLIC PANEL glucose 138 mg/dL 70-110 high Not Available [facility] (Lab Registration) [address] [place], [address], 06/05/2024 17:25:09 06/06/19 25 06/05/2024 COMP METAB OLIC PANEL blood urea nitrogen 11 mg/dL 7-18 Not Available [facility] (Lab Registration) [address] [place], [address], 06/05/2024 17:25:09 06/06/19 25 06/05/2024 COMP METAB OLIC PANEL creatinine 1.0 mg/dL 0.8-1. 3 Not Available [facility] (Lab Registration) [address] [place], [address], 06/05/2024 17:25:09 06/06/19 25 06/05/2024 COMP METAB OLIC PANEL BUN/creatini ne ratio 11.0 9-21 Not Available [facility] (Lab Registration) [address] [place], [address], 06/05/2024 17:25:09 06/06/19 25 06/05/2024 COMP METAB OLIC PANEL estimated glom filtration rate 102 mL/mi n >60- GFR LIMIT ATION : The eGFR equat ion CKD-E PI 2020 is not appli cable for pedia tric patie nts or great er than 90 years of age. The follo wing condi tions may alter the GFR resul t: extre mes in body size, malnu triti on or obesi ty, skele ahsan muscl e disea se, parap legia or quadr ipleg ia, veget inez diet or rapid ly ceja ing kiney funct ion. Not Available [facility] (Lab Registration) [address], [place], [address], 06/05/2024 17:25:09 06/06/19 25 06/05/2024 COMP METAB OLIC PANEL total protein 6.7 g/dL 6.4-8. 2 Not Available [facility] (Lab Registration) [address], [place], [address], 06/05/2024 17:25:09 06/06/19 25 06/05/2024 COMP METAB OLIC PANEL albumin 3.8 g/dL 3.4-5. 0 Not Available [facility] (Lab Registration) [address], [place], [address], 06/05/2024 17:25:09 06/06/19 25 06/05/2024 COMP METAB OLIC PANEL calcium 9.2 mg/dL 8.5-10 .1 Not Available [facility] (Lab Registration) [address], [place], [address], 06/05/2024 17:25:09 06/06/19 25 06/05/2024 COMP METAB OLIC PANEL corrected calcium 9.4 mg/dL 8.5-10 .1 Not Available [facility] (Lab Registration) [address] [place], [address], 06/05/2024 17:25:09 06/06/19 25 06/05/2024 COMP METAB OLIC PANEL bilirubin total 0.6 mg/dL 0.4-1. 5 Not Available [facility] (Lab Registration) [address] [place], [address], 06/05/2024 17:25:09 06/06/19 25 06/05/2024 COMP METAB OLIC PANEL AST (SGOT) 20 U/L 15-37 Not Available [facility] (Lab Registration) [address] [place], [address], 06/05/2024 17:25:09 06/06/19 25 06/05/2024 COMP METAB OLIC PANEL ALT (SGPT) 33 U/L 12-78 Not Available [facility] (Lab Registration) [address] [place], [address], 06/05/2024 17:25:09 06/06/19 25 06/05/2024 COMP METAB OLIC PANEL alk phosphatase 64 U/L 50-170 Not Available [facility] (Lab Registration) [address] [place], [address], 06/05/2024 17:25:09 06/06/19 25 06/05/2024 COMP METAB OLIC PANEL note Unles s other rodriguez noted testi ng perfo rmed at: [facility] [address] [place] [address] [phone] Torito valadez MD CLIA: [id number] Not Available [facility] (Lab Registration) [address] [place], [address], 06/05/2024 17:25:09 06/06/19 25 06/05/2024 GABAP ENTIN , URINE note Unles s other rodriguez noted testi ng perfo rmed at: [facility] [address] [place] [address] [phone] Torito valadez MD CLIA: [id number] Not Available [facility] (Lab Registration) [address] [place], [address], 06/07/2024 22:08:04 06/06/19 25 06/07/2024 GABAP ENTIN , URINE gabapentin, urine 38.1 ug/mL Perfo rmed at: [facility] [address], [place], [place] [id number] Lab Direc tor: Poly Soliz pet[facility] , Phone : [phone] Not Available [facility] (Lab Registration) [address] [place], [address], 06/07/2024 22:08:04 08/03/19 25 08/02/2024 CBC AUTO W DIFF WBC 6.0 10 4.5-11 .5 Not Available [facility] (Lab Registration) [address] [place], [address], 08/02/2024 17:18:12 08/03/19 25 08/02/2024 CBC AUTO W DIFF RBC 5.16 10 4.25-5 .57 Not Available [facility] (Lab Registration) [address] [place], [address], 08/02/2024 17:18:12 08/03/19 25 08/02/2024 CBC AUTO W DIFF HGB 15.6 g/dL 13.5-1 7.2 Not Available [facility] (Lab Registration) [address] [place], [address], 08/02/2024 17:18:12 08/03/19 25 08/02/2024 CBC AUTO W DIFF HCT 46.3 % 42.0-5 2.0 Not Available [facility] (Lab Registration) [address] [place], [address], 08/02/2024 17:18:12 08/03/19 25 08/02/2024 CBC AUTO W DIFF MCV 89.7 fL 80-95 Not Available [facility] (Lab Registration) [address] [place], [address], 08/02/2024 17:18:12 08/03/19 25 08/02/2024 CBC AUTO W DIFF MCH 30.2 pg 27.0-3 4.0 Not Available [facility] (Lab Registration) [address] [place], [address], 08/02/2024 17:18:12 08/03/19 25 08/02/2024 CBC AUTO W DIFF MCHC 33.7 g/dL 32.0-3 6.0 Not Available [facility] (Lab Registration) [address] [place], [address], 08/02/2024 17:18:12 08/03/19 25 08/02/2024 CBC AUTO W DIFF platelet count 217 10 150-45 0 Not Available [facility] (Lab Registration) [address] [place], [address], 08/02/2024 17:18:12 08/03/19 25 08/02/2024 CBC AUTO W DIFF RDW 13.0 % 12.3-1 5.1 Not Available [facility] (Lab Registration) [address] [place], [address], 08/02/2024 17:18:12 08/03/19 25 08/02/2024 CBC AUTO W DIFF MPV 10.4 fL 7.4-10 .4 Not Available [facility] (Lab Registration) [address] [place], [address], 08/02/2024 17:18:12 08/03/19 25 08/02/2024 CBC AUTO W DIFF granulocyte% 62.4 % 40-75 Not Available [facility] (Lab Registration) [address] [place], [address], 08/02/2024 17:18:12 08/03/19 25 08/02/2024 CBC AUTO W DIFF lymphocyte% 26.5 % 15-57 Not Available [facility] (Lab Registration) [address] [place], [address], 08/02/2024 17:18:12 08/03/19 25 08/02/2024 CBC AUTO W DIFF monocyte% 9.3 % 4.0-12 .0 Not Available [facility] (Lab Registration) [address] [place], [address], 08/02/2024 17:18:12 08/03/19 25 08/02/2024 CBC AUTO W DIFF eosinophil% 0.8 % 0.0-4. 0 Not Available [facility] (Lab Registration) [address] [place], [address], 08/02/2024 17:18:12 08/03/19 25 08/02/2024 CBC AUTO W DIFF basophil% 0.8 % 0.0-1. 0 Not Available [facility] (Lab Registration) [address] [place], [address], 08/02/2024 17:18:12 08/03/19 25 08/02/2024 CBC AUTO W DIFF immature granulocytes % 0.2 % 0.0-0. 8 Not Available [facility] (Lab Registration) [address] [place], [address], 08/02/2024 17:18:12 08/03/19 25 08/02/2024 CBC AUTO W DIFF granulocyte# 3.74 10 Not Available [facility] (Lab Registration) [address] [place], [address], 08/02/2024 17:18:12 08/03/19 25 08/02/2024 CBC AUTO W DIFF lymphocyte# 1.59 10 Not Available [facility] (Lab Registration) [address] [place], [address], 08/02/2024 17:18:12 08/03/19 25 08/02/2024 CBC AUTO W DIFF monocyte# 0.56 10 Not Available [facility] (Lab Registration) [address] [place], [address], 08/02/2024 17:18:12 08/03/19 25 08/02/2024 CBC AUTO W DIFF eosinophil# 0.05 10 Not Available [facility] (Lab Registration) [address] [place], [address], 08/02/2024 17:18:12 08/03/19 25 08/02/2024 CBC AUTO W DIFF basophil# 0.05 10 Not Available [facility] (Lab Registration) [address] [place], [address], 08/02/2024 17:18:12 08/03/19 25 08/02/2024 CBC AUTO W DIFF immature granulocytes # 0.01 10 Not Available [facility] (Lab Registration) [address] [place], [address], 08/02/2024 17:18:12 08/03/19 25 08/02/2024 CBC AUTO W DIFF manual differential NO Not Available [facility] (Lab Registration) [address] [place], [address], 08/02/2024 17:18:12 08/03/19 25 08/02/2024 CBC AUTO W DIFF note Unles s other rodriguez noted testi ng perfo rmed at: [facility] [address] [place] [address] [phone] Torito valadez MD CLIA: [id number] Not Available [facility] (Lab Registration) [address] [place], [address], 08/02/2024 17:18:12 08/03/19 25 08/02/2024 PT (PROT HROMB IN TIME) W INR PT (prothrombin time) 18.9 secon ds 9.1-12 .0 high Not Available [facility] (Lab Registration) [address] [place], [address], 08/02/2024 17:26:32 08/03/19 25 08/02/2024 PT (PROT HROMB IN TIME) W INR INR 1.80 0.9-1. 1 high INR is inten ded to be used only for patie nts on stabl e oral anti- coagu lant thera py. *Ther apeut ic Range s 2.0 - 3.0 Usual Thera peuti c Range 2.5 - 3.5 For patie nts with a histo ry of multi ple deep vein throm bus or mecha nical heart valve s. Not Available [facility] (Lab Registration) [address] [place], [address], 08/02/2024 17:26:32 08/03/19 25 08/02/2024 PT (PROT HROMB IN TIME) W INR note Unles s other rodriguez noted testi ng perfo rmed at: [facility] [address] [place] [phone] Torito valadez MD CLIA: [id number] Not Available [facility] (Lab Registration) [address] [place], [address], 08/02/2024 17:26:32 08/03/19 25 08/02/2024 HEMOG LOBIN A1C glycosylated hemoglobin A1C 5.1 % 4.5-6. 2 Not Available [facility] (Lab Registration) [address] [place], [address], 08/02/2024 17:26:34 08/03/19 25 08/02/2024 HEMOG LOBIN A1C estimated average glucose 100 mg/dL 82-131 Not Available [facility] (Lab Registration) [address] [place], [address], 08/02/2024 17:26:34 08/03/19 25 08/02/2024 HEMOG LOBIN A1C note Unles s other rodriguez noted testi ng perfo rmed at: [email or web address] [phone] Torito valadez MD CLIA: [id number] Not Available [facility] (Lab Registration) [address] [place], [address], 08/02/2024 17:26:34 08/03/19 25 08/02/2024 COMP METAB OLIC PANEL sodium 138 mmol/ L 136-14 5 Not Available [facility] (Lab Registration) [address] [place], [address], 08/02/2024 17:50:05 08/03/19 25 08/02/2024 COMP METAB OLIC PANEL potassium 4.3 mmol/ L 3.5-5. 1 Not Available [facility] (Lab Registration) [address] [place], [address], 08/02/2024 17:50:05 08/03/19 25 08/02/2024 COMP METAB OLIC PANEL chloride 102 mmol/ L 98-107 Not Available [facility] (Lab Registration) [address] [place], [address], 08/02/2024 17:50:05 08/03/19 25 08/02/2024 COMP METAB OLIC PANEL carbon dioxide 23 mmol/ L 21-32 Not Available [facility] (Lab Registration) [address] [place], [address], 08/02/2024 17:50:05 08/03/19 25 08/02/2024 COMP METAB OLIC PANEL anion gap 13.0 Not Available [facility] (Lab Registration) [address] [place], [address], 08/02/2024 17:50:05 08/03/19 25 08/02/2024 COMP METAB OLIC PANEL glucose 91 mg/dL 70-110 Not Available [facility] (Lab Registration) [address] [place], [address], 08/02/2024 17:50:05 08/03/19 25 08/02/2024 COMP METAB OLIC PANEL blood urea nitrogen 12 mg/dL 7-18 Not Available [facility] (Lab Registration) [address] [place], [address], 08/02/2024 17:50:05 08/03/19 25 08/02/2024 COMP METAB OLIC PANEL creatinine 0.8 mg/dL 0.8-1. 3 Not Available [facility] (Lab Registration) [address], [place], [address], 08/02/2024 17:50:05 08/03/19 25 08/02/2024 COMP METAB OLIC PANEL BUN/creatini ne ratio 15.0 9-21 Not Available [facility] (Lab Registration) [address] [place], [address], 08/02/2024 17:50:05 08/03/19 25 08/02/2024 COMP METAB OLIC PANEL estimated glom filtration rate 120 mL/mi n >60- GFR LIMIT ATION : The eGFR equat ion CKD-E PI 2020 is not appli cable for pedia tric patie nts or great er than 90 years of age. The follo wing condi tions may alter the GFR resul t: extre mes in body size, malnu triti on or obesi ty, skele ahsan muscl e disea se, parap legia or quadr ipleg ia, veget inez diet or rapid ly ceja ing kiney funct ion. Not Available [facility] (Lab Registration) [address], [place], [address], 08/02/2024 17:50:05 08/03/1908/02/2024 COMP METAB OLIC PANEL osmolality (calculated) 286 mOsm/ kg 275-30 1 OSMOL ALITY IS A CALCU LATIO N UTILI ZING THE SERUM /PLAS MA SODIU M, GLUCO SE AND UREA NITRO GEN (BUN) LEVEL S. FOR THE MOST ACCUR ATE RESUL T A MEASU RED SERUM OSMOL ALITY IS SUGGE STED. Not Available [facility] (Lab Registration) [address] [place], [address], 08/02/2024 17:50:05 08/03/19 25 08/02/2024 COMP METAB OLIC PANEL total protein 7.3 g/dL 6.4-8. 2 Not Available [facility] (Lab Registration) [address] [place], [address], 08/02/2024 17:50:05 08/03/19 25 08/02/2024 COMP METAB OLIC PANEL albumin 4.0 g/dL 3.4-5. 0 Not Available [facility] (Lab Registration) [address], [place], [address], 08/02/2024 17:50:05 08/03/19 25 08/02/2024 COMP METAB OLIC PANEL calcium 9.5 mg/dL 8.5-10 .1 Not Available [facility] (Lab Registration) [address] [place], [address], 08/02/2024 17:50:05 08/03/19 25 08/02/2024 COMP METAB OLIC PANEL corrected calcium 9.5 mg/dL 8.5-10 .1 Not Available [facility] (Lab Registration) [address] [place], [address], 08/02/2024 17:50:05 08/03/19 25 08/02/2024 COMP METAB OLIC PANEL bilirubin total 1.0 mg/dL 0.4-1. 5 Not Available [facility] (Lab Registration) [address] [place], [address], 08/02/2024 17:50:05 08/03/19 25 08/02/2024 COMP METAB OLIC PANEL AST (SGOT) 51 U/L 15-37 high Not Available [facility] (Lab Registration) [address] [place], [address], 08/02/2024 17:50:05 08/03/19 25 08/02/2024 COMP METAB OLIC PANEL ALT (SGPT) 30 U/L 12-78 Not Available [facility] (Lab Registration) [address] [place], [address], 08/02/2024 17:50:05 08/03/19 25 08/02/2024 COMP METAB OLIC PANEL alk phosphatase 78 U/L 50-170 Not Available [facility] (Lab Registration) [address], [place], [address], 08/02/2024 17:50:05 08/03/19 25 08/02/2024 COMP METAB OLIC PANEL note Unles s other rodriguez noted testi ng perfo rmed at: [facility] [address] [place] [address] [phone] Torito valadez MD CLIA: [id number] Not Available [facility] (Lab Registration) [address] , [place], [address], 08/02/2024 17:50:05 08/03/19 25 08/02/2024 VITAM IN D TOTAL (D2+D 3) vitamin D25 (D2+D3) 24.3 NG/mL 30-100 low Not Available [facility] (Lab Registration) [address] [place], [address], 08/02/2024 17:50:07 08/03/19 25 08/02/2024 VITAM IN D TOTAL (D2+D 3) note Neda valadez other rodriguez noted testi ng perfo rmed at: [facility] [address] [place] [address] [phone] Torito valadez MD CLIA: [id number] Not Available [facility] (Lab Registration) [address] [place], [address], 08/02/2024 17:50:07 06/15/19 25 06/14/2024 imagi ng inter preta tion No observ ation record ed. [email or web address] [facility] [address], [place], [address], 06/20/2024 08:44:38 06/15/19 25 06/14/2024 imagi ng inter preta tion No observ ation record ed. [email or web address] [facility] [address], [place], [address], 06/20/2024 08:44:34 06/15/19 25 06/14/2024 imagi ng inter preta tion No observ ation record ed. [email or web address] [facility] [address], [place], [address], 06/20/2024 08:44:30 Result Notes None recorded. Problems Name Problem SNOMED Code Status Onset Date Resolution Date Notes Provider Name and Address Organization Details Recorded Time Scleroderma Active 2024 AMRIT GROVE NP [address], [place], [address], [place] - [facility] - [place] & [place] 5 14:33:23 Lupus anticoagulant disorder 74043089 Active 2021 Mary kay, [place] [facility] [place] & [place] 2 15:47:19 Antiphospholip id syndrome 60588414 Active 2021 Mary Baldwin null, [place] & [place] 2 15:48:56 Deep venous thrombosis 622057913 Active 2021 Mary Nicolasa null, [place] & [place] 2 15:49:12 Pulmonary embolism 40666786 Active 2021 Mary Baldwin null[place] & [place] 2 15:49:20 Chronic pain 44182786 Active 2021 Mary Baldwin null[place] 2 15:49:27 Falls 087684388 Active 2021 Marylady Baldwin null, [place] & [place] 2 15:55:23 Problem Notes None recorded. Procedures Surgical History Date Name Laterality Status Provider Name and Address Organization Details Recorded Time 2 venography completed AMRIT GROVE NP [address], [place], [address], [place] [facility] [place] & [place] 02/11/2022 17:09:14 2 insertion of stent in inferior vena cava completed AMRIT GROVE NP [address] [place], [address], [place] [facility] - [place] & [place] 02/11/2022 17:09:42 2 insertion of stent into iliac vein completed AMRIT GROVE NP [address] [facility], [place], [address], [place] - [facility] - [place] & [place] 02/11/2022 17:10:18 3 biopsy of lung completed Antoinette Escalante [place] - [facility] - [place] & [place] 10/28/2023 12:37:32 Imaging Results Imaging Date Name Status LastModified by Organization Details LastModified Time 06/14/2024 imaging interpretation completed [place] [address], [place], [address], 06/20/2024 08:44:38 06/14/2024 imaging interpretation completed [address], [place], [address], 06/20/2024 08:44:34 06/14/2024 imaging interpretation completed [address], [place], [address], 06/20/2024 08:44:30 Procedure Notes None recorded. Medical Equipment None [...] clindamycin /mupirocin/ itraconazol e 150/20/50mg topical capsule [87424] MIX THE CONTENTS OF 1 CAPSULE WITH [...] Address Organization Details Last Updated DateTime 4 175.26 cm 34.7 kg/m2 559303. 21 g 98.2 [degF] 96 % 96 % 83 /min 115 mm[Hg] 77 mm[Hg] [facility]enny byers [place] [facility] [place] 4 14:33:16 Date Recorded Body height Body mass index (BMI) Body weight Body temperature Oxygen saturation Oxygen saturation in Arterial blood by Pulse oximetry Heart rate Systolic blood pressure Diastolic blood pressure Provider Name and Address Organization Details Last Updated DateTime 4 175.26 cm 35.6 kg/m2 014612. 76 g 98.2 [degF] 97 % 97 % 73 /min 130 mm[Hg] 78 mm[Hg] Benny Virgen modesta [facility] & [place] 4 10:19:46 Date Recorded Body height Body mass index (BMI) Body weight Body temperature Oxygen saturation Oxygen saturation in Arterial blood by Pulse oximetry Heart rate Systolic blood pressure Diastolic blood pressure Provider Name and Address Organization Details Last Updated DateTime 4 175.26 cm 36.6 kg/m2 511892. 91 g 98.2 [degF] 96 % 96 % 82 /min 127 mm[Hg] 83 mm[Hg] Benny Virgen [place] - [place] [facility] & [place] 4 10:01:47 Date Recorded Body height Body mass index (BMI) Body weight Body temperature Oxygen saturation Oxygen saturation in Arterial blood by Pulse oximetry Heart rate Respiratory rate Systolic blood pressure Diastolic blood pressure Provider Name and Address Organization Details Last Updated DateTime 5 175.26 cm 37.4 kg/m2 537993. 87 g 98.4 [degF] 99 % 99 % 89 /min 18 /min 145 mm[Hg] 95 mm[Hg] Mynro Pratt [facility] & [place] 5 14:12:48 Date Recorded Systolic blood pressure Diastolic blood pressure Provider Name and Address Organization Details Last Updated DateTime 06/05/2024 132 mm[Hg] 88 mm[Hg] AMRIT GROVE NP [address] [place] [address], [address], [facility] & [place] 06/11/2024 14:32:20 Date Recorded Body height Body mass index (BMI) Body weight Body temperature Oxygen saturation Oxygen saturation in Arterial blood by Pulse oximetry Heart rate Systolic blood pressure Diastolic blood pressure Provider Name and Address Organization Details Last Updated DateTime 5 175.26 cm 37.2 kg/m2 267417. 28 g 97.9 [degF] 97 % 97 % 85 /min 131 mm[Hg] 94 mm[Hg] Benny Parker n [place] - [facility] & [place] 12:42:04 Social History Question Answer Notes LastModified by Organizat ion Details LastModified Time Tobacco Smoking Status Never Smoker Dorie Martínez null, [facility] & [place] 02/06/2022 11:32:31 Do You Have An Advance Directive? No Information n ot available 10/28/2022 Do You Wear A Helmet When Biking? Yes [email or web address] Information not available 06/05/2024 Are You Blind Or Do You Have Difficulty Seeing? No Information n ot available 10/28/2022 What Is Your Level Of Caffeine Consumption? Occasional [email or web address] Information not available 05/14/2023 In The 14 Days Before Symptom Onset, Have You Had Close Contact With A Laboratory-confirm ed COVID-19 While That Case Was Ill? No [email or web address] Information n ot available 06/05/2024 In The 14 Days Before Symptom Onset, Have You Had Close Contact With A Person Who Is Under Investigation For COVID-19 While That Person Was Ill? No [email or web address] Information not available 06/05/2024 Have You Been To An Area Known To Be High Risk For COVID-19? No [email or web address] Information not available 06/05/2024 Are You Deaf Or Do You Have Serious Difficulty Hearing? No [email or web address] Information not available 06/05/2024 What Type Of Diet Are You Following? REGULAR Information n ot available 06/05/2024 Have You Processed Blood Or Body Fluids From An Ebola Virus Disease Patient Without Appropriate PPE? No [email or web address] Information not available 06/05/2024 Do You Reside In Or Have You Traveled To An Area Where Ebola Virus Transmission Is Active? No [email or web address] Information not available 06/05/2024 Have There Been Any Changes To Your Family Or Social Situation? No [email or web address] Information no t available 06/05/2024 What Is The Fluoride Status Of Your Home? Unknown [email or web address] Information not available 06/05/2024 Are There Any Guns Present In Your Home? No [email or web address] Information not available 06/05/2024 Have You Recently Or Are You Planning To Travel To An Area With Zika Virus? No [email or web address] Information not available 06/05/2024 Do You Use Insect Repellent Routinely? Yes [email or web address] Information not available 06/05/2024 Do You Feel Safe At Home? Yes Information not available 06/05/2024 Do You Have A Medical Power Of Supervisor [place]? No [email or web address] Information not available 06/05/2024 What Was The Date Of Your Most Recent Tobacco Screening? 08/02/2024 [email or web address] Information not available 08/02/2024 Do You Have Any Pets? No [email or web address] Information not available 06/05/2024 Do You Use Your Seat Belt Or Car Seat Routinely? Yes [email or web address] Information not available 06/05/2024 Do You Have Smoke And Carbon Monoxide Detectors In Your Home? Yes Information not available 06/05/2024 Are You Passively Exposed To Smoke? No Information no t available 10/28/2022 Do You Use Sunscreen Routinely? Yes [email or web address] Information not available 06/05/2024 Has Tobacco Cessation Counseling Been Provided? Yes [email or web address] Information not available 06/05/2024 On What Date Was Tobacco Cessation Counseling Provided? 08/02/2024 [email or web address] Information not available 08/02/2024 Do You Have Difficulty Walking Or Climbing Stairs? No Information not available 06/05/2024 Are You Currently In School? No [email or web address] Information not available 06/05/2024 Sex: Unknown Functional Status Question Answer Note LastModified by Organizat ion Details LastModified Time Do you use any illicit or recreational drugs? No Information not available 03/19/2022 Do you or have you ever used any other forms of tobacco or nicotine? No Information not available 05/14/2023 What is your level of alcohol consumption? None Information not available 03/19/2022 Are you currently employed? Yes [email or web address] Information not available 06/05/2024 Do you have transportation difficulties? No [email or web address] Information not available 06/05/2024 Are you able to walk? YESWOREST [email or web address] Information not available 06/05/2024 Do you have difficulty doing errands alone? No [email or web address] Information not available 06/05/2024 Are you able to care for yourself? Yes Information n ot available 06/05/2024 Do you have difficulty dressing or bathing? No [email or web address] Information not available 06/05/2024 What is your exercise level? Occasional Information not available 10/28/2022 Mental Status Question Answer Note LastModified by Organizat ion Details LastModified Time Do you feel stressed (tense, restless, nervous, or anxious, or unable to sleep at night)? [id number] Information not available 10/28/2022 Do you have difficulty concentrating, remembering or making decisions? No [email or web address] Information no t available 06/05/2024 Family History Relationship Description Onset Age of this Age Resolved Age Notes LastModified by Organization Details LastModified Time Mother Essential hypertension [email or web address] Not available 01/2022 11:32:23 Father Essential hypertension [email or web address] Not available 01/2022 11:32:23 Unspecified Relation Diabetes mellitus [email or web address] Not available 2023 12:38:30 Medical History Condition Response Other Y Clotting Disorder Y Autoimmune disease Y Obesity Y High Cholesterol Y Rheumatoid Arthritis Y Lupus Y Immunizations Vaccine Type Date Status Note Provider Nam e and Address Organization Details Recorded Time MMR 6 completed Mary kay, [place] - [facility] - [place] & [place] 03/19/2022 15:45:22 Td (adult) 2 completed Mary kay, [place] - [facility] - [place] & [place] 03/19/2022 15:45:22 Td (adult), 2 Lf tetanus toxoid, preservative free, adsorbed 3 completed [place] M[place] - [facility] - [place] & [place] 03/19/2022 15:45:22 Tdap 8 completed Mary kay, [place] [facility] [place] & [place] 03/19/2022 15:45:22 Hep B, adolescent or pediatric 3 completed [place] Mtz - [facility] & [place] 03/19/2022 15:45:22 Hep B, adolescent or pediatric 3 completed [facility] & [place] 03/19/2022 15:45:22 Past Encounters Encounter ID Performer Location Encounter Start Date Encounter Closed Date Diagnosis/Indication Diagnosis SNOMED-CT Code Diagnosis ICD10 Code Diagnosis Note [id number] [address] [address] 03/19/2022 15:32:51 03/19/2022 16:17:08 Anticoagulant therapy 468444144 Z79.01 recheck lab work todaydenie s signs or symptoms of bleeding lab work drawn in clinic by nell Antiphosph olipid syndrome 71449149 D68.61 recheck lab work todayconti nudelia with current medication s and vein specialist [id number] ANGEL [address] [address] 05/20/2022 12:30:22 05/26/2022 10:43:53 Chronic pain 20276622 G89.29 Patient presents for {{treatmen t follow up*}} of general chronic pain. Based on patient history, physical exam, and previous treatments , I recommend continuing current treatment regimen. Weight loss {{is* is not}} recommende d at this time. Discussed treatment plan and instructio ns with patient. Anticoagulant therapy 18 2367847 Z79.01 recheck lab work todaydenie s signs or symptoms of bleeding lab work drawn in clinic by jalex Antiphosph olipid syndrome 50484213 D68.61 recheck lab work todayconchucho aly with current medication s, vascular and rheumatolo gy follow up Prediabetes 368503534 R7 3.03 awaiting [email or web address] forced diet and lifestyle changes Fall R29.6 fall, in driveway, landed on right legcontinu es to ambulate with canehigh risk for falls and injuryPT tried and failed Lupus anti coagulant disorder 27570313 D68.62 continue current medication s and follow up as recommend Hyperlipidemia 36364414 E78.5 [id number] AMRIT GROVE NP [address] [place] [address] 08/18/2022 12:32:34 08/18/2022 13:34:20 Antiphospholipid syndrome 83740286 D68.61 continue with anticoagul ation; high risk for recurrent thrombosis Chronic pain 74698086 G8 9.29 Patient presents for {{treatmen t follow up*}} of general chronic pain. Based on patient history, physical exam, and previous treatments , I recommend continuing current treatment regimen as pain is chronic, and likely to continue to get worse due to multiple comorbidit ies. Lupus anti coagulant disorder 65915583 D68.62 continue with rheumatolo gymedicati on as prescribed Falls 578116001 R29.6 fall prevention discussedb alance of immobility vs falling Vitamin D deficiency 347 96648 E55.9 recheck today Elevated blood-pressure reading without diagnosis of hypertension 407187235 R03.0 discussed risk r/t lupus2 weeks of home BP readings and call me with thoseconsi jef UA to look for hematuria and proteinuri a as risk for renal involvemen t with lupus Anemia 296702009 D64.9 recheck today Anticoagulant therapy 18 9997445 Z79.01 check PT/INR todaycurre ntly on 7.5 mg once daily of warfarin therapyris k vs benefit; monitor for bleeding [id number] AMRIT GROVE NP [address] [place] [address] 10/21/2022 12:37:03 10/21/2022 13:25:34 Liver enzymes level above reference range 164173228 R74.01 denies abdominal pain; recheck liver enzymes today Antiphosph olipid syndrome 26213959 D68.61 continue with anticoagul ation; high risk for recurrent thrombosis Chronic pain 99424206 G8 9.29 Patient presents for {{treatmen t follow up*}} of general chronic pain. Based on patient history, physical exam, and previous treatments , I recommend continuing current treatment regimen as pain is chronic, and likely to continue to get worse due to multiple comorbidit ies. Lupus anti coagulant disorder 59932750 D68.62 continue with rheumatolo gymedicati on as prescribed Falls 784759519 R29.6 fall prevention discussedb alance of immobility vs falling Elevated blood-pressure reading without diagnosis of hypertension 542224652 R03.0 discussed risk r/t lupusconsi jef UA to look for hematuria and proteinuri a as risk for renal involvemen t with lupus Anticoagulant therapy 18 9834823 Z79.01 check PT/INR todaycurre ntly on 6.5 mg once daily of warfarin therapyris k vs benefit; monitor for bleeding Body mass index 40+ - severely obese 324927830 Z68.41 Patient advised to eat a prudent diet and lose weight as appropriat e.lifestyl e changeslim ited ability to exerciseli mited medication options due to drug to drug interactio ns [id number] AMRIT GROVE, ANGEL [address] [place] [address] 12/17/2022 14:59:11 12/17/2022 16:03:37 Antiphospholipid syndrome 98344677 D68.61 continue with anticoagul ation; high risk for recurrent thrombosis Chronic pain 48138310 G8 9.29 Patient presents for {{treatmen t follow up*}} of general chronic pain. Based on patient history, physical exam, and previous treatments , I recommend continuing current treatment regimen as pain is chronic, and likely to continue to get worse due to multiple comorbidit ies. Lupus anti coagulant disorder 16042987 D68.62 continue with rheumatolo gymedicati on as prescribed Falls 694133079 R29.6 fall prevention discussedb alance of immobility vs falling Elevated blood-pressure reading without diagnosis of hypertension 196765018 R03.0 discussed risk r/t lupusconsi jef UA to look for hematuria and proteinuri a as risk for renal involvemen t with lupuspt will monitor at homediscus sed goal of less than 130/90 Anticoagulant therapy 18 0955596 Z79.01 check PT/INR todaycurre ntly on 6 mg once daily of warfarin therapyris k vs benefit; monitor for bleeding Body mass index 40+ - severely obese 819370036 Z68.41 continue with high protein, low carb; limit sweets and sugary beverages [id number] Reji Cobos MD [place] [address] [place] [address] 02/15/2023 14:00:39 02/15/2023 15:13:25 Antiphospholipid syndrome 48048695 D68.61 continue with anticoagul ation; high risk for recurrent thrombosis Chronic pain 73395298 G8 9.29 Patient presents for {{treatmen t follow up*}} of general chronic pain. Based on patient history, physical exam, and previous treatments , I recommend continuing current treatment regimen as pain is chronic, and likely to continue to get worse due to multiple comorbidit ies. called all pharmacies in [place] who are out of 10 mg hydrocodon e Lupus anti coagulant disorder 33761265 D6862 continue with rheumatolo gymedicati on as prescribed consider UA to look for hematuria and proteinuri a as risk for renal involvemen t with lupus Falls 461198177 R29.6 fall prevention discussedb alance of immobility vs falling Anticoagulant therapy 18 6102257 Z79.01 check PT/INR todaycurre ntly on once daily of warfarin therapyris k vs benefit; monitor for bleeding Body mass index 40+ - severely obese 552643412 Z68.41 continue with high protein, low carb; limit sweets and sugary beverages Essential hypertension 49529069 I10 educated on goal of less than 130/90advi sed low sodium diet, healthy lifestyle including exercise as ableER if any symptoms such as chest pain, shortness of breathPres cribed losartan. [id number] Reji Cobos MD [facility] [address] [place] [address] 05/14/2023 09:28:29 05/14/2023 10:13:36 Antiphospholipid syndrome 18608366 D68.61 continue with anticoagul ation; high risk for recurrent thrombosis Chronic pain 28564735 G8 9.29 Patient presents for {{treatmen t follow up*}} of general chronic pain. Based on patient history, physical exam, and previous treatments , I recommend continuing current treatment regimen as pain is chronic, and likely to continue to get worse due to multiple comorbidit ies. not controlled , limited ADLs Lupus anti coagulant disorder 24798915 D6862 continue with rheumatolo gymedicati on as prescribed continues to have daily limitation s, easily fatigued, feels anxiety and depression r/t disease process, inability to do the things he wants to such as work and provide for family Falls 429195482 R29.6 fall prevention discussedb alance of immobility vs falling Essential hypertension 34304347 I10 educated on goal of less than 130/90advi sed low sodium diet, healthy lifestyle including exercise as ableER if any symptoms such as chest pain, shortness of breathcont inue losartan therapymee ting goal Anticoagulant therapy 18 1816750 Z79.01 check PT/INR todaycurre ntly on once daily of warfarin therapy 6 mgrisk vs benefit; monitor for bleeding Body mass index 40+ - severely obese 395041642 Z68.41 continue with high protein, low carb; limit sweets and sugary beverages Mixed anxi ety and depressive disorder 704178480 F41.8 reviewed [id number] les with chronic disease, inability to provide for his family or do the things other dads do due to falls, chronic fatigue, chronic paindenies SI/HI Acute pharyngitis 064580 003 J02.9 exposure to strep by sonsore throatwarm salt water garglescha nge toothbrush hydrations ymptomatic management f/u if symptoms persist or worsen [id number] Reji Cobos MD [facility] [address] [place], [place] [address] 07/13/2023 10:59:23 07/13/2023 12:29:39 Antiphospholipid syndrome 36133458 D68.61 continue with anticoagul ation; high risk for recurrent thrombosis Chronic pain 35737057 G8 9.29 Patient presents for {{treatmen t follow up*}} of general chronic pain. Based on patient history, physical exam, and previous treatments , I recommend continuing current treatment regimen as pain is chronic, and likely to continue to get worse due to multiple comorbidit ies. not controlled , limited ADLs; continues to struggle with falls, chronic leg weakness Anticoagulant therapy 18 7034652 Z79.01 check PT/INR todaycurre ntly on once daily of warfarin therapy 6 mgrisk vs benefit; monitor for bleeding Medication monitoring 39 5824982 Z51.81 CMP to be completed after 6 weeks on terbinafin e therapy Pain of le ft hip joint 5561308609 00672 M25.552 f/u if symptoms persist; may need imaging due to frequent fall, possible injury Neuropathy 074555073 G62 .9 risk vs benefitdai ly leg and feet check for woundsgaba pentin therapy as prescribed [id number] AMRIT GROVE NP [facility] [address] [facility] [place] [address] 09/22/2023 14:02:14 09/22/2023 15:43:43 Antiphospholipid syndrome 68126994 D68.61 continue with anticoagul ation; high risk for recurrent thrombosis Chronic pain 45078975 G8 9.29 Patient presents for {{treatmen t follow up*}} of general chronic pain. Based on patient history, physical exam, and previous treatments , I recommend continuing current treatment regimen as pain is chronic, and likely to continue to get worse due to multiple comorbidit ies. not controlled , limited ADLsKasper UTDrisk versus benefit of medication Lupus anti coagulant disorder [id number] D68.62 continue with rheumatolo gymedicati on as prescribed continues to have daily limitation s, easily fatigued, feels anxiety and depression r/t disease process, inability to do the things he wants to such as work and provide for family Falls [id number] R29.6 fall prevention discussedb alance of immobility vs fallinguse of cane or walker Essential hypertension [id number] I10 educated on goal of less than 130/90advi sed low sodium diet, healthy lifestyle including exercise as ableER if any symptoms such as chest pain, shortness of breathcont inue losartan therapymee ting goal Anticoagulant therapy 18 9939467 Z79.01 check PT/INR todaycurre ntly on once daily of warfarin therapy 6 mgrisk vs benefit; monitor for bleeding Mixed anxi ety and depressive disorder [id number] F41.8 reviewed PHQ9 which is a 7, but no medication interventi on at this timestrugg les with chronic disease, inability to provide for his family or do the things other dads do due to falls, chronic fatigue, chronic paindenies SI/HI [id number] AMRIT GROVE NP [facility] [address] [place] [address] 11/22/2023 10:09:56 11/22/2023 10:44:52 Antiphospholipid syndrome 30802102 D68.61 continue with anticoagul ation; high risk for recurrent thrombosis Chronic pain 42611544 G8 9.29 Patient presents for {{treatmen t follow up*}} of general chronic pain. Based on patient history, physical exam, and previous treatments , I recommend continuing current treatment regimen as pain is chronic, and likely to continue to get worse due to multiple comorbidit ies. moderate control of pain,limit ed ADLsKasper UTDrisk versus benefit of medication Lupus anti coagulant disorder 31580190 D68.62 needs referralme dication as prescribed Falls [id number] R29.6 fall prevention discussedb alance of immobility vs fallinguse of cane or walker Essential hypertension 76116290 I10 educated on goal of less than 130/90advi sed low sodium diet, healthy lifestyle including exercise as ableER if any symptoms such as chest pain, shortness of breathcont inue losartan therapymee ting goal Anticoagulant therapy 18 6796247 Z79.01 check PT/INR todaycurre ntly on once daily of warfarin therapy 6 mgrisk vs benefit; monitor for bleeding Mixed anxi ety and depressive disorder 408574882 F41.8 no medication interventi on at this timestrugg les with chronic disease, inability to provide for his familyreco mmend therapyden ies SI/HI Mixed hyperlipidemia 267 706390 E78.2 Patient advised to exercise, eat a prudent diet and lose weight as appropriat e. Body mass index 30+ - obesity 287733566 Z68.34 lifestyle changes as able [id number] AMRIT GROVE NP [address] [place] [address] 01/21/2024 09:56:33 01/21/2024 10:16:12 Long-term current use of anticoagulant 376560076 Z79.01 awaiting PT and INR recheck todaycurre ntly on warfarin 6 mg once daily Chronic pain 41395396 G8 9.29 Patient presents for {{treatmen t follow up*}} of general chronic pain. Based on patient history, physical exam, and previous treatments , I recommend continuing current treatment regimen as pain is chronic, and likely to continue to get worse due to multiple comorbidit ies. moderate control of pain,limit ed ADLsKasper UTDrisk versus benefit of medication [id number] AMRIT GROVE NP [address] [place] [address] 06/05/2024 14:02:00 06/05/2024 14:45:18 Long-term drug therapy [id number] Z79.891 labs drawn by [place], left hand, patient tolerated well Long-term current use of anticoagulant 285167141 Z79.01 awaiting PT and INR recheck todaycurre ntly on warfarin 6 mg once daily Neuropathy 897818189 G62 .9 risk vs benefitdai ly leg and feet check for woundsgaba pentin therapy as prescribed Chronic pain 73191684 G8 929 Patient presents for {{treatmen t follow up*}} of general chronic pain. Based on patient history, physical exam, and previous treatments , I recommend continuing current treatment regimen as pain is chronic, and likely to continue to get worse due to multiple comorbidit ies. moderate control of pain,limit ed ADLsKasper UTDrisk versus benefit of medication Essential hypertension 93227003 I10 educated on goal of less than 130/90advi sed low sodium diet, healthy lifestyle including exercise as ableER if any symptoms such as chest pain, shortness of breathcont inue losartan therapy Vitamin D deficiency 347 56360 E55.9 recheck today Scleroderma 499543189 M3 4.9 Continue follow-up with Rheumatjami garza for scleroderm a and lupus, antiphosph olipid [id number] AMRIT GROVE NP [facility] [address] [place] [address] 08/02/2024 12:36:02 08/03/2024 11:12:51 Antiphospholipid syndrome 09068620 D68.61 continue with anticoagul ation; high risk for recurrent thrombosis Diagnosed in teenage years, tried and failed Xarelto and Eliquis therapy, followed by Rheumatjami garza Chronic pain 80035183 G8 9.29 Patient presents for {{treatmen t follow up*}} of general chronic pain. Based on patient history, physical exam, and previous treatments , I recommend continuing current treatment regimen as pain is chronic, and likely to continue to get worse due to multiple comorbidit ies. moderate control of pain,limit ed ADLsKasper UTDrisk versus benefit of medication Lupus anti coagulant disorder 04000326 D68.62 continue follow-up with Rheumatolo gy Diabetes m ellitus screening 473356782 Z13.1 Long-term current use of anticoagulant 925271886 Z79.01 awaiting PT and INR recheck todaycurre ntly on warfarin 6 mg once daily Vitamin D deficiency 347 76013 E55.9 recheck today, taking supplement ation Essential hypertension 86562027 I10 educated on goal of less than 130/90advi sed low sodium diet, healthy lifestyle including exercise as ableER if any symptoms such as chest pain, shortness of breathcont inue losartan therapy Health Concerns Section Related Observation LastModified by Organization Detai ls LastModified Time None Recorded Concern Status LastModified by Organization Details LastModified Time None Recorded Advance Directives Directive N: Payers Insurance Date Sequence Insurance Name Policy Number Policy Gaspar Covered Member ID Gaspar Member ID Guarantor Name 07/30/2024 1 UMR [id number] Maria Victoria Robledo [id number] Glen Robledo 07/07/2024 1 [place] [id number] Glen Robledo [id number] Glen Robledo 07/30/2024 2 [facility] (MEDICAID HMO) Glen Robledo [id number] Glen Robledo 07/07/2024 4 [place] - FFS/TRADITION AL Glen Robledo [id number] Glen Robledo 07/07/2024 1 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 Needs lab work repeated today including his PT/INR. Denies any bleeding. Reports always to have bruising even if PT/INR in appropriate range. Currently on 6 mg of warfarin daily. Tried and failed xarelto and eliquis in the past with DVT. Continues to walk with cane and/or walker. Falls approx 3 times or morea month due to legs giving out, weakness. Has chronic pain of raine legs, wears rubber compression daily to help with swelling and chronic DVT. Taking pain medications as prescribed including gabapentin and hydrocodone. Was in pain management for several years before nothing else they could do so PCP at that time Bernadine took over patient medication. Followed by:rheumatology- had appointment last week and blood work was completed. [facility]- currently tx for posterior tibial tendon dysfunction; wears braces; Dr. Medeiros; has tried multiple injections without improvement He has been trying to work on his weight with his diet by limiting processed food, eating more whole foods. He is unable to exercise due to falls and leg weakness. finished his course of terbinafine. 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 Needs lab work repeated today including his PT/INR. Denies any bleeding. Reports always to have bruising even if PT/INR in appropriate range, currently bruising of abdomen and legs. Currently on 6 mg of warfarin daily. Tried and failed xarelto and eliquis in the past with DVT. Continues to walk with cane and/or walker. Falls approx 3 times or more times a month due to legs giving out, weakness. Has chronic pain of raine legs, wears rubber compression daily to help with swelling and chronic DVT. Taking pain medications as prescribed including gabapentin and hydrocodone. Was in pain management for several years before nothing else they could do so PCP at that time Colindres, took over patient medication. Pill counts correct, CSA and UDS are UTD. Followed by:rheumatology-provid er left practice, needs new rheumatologistneurolog y- Sakina, will request records, unsure when he [facility]- javi Kapoor seen for awhile, will check to see when f/u is duepodiatry- currently tx for posterior tibial tendon dysfunction- Sakina Soni He has been trying to work on his weight with his diet by limiting processed food, eating more whole foods. He is unable to exercise due to falls and leg weakness. Continues to have to take terbinafine, 10 days at the start of each month.continues to have some anxiety depression around inability to bees like most dad's his age but denies any need for medication at this time, coping well with spending time with his family as he is able. Has good support with his and parents. Denies any SI/HI. AMRIT GROVE NP [address] [place], [address], [facility] & [place] 11/25/2023 10:28:14 01/21/2024 text/html 33-year-old male who presents for his 2 month follow-up for chronic pain in to recheck his PT and INR. Taking medication as prescribed. Denies any side effects. Currently on warfarin 6 mg once daily. 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 Since last office visit he has been seen by Rheumatology twice. Also diagnosed with scleroderma. Medication list reviewed. Doing well with losartan for his blood pressure. His eye exam is up-to-date on Plaquenil therapy. Needs refill on his hydrocodone and gabapentin therapy he has not been on his vitamin-D therapy. Continues to wear his compression daily. Current dosing of warfarin to 6 mg once daily. AMRIT GROVE NP [address] [place], [phone], [facility] & [place] 06/11/2024 14:34:01 08/02/2024 text/html 33-year-old male with multiple chronic [...] any chest pain or shortness of breath. AMRIT GROVE NP [address] [place] [address], [place], [phone], [facility] & [place] 08/02/2024 13:20:32
--- NOTE | 2024-08-15 13:00 | MR_ITS ---
FINAL REPORT TECHNIQUE: Multiplanar MRI without gadolinium enhancement CLINICAL HISTORY: Ankle Instability. Rolled ankle 8wks ago. bilateral ankle pain and swelling. FINDINGS: Articular cartilage: No focal osteochondral defect Marrow signal: Marrow edema with a linear hypointensity of the cuboid consistent with healing, nondisplaced fracture. Remaining osseous structures are intact. Joint fluid: Small Tendons: No evidence of tear Ligaments: Edema within the tibiofibular syndesmosis with a tear. There is a partial tear of the anterior tibiofibular ligament and talofibular ligament near the fibular attachment. Posterior tibiofibular and talofibular ligaments are intact. There is also edema within the surrounding talocalcaneal ligaments within the subtalar joint space suggestive of tear. Deltoid ligament is intact. Plantar fascia: No evidence of tear or fasciitis. IMPRESSION: Partial tears involving the anterior tibiofibular and talofibular ligaments and syndesmosis. Tear suspect of the talocalcaneal ligaments with significant edema in the subtalar joint. Marrow edema and signal abnormality of the cuboid consistent with healing, nondisplaced fracture Reviewed, Interpreted and Dictated by Ramin Kuhn MD Transcribed by Amy Chavarria Authenticated and . [facility]
== END 2024-08-15 23:59 | disposition home or self-care (01) ==
LOC: RAD 12:50
PROVIDERS: PCP Nurse Practitioner Family; Visit Provider Podiatrist
DX: S93.432A Sprain of tibiofibular ligament of left ankle, initial encounter (principal); S93.492A Sprain of other ligament of left ankle, initial encounter; S92.212D Displaced fracture of cuboid bone of left foot, subsequent encounter for fracture with routine healing
CPT/HCPCS: 73721

== ENCOUNTER 2024-09-19 15:07 | Outpatient (RCR) | payer OTHER, SELFPAY ==
--- NOTE | 2024-09-20 07:33 | HMH.PTOPEV ---
PT Outpatient Evaluation Rehab PT Outpatient Evaluation Start: 09/19/24 15:10 Freq: Status: Active Protocol: Document 09/19/24 15:10 AROLDO (Rec: 09/20/24 07:33 AROLDO [id number]) E-signed By Ava Barraza, PT Outpatient Therapy Subjective History Subjective History This is an initial PT evaluation for 33 y/o male, Glen Robledo, who presents with referral for bilateral ankle instability, posterior tibial tendon dysfunction, and flat feet. 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 Pt reports he has rolled his ankle a few times leading to weak ankles but does not have issues with any daily tasks. Pt has ankle stability braces that he wears intermittently. Pt reports he was initially told to wear a fx boot but was non-compliant. Pt has been receiving ankle injections. Pt reports he does not need PT as he does not have issues with any tasks or have pain. 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 Pt wishes for HEP only. MRI 08/15: Partial tears involving the anterior tibiofibular and talofibular ligaments and syndesmosis. Tear suspect of the talocalcaneal ligaments with significant edema in the subtalar joint. Marrow edema and signal abnormality of the cuboid consistent with healing, nondisplaced fracture PMH: SLE, lymphedema, APS on warfarin New diagnosis of No cancer in past 12 months? Chief Complaint Weakness Level of pain today 0 (0-10) Pain scale - at its 0 best (0-10) Pain scale - at its 0 worst (0-10) Ankle/Foot Eval Gait Observation General Gait Pattern No Deviations/Normal Observation Assistive Device Ambulation Assistive None Device ROM right Ankle/Foot WNL, pain-free Dorsiflexion w/Knee Flexed Active Range of Motion (degrees) Ankle/Foot Plantar WNL, pain-free Flexion Active Range of Motion (degrees) Ankle/Foot Eversion WNL, pain-free Active Range of Motion (degrees) Ankle/Foot Inversion WNL, pain-free Active Range of Motion (degrees) MMT bilateral Ankle Dorsiflexion 5 Normal Strength Grade Ankle Plantarflexion 5 Normal Strength Grade Foot Eversion 5 Normal Strength Grade Foot Inversion 5 Normal Strength Grade Special Tests Ankle Anterior Negative Right,Positive Left Drawer Test Ankle Eversion Test Negative Left,Negative Right Ankle Posterior Negative Left,Negative Right Drawer Test Foot Compression Negative Left,Negative Right Test Lower Extremity Functional Index Activities Today, do you or would you have any difficulty at all with: a.Any of your usual No difficulty work, housework or school activities b. Your usual No difficulty hobbies, recreational or sporting activities c. Getting into or No difficulty out of the bath d. Walking between No difficulty rooms e. Putting on your No difficulty shoes or socks f. Squatting No difficulty g. Lifting an object No difficulty , like a bag of groceries from the floor h. Performing light No difficulty activities around your home i. Performing heavy No difficulty activities around your home j. Getting into or No difficulty out of a car k. Walking 2 blocks No difficulty l. Walking a mile No difficulty m. Going up or down No difficulty 10 stairs (about 1 flight of stairs) n. Standing for 1 No difficulty hour o. Sitting for 1 No difficulty hour p. Running on even No difficulty ground q. Running on uneven No difficulty ground r. Making sharp No difficulty turns while running fast s. Hopping No difficulty t. Rolling over in No difficulty bed LEFI Score Lower Extremity 80 Functional Index Score Outpatient Therapy Assessment Prognosis Rehab Potential Innapropriate for Skilled Therapy Comment Pt demo'd normal gait, normal B ankle strength, normal B ankle AROM, and a perfect LEFS score. PT provided pt with ankle HEP to strengthen ankles via resistance band therex. Pt not appropriate for skilled PT d/t minimal- no deficits found upon IE and pt not agreeable to attend PT. Outpatient Therapy Plan of Care Addendums This patient is a No candidate for social or vocational rehab ? Patient/Guardian Yes verbally acknowledges understanding of treatment program and consents to further treatment? Patient/Guardian Yes verbally acknowledges understanding of diagnosis, prognosis and goals for treatment? Eval Complexity PT Charges 84628 - Moderate Complexity Shoulder/Elbow Eval Shoulder Objective Measurements Elbow Objective Measurements PHYSICIAN CERTIFICATION: I certify the specified therapy services for Glen Robledo are required, authorized, and reviewed every 30 days.
== END 2024-09-19 23:59 | disposition home or self-care (01) ==
LOC: PT 15:07
PROVIDERS: PCP Nurse Practitioner Family; Visit Provider Podiatrist
DX: M25.372 Other instability, left ankle (principal); M25.371 Other instability, right ankle; M76.821 Posterior tibial tendinitis, right leg; M76.822 Posterior tibial tendinitis, left leg; B35.3 Tinea pedis; M21.41 Flat foot [pes planus] (acquired), right foot; M21.42 Flat foot [pes planus] (acquired), left foot
CPT/HCPCS: 97162

== ENCOUNTER 2024-12-28 12:54 | Emergency (ER) | payer OTHER, SELFPAY ==
[2024-12-28 13:04] VITALS: BP 136/99; PULSE 73; RESP 18; TEMP 36.7; O2SAT 100; BMI 36.9
--- NOTE | 2024-12-28 13:12 | XR_ITS ---
FINAL REPORT CLINICAL HISTORY: laceration, smashed with hammer COMPARISON: None FINDINGS: 3 views of the right hand 2nd digit were obtained. There is no acute fracture or dislocation. The joint spaces are intact. Diffuse soft tissue edema is noted. There is overlying bandage. No radiopaque foreign body identified. IMPRESSION: Soft tissue edema with no acute bony abnormality. Reviewed, Interpreted and Dictated by Handy Yanes MD Transcribed by Love Henriquez Authenticated and [facility]
--- OUTSIDE RECORDS SUMMARY | 2024-12-28 13:18 | XMS_ITS | Clinical Summary ---
Author Organization [facility] Address [address] [place] [address] Care Team Providers Care Executive Candidate Developer Name Role Phone Vinny Jimenez MD Primary Care Provider [phone] Social History Tobacco Use Types Packs/Day Years Used Date Smoking Tobacco: Former Sex and Gender Information Value Date Recorded Sex Assigned at Not on file Legal Sex Male 6:23 PM EDT Gender Identity Not on file Sexual Orientation Not on file Last Filed Vital Signs Vital Sign Reading Time Taken Comments Blood Pressure - - Pulse - - Temperature - - Respiratory Rate - - Oxygen Saturation - - Inhaled Oxygen Concentration - - Weight 101 kg (222 lb 0.1 oz) 08/24/2013 1:03 PM EDT Height 175.3 cm (5' 9 ) 08/24/2013 1:03 PM EDT Body Mass Index 32.78 08/24/2013 1:03 PM EDT Plan of Treatment Health Maintenance Due Date Last Done Comments [facility]-Depression Screening 1990 [facility]-Infant/Child/Adol SDOH Screenings 1990 [facility]-Varicella Vaccines (1 of 2 - 13+ 2-dose series) 10/16/2003 [facility]- SDOH Screenings 2008 [facility]-Adult SDOH Screenings 2008 [facility]-DTaP,Tdap,and Td Vaccine s (1 - Tdap) 2009 [facility]-Hepatitis B Vaccines (1 of 3 - 19+ 3-dose series) 2009 HPV Vaccines (1 - 3-dose SCD M series) 2017 SYN-JAEDX-95 Vaccine (1 - 20 24-25 season) 2024 [facility]-Influenza Vaccine (#1) 2024 [facility]-Zoster Vaccines (1 of 2) 2040 [facility]-HIB Vaccines Aged Out No longer e ligible based on patient's age to complete this topic [facility]-Hepatitis A Vaccines Aged Out No longer eligible based on patient's age to complete this topic [facility]-IPV Vaccines Aged Out No longer e ligible based on patient's age to complete this topic [facility]-Pneumococcal Vaccine: Pediatrics (0 to 5 Years) and At-Risk Patients (6 to 49 Years) Aged Out No long er eligible based on patient's age to complete this topic [facility]-Rotavirus Vaccines Aged Out No lo nger eligible based on patient's age to complete this topic Care Teams Executive Candidate Developer Relationship Specialty Start Date End Date Vinny Jimenez MD [address] [facility] [address], [place] [address] PCP - General 08/09/20
--- OUTSIDE RECORDS SUMMARY | 2024-12-28 13:18 | XMS_ITS | Clinical Summary ---
[facility] Organization [facility] Address [address] [place] [address] Care Team Providers Care Brine Tank Operator Name Role Phone Unavailable Primary Care Provider Unavailabl e Social History Tobacco Use Types Packs/Day Years Used Date Smoking Tobacco: Never Assessed Abuse Screen Answer Date Recorded Unsafe at Home or Work/School Not on file Feels Threatened by Someone? Not on file 01/2023 Does Anyone Keep You from Co ntacting Others or Doint Things Outside the Home? Not on file 01/06/2023 Physical Sign of Abuse Present Not on file 1 Housing Stability Answer Date Recorded Current Living Arrangements Not on file 12/27 Potentially Unsafe Housing Conditions Not on sreekanth e 01/06/2023 Family and Community Support Answer Cesar e Recorded Help with Day-to-Day Activities Not on file 01/06/2023 Lonely or Isolated Not on file 01/06/2023 Employment Answer Date Recorded Do you want help finding or keeping work or a lawanda b? Not on file 01/06/2023 Disabilities Answer Date Recorded Concentrating, Remembering, or Making Decisions Difficulty Not on file 01/06/2023 Doing Errands Independently Difficulty Not on fi le 01/06/2023 Education Answer Date Recorded Help with school or training? Not on file Preferred Language Not on file 01/06/2023 Sex and Gender Information Value Date Recorded Sex Assigned at Not on file Legal Sex Male 11:05 AM EDT Gender Identity Not on file Sexual Orientation Not on file Plan of Treatment Health Maintenance Due Date Last Done Comments ANNUAL PHYSICAL 1990 HEPATITIS C SCREENING 1990 INFLUENZA VACCINE 10/27/2024 TDAP/TD VACCINES (4 - Td or Tdap) 01/01/2032 12/31/2021, 08/31/2017, 08/25/2002 Pneumococcal Vaccine 0-49 Aged Out No longer eligible based on patient's age to complete this topic
--- OUTSIDE RECORDS SUMMARY | 2024-12-28 13:18 | XMS_ITS | Data Portability ---
Author Organization KASANDRA TOSIN Cm [facility] Address [address] [place] [address] Care Team Providers Care College Teacher Name Role Phone WEN GROVE Primary Care Provider DEBORAH HAMMOND Assembler Body Assessment No assessment recorded. Plan of Treatment Reminders Order Date Submit Date Provider Last Modified By Organization Details Last Modified Time Details Appointments RHEUM RECHECK 2024 11:30A M DEBORAH HAMMOND MD Not available Not available Not available Lab CMP, serum or plasma 2024 025 [facility], [address] [place] [address], [id number], 10/25/2024 14:53:13 CBC w/ auto diff 2024 025 [facility], [address] [place] [address], [id number], 10/25/2024 13:03:26 urinalys is, complete 2024 025 [email or web address] [facility], [address] [place] [address], [id number], 11/01/2024 08:07:12 ESR (erythro cyte sediment ation rate), blood 2024 025 [facility], [address] [place] [address], [id number], 10/25/2024 13:30:12 C3 (complem ent), serum or plasma 2024 025 [facility], [address] [place] [address], [id number], 10/26/2024 18:32:19 C4 (complem ent), serum or plasma 2024 025 [facility], [address] [place] [address], [id number], 10/26/2024 18:32:18 dsDNA Ab, serum 2024 025 [facility], [address] [place] [address], [id number], 10/28/2024 20:50:19 CBC w/ auto diff 2024 025 [email or web address] [facility] (Lab), [address] [place] [address] [address], [place], [address], 08/01/2024 08:12:44 CMP, serum or plasma 2024 025 [email or web address] [facility] (Lab), [address] [place] [address] [address], [place], [address], 08/01/2024 08:12:44 ESR (erythro cyte sediment ation rate), blood 2024 025 [email or web address] [facility] (Lab), [address] [place] [address] [address], [place], [address], 08/01/2024 08:12:44 C reactive protein, QN, serum or plasma 2024 025 [email or web address] [facility] (Lab), [address] [place] [address] [address], [place], [address], 08/01/2024 08:12:45 CBC w/ auto diff 2024 025 [email or web address] [facility] (Lab), [address], [place], [address], 10/31/2024 08:20:06 CMP, serum or plasma 2024 025 [email or web address] [facility] (Lab), [address] [facility] [address], [place], [address], 10/31/2024 08:20:06 ESR (erythro cyte sediment ation rate), blood [address] (Lab), Suresh[address], [place], [address], 10/31/2024 08:20:06 C reactive protein, QN, serum or plasma [address] (Lab), [address] [facility] [facility] [address], [place], [address], 10/31/2024 08:20:06 CBC w/ auto diff [address] (Lab), [address], [place], [address], 10/31/2024 08:20:06 CMP, serum or plasma [address] (Lab), [address], [place], [address], 10/31/2024 08:20:06 ESR (erythro cyte sediment ation rate), blood [address] (Lab), [address], [place], [address], 10/31/2024 08:20:06 C reactive protein, QN, serum or plasma [address] (Lab), [address] [place] [address] [address], [place], [address], 10/31/2024 08:20:06 CBC w/ auto diff [address] [facility], [address] [place] [address], [id number], 05/22/2024 08:17:35 CMP, serum or plasma [address] [facility], [address] [place] [address], [address], 05/22/2024 08:17:35 ESR (erythro cyte sediment ation rate), blood [address] [facility], [address] [place] [address], [id number], 05/22/2024 08:17:35 C reactive protein, QN, serum or plasma [address] [facility], [address] [place] [address], [address], 05/22/2024 08:17:35 CBC w/ auto diff 2024 025 [facility], [address] [place] [address], [id number], 05/29/2024 08:06:56 CMP, serum or plasma 2024 025 [facility], [address] [place] [address], [id number], 05/29/2024 08:06:52 ESR (erythro cyte sediment ation rate), blood 2024 025 [facility], [address] [place] [address], [address], 05/29/2024 08:06:47 C reactive protein, QN, serum or plasma 2024 025 [facility], [address] [place] [address], [id number], 05/29/2024 08:06:43 C reactive protein, QN, serum or plasma 2024 025 [facility], [address] [place] [address], [address], 06/05/2024 08:06:27 ESR (erythro cyte sediment ation rate), blood 2024 025 [facility], [address] [place] [address], [id number], 06/05/2024 08:06:09 CMP, serum or plasma 2024 025 [facility], [address] [place] [address], [id number], 06/05/2024 08:06:03 CBC w/ auto diff 2024 025 [facility], [address] [place] [address], [address], 06/05/2024 08:05:58 CBC w/ auto diff 2024 025 [facility], [address] [place] [address], [id number], 06/12/2024 08:11:57 CMP, serum or plasma 2024 025 [facility], [address] [place] [address], [address], 06/12/2024 08:11:53 ESR (erythro cyte sediment ation rate), blood 2024 025 [facility], [address] [place] [address], [address], 06/12/2024 08:11:49 C reactive protein, QN, serum or plasma 2024 025 [facility], [address] [place] [address], [address], 06/12/2024 08:11:45 C reactive protein, QN, serum or plasma 2024 025 [facility], [address] [place] [address], [id number], 06/21/2024 08:29:05 ESR (erythro cyte sediment ation rate), blood 2024 025 [facility], [address] [place] [address], [address], 06/21/2024 08:29:01 CMP, serum or plasma 2024 025 [facility], [address] [place] [address], [id number], 06/21/2024 08:28:39 CBC w/ auto diff 2024 025 [facility], [address] [place] [address], [address], 06/21/2024 08:28:36 lupus anticoag ulant, plasma 2023 024 [facility], [address] [place] [address], [address], 02/22/2024 22:55:52 anticard iolipin igg+igm Ab, serum 2023 024 [facility], [address] [place] [address], [address], 02/20/2024 04:51:35 beta-2 glycopro tein 1 Ab, serum 2023 024 [facility], [address] [place] [address], [id number], 02/20/2024 04:41:27 JENNA (antinuc lear antibodi es) titer + pattern, ifa, serum [address] [facility], [address] [place] [address], [address], 04/05/2024 17:28:24 JENNA (antinuc lear antibodi es) panel, serum 2023 [facility], [address] [place] [address], [address], 02/20/2024 10:31:40 C3 (complem ent), serum or plasma 2023 [facility], [address] [place] [address], [address], 02/21/2024 16:04:25 C4 (complem ent), serum or plasma 2023 024 [facility], [address] [place] [address], [id number], 02/21/2024 16:04:28 dsDNA Ab, serum [address] [facility], [address] [place] [address], [id number], 04/05/2024 17:28:24 CBC w/ auto diff 2023 [facility], [address] [place] [address], [address], 02/18/2024 14:11:14 CMP, serum or plasma 2023 [facility], [address] [place] [address], [address], 02/18/2024 20:14:29 ESR (erythro cyte sediment ation rate), blood 2023 [facility], [address] [place] [address], [address], 02/18/2024 14:35:59 C reactive protein, QN, serum or plasma 2023 024 [facility], [address] [place] [address], [address], 02/18/2024 20:14:31 rf (rheumat oid factor), serum 2023 024 [facility], [address] [place] [address], [address], 02/18/2024 20:14:28 ccp (cyclic citrulli nated peptide) iga+igg, serum 2023 [facility], [address] [place] [address], [address], 02/23/2024 16:08:06 urinalys is complete , reflex culture 2023 024 [facility], [address] [place] [address], [address], 02/18/2024 14:38:24 Referral vascular surgeon referral 2024 025 [email or web address] Alfredo Myers MD, [address] [place] [address], [place], [address], 07/28/2024 15:27:55 Procedures None recorded . Surgeries None recorded . Imaging XR, lumbosac ral spine, 2 or 3 view 2023 024 [facility], [address] [place] [address] , [place], [address], 02/18/2024 13:51:56 XR, knee, 1 or 2 view 2023 024 [facility], [address] [place] [address] , [place], [address], 02/18/2024 14:07:07 XR, ankle, 2 view 2023 024 [facility], [address], [place], [address], 02/18/2024 14:07:47 Medication Orders hydroxyc hloroqui ne 200 mg tablet 2024 025 [facility], [address] [place] [address] [place], [id number], 10/27/2024 16:16:46 leflunom nolberto 20 mg tablet 2024 025 [facility], [address] [place] [address] [address] [place] [address], [id number], 10/27/2024 16:16:46 hydroxyc hloroqui ne 200 mg tablet 2024 025 [facility], [address] [place] [address] [address] [place], [id number], 09/05/2024 16:15:20 leflunom nolberto 20 mg tablet 2024 025 [facility], [address] [place] [address] [place], [id number], 09/05/2024 16:15:19 hydroxyc hloroqui ne 200 mg tablet 2024 025 [facility], [address] [place] [address] [place], [id number], 06/16/2024 17:09:19 leflunom nolberto 20 mg tablet 2024 025 [facility], [address] [place] [address] [place], [id number], 06/23/2024 08:31:40 hydroxyc hloroqui ne 200 mg tablet 2023 024 [facility], [address] [place] [address] [place], [id number], 03/16/2024 16:38:26 leflunom nolberto 20 mg tablet 2023 024 [facility], [address] [place] [address] [address] [place], [id number], 06/16/2024 17:09:22 Patient TargetsNo targets recorded. Patient Instructions Encounter Date Encounter Id Patient Instructions Last Modified By Organization Details Last Modified Time 02/18/2024 [id number] medical record request* - Please send MRI of the ankles, X rays of the ankles, last office notes Not available 03/17/2024 08:52:35 medical record request* - Please send last office visit notes. Not available 03/17/2024 08:52:35 medical record request* - Please get the last office notes from Asya Rodríguez and Dr. Young at [facility]. Please send labs from initial visit with Dr. Young. Not available 03/17/2024 08:52:35 I spent >60 minutes caring for the patient today with direct counseling, coordinating care, extensive review of outside records, medication management, and documentation. [email or web address] Not available 02/19/2024 13:06:00 07/25/2024 [id number] medical record request* - Please send last labs done in April [email or web address] Not available 08/01/2024 08:14:09 Reason for Referral Vascular Surgeon Referral fo r Peripheral venous insufficiency Referring Physician: Deborah Hammond, Rheumatology, Encounter Date: 07/25/2024 Results Created Date Observation Date Name Description Value Unit Range Abnormal Flag Note LastModifiedBy Organization Detail LastModifiedTime 02/18/20 24 02/18/2024 COMPL ETE BLOOD COUNT white blood cells 5.3 10*3/ uL 3.8-10 .8 normal Not Available [facility] [address] [place], [address], 02/18/2024 14:11:14 02/18/20 24 02/18/2024 COMPL ETE BLOOD COUNT red blood cells 5.11 10*6/ uL 4.20-5 .80 normal Not Available [facility] [address] [place] [address], [address], 02/18/2024 14:11:14 02/18/20 24 02/18/2024 COMPL ETE BLOOD COUNT hemoglobin 15.6 g/dL 14.0-1 8.0 normal Not Available [facility] [address] [place] [address], [id number], 02/18/2024 14:11:14 02/18/20 24 02/18/2024 COMPL ETE BLOOD COUNT hematocrit 45.4 % 40.0-5 2.0 normal Not Available [facility] [address] [place] [address], [address], 02/18/2024 14:11:14 02/18/20 24 02/18/2024 COMPL ETE BLOOD COUNT MCV 89 fL 80-100 normal Not Available [facility] [address] [place] [address], [address], 02/18/2024 14:11:14 02/18/20 24 02/18/2024 COMPL ETE BLOOD COUNT MCH 31 pg 26-35 normal Not Available [facility] [address] [place] [address], [address], 02/18/2024 14:11:14 02/18/20 24 02/18/2024 COMPL ETE BLOOD COUNT MCHC 34 g/dL 32-36 normal Not Available [facility] [address] [place] [address], [address], 02/18/2024 14:11:14 02/18/20 24 02/18/2024 COMPL ETE BLOOD COUNT RDW 13.8 % 11.0-1 5.0 normal Not Available [facility] [address] [place] [address], [address], 02/18/2024 14:11:14 02/18/20 24 02/18/2024 COMPL ETE BLOOD COUNT MPV 8.4 fL 6.2-10 .5 normal Not Available [facility] [address] [place] [address], [address], 02/18/2024 14:11:14 02/18/20 24 02/18/2024 COMPL ETE BLOOD COUNT platelet count 219 10*3/ uL 150-40 0 normal Not Available [facility] [address] [place] [address], [address], 02/18/2024 14:11:14 02/18/20 24 02/18/2024 COMPL ETE BLOOD COUNT neutrophil,a bsolute 3.4 10*3/ uL 1.6-8. 4 normal Not Available [facility] [address] [place] [address], [address], 02/18/2024 14:11:14 02/18/20 24 02/18/2024 COMPL ETE BLOOD COUNT lymphocyte,a bsolute 1.2 10*3/ uL 0.4-5. 1 normal Not Available [facility] [address] [place] [address], [address], 02/18/2024 14:11:14 02/18/20 24 02/18/2024 COMPL ETE BLOOD COUNT monocyte,abs olute 0.6 10*3/ uL 0.0-1. 2 normal Not Available [facility] [address] [place] [address], [address], 02/18/2024 14:11:14 02/18/20 24 02/18/2024 COMPL ETE BLOOD COUNT eosinophil,a bsolute 0.1 10*3/ uL 0.0-0. 8 normal Not Available [facility] [address] [place] [address], [address], 02/18/2024 14:11:14 02/18/20 24 02/18/2024 COMPL ETE BLOOD COUNT basophil,abs olute 0.0 10*3/ uL 0.0-0. 3 normal Not Available [facility] [address] [place] [address], [address], 02/18/2024 14:11:14 02/18/20 24 02/18/2024 COMPL ETE BLOOD COUNT % neutrophils 63.5 % 42.0-7 8.0 normal Not Available [facility] [address] [place] [address], [address], 02/18/2024 14:11:14 02/18/20 24 02/18/2024 COMPL ETE BLOOD COUNT % lymphocytes 23.3 % 11.0-4 7.0 normal Not Available [facility] [address] [place] [address], [address], 02/18/2024 14:11:14 02/18/20 24 02/18/2024 COMPL ETE BLOOD COUNT % monocytes 10.5 % 0.0-11 .0 normal Not Available [facility] [address] [place] [address], [address], 02/18/2024 14:11:14 02/18/20 24 02/18/2024 COMPL ETE BLOOD COUNT % eosinophils 1.8 % 0.0-7. 0 normal Not Available [facility] [address] [place] [address], [address], 02/18/2024 14:11:14 02/18/20 24 02/18/2024 COMPL ETE BLOOD COUNT % basophils 0.9 % 0.0-3. 0 normal Not Available [facility] [address] [place] [address], [address], 02/18/2024 14:11:14 02/18/20 24 02/18/2024 COMPL ETE BLOOD COUNT nucleated red cells 0.1 % 0.0-0. 9 normal Not Available [facility] [address] [place] [address], [address], 02/18/2024 14:11:14 02/18/20 24 02/18/2024 COMPL ETE BLOOD COUNT nucleated RBCs, absolute 0.00 10*3/ uL not estab. normal Not Available [facility] [address] [place] [address], [address], 02/18/2024 14:11:14 02/18/20 24 02/18/2024 ESR, AUTOM ATED ESR, automated 9 mm 0-14 normal Not Available [facility] [address] [place] [address], [address], 02/18/2024 14:35:59 02/18/20 24 02/18/2024 UA WITH CULTU RE IF INDIC ATED color Yellow normal Not Available [facility] [address] [place] [address], [address], 02/18/2024 14:38:24 02/18/20 24 02/18/2024 UA WITH CULTU RE IF INDIC ATED appearance Clear normal Not Available [facility] [address] [place] [address], [address], 02/18/2024 14:38:24 02/18/20 24 02/18/2024 UA WITH CULTU RE IF INDIC ATED glucose Normal mg/dL normal normal Not Available [facility] [address] [place] [address], [address], 02/18/2024 14:38:24 02/18/20 24 02/18/2024 UA WITH CULTU RE IF INDIC ATED bilirubin Negati ve mg/dL negati ve normal Not Available [facility] [address] [place] [address], [address], 02/18/2024 14:38:24 02/18/20 24 02/18/2024 UA WITH CULTU RE IF INDIC ATED ketone Negati ve mg/dL negati ve normal Not Available [facility] [address] [place] [address], [address], 02/18/2024 14:38:24 02/18/20 24 02/18/2024 UA WITH CULTU RE IF INDIC ATED specific gravity 1.028 1.003- 1.035 normal Not Available [facility] [address] [place] [address], [address], 02/18/2024 14:38:24 02/18/20 24 02/18/2024 UA WITH CULTU RE IF INDIC ATED blood Negati ve /uL negati ve normal Not Available [facility] [address] [place] [address], [address], 02/18/2024 14:38:24 02/18/20 24 02/18/2024 UA WITH CULTU RE IF INDIC ATED pH 6 5.0 - 8.0 normal Not Available [facility] [address] [place] [address], [address], 02/18/2024 14:38:24 02/18/20 24 02/18/2024 UA WITH CULTU RE IF INDIC ATED protein Negati ve mg/dL negati ve normal Not Available [facility] [address] [place] [address], [address], 02/18/2024 14:38:24 02/18/20 24 02/18/2024 UA WITH CULTU RE IF INDIC ATED urobilinogen Normal mg/dL normal normal Not Available [facility] [address] [place] [address], [address], 02/18/2024 14:38:24 02/18/20 24 02/18/2024 UA WITH CULTU RE IF INDIC ATED nitrite Negati ve negati ve normal Not Available [facility] [address] [place] [address], [address], 02/18/2024 14:38:24 02/18/20 24 02/18/2024 UA WITH CULTU RE IF INDIC ATED leukocyte esterase Negati ve /uL negati ve normal Not Available [facility] [address] [place] [address], [address], 02/18/2024 14:38:24 02/18/20 24 02/18/2024 UA WITH CULTU RE IF INDIC ATED mucus, urine 4+ /lpf not establ ished normal Not Available [facility] [address] [place] [address], [address], 02/18/2024 14:38:24 02/18/20 24 02/18/2024 UA WITH CULTU RE IF INDIC ATED WBC, urine 0-5 0-5/hp f normal Not Available [facility] [address] [place] [address], [address], 02/18/2024 14:38:24 02/18/20 24 02/18/2024 UA WITH CULTU RE IF INDIC ATED RBC, urine Rare 0-2/hp f normal Not Available [facility] [address] [place] [address], [address], 02/18/2024 14:38:24 02/18/20 24 02/18/2024 UA WITH CULTU RE IF INDIC ATED squamous epi. cells 0-5 0-5/hp f normal Not Available [facility] [address] [place] [address], [address], 02/18/2024 14:38:24 02/18/20 24 02/18/2024 UA WITH CULTU RE IF INDIC ATED crystals 3+ negati ve abnormal [employer] hous Not Available [facility] [address] [place] [address], [address], 02/18/2024 14:38:24 02/18/20 24 02/18/2024 UA WITH CULTU RE IF INDIC ATED crystals Trace negati ve normal Calci um Oxala te Not Available [facility] [address] [place] [address], [address], 02/18/2024 14:38:24 02/18/20 24 02/18/2024 UA WITH CULTU RE IF INDIC ATED reflex culture see below normal UA resul ts do not meet cultu re crite stephanie. Not Available [facility] [address] [place] [address], [address], 02/18/2024 14:38:24 02/18/20 24 02/18/2024 RF SCREE N, QUANT . rf screen, quant. <10.0 [IU]/ mL 0.0-13 .9 normal Not Available [facility] [address] [place] [address], [address], 02/18/2024 20:14:27 02/18/20 24 02/18/2024 COMP. METAB OLIC PANEL glucose 67 mg/dL 74-100 low Not Available [facility] [address] [place] [address], [address], 02/18/2024 20:14:29 02/18/20 24 02/18/2024 COMP. METAB OLIC PANEL blood urea nitrogen 10 mg/dL 6-20 normal Not Available [facility] [address] [place] [address], [address], 02/18/2024 20:14:29 02/18/20 24 02/18/2024 COMP. METAB OLIC PANEL creatinine 0.94 mg/dL 0.70-1 .28 normal Not Available [facility] [address] [place] [address], [address], 02/18/2024 20:14:29 02/18/20 24 02/18/2024 COMP. METAB OLIC PANEL BUN/creatini ne ratio 11 (calc ) 10-20 normal Not Available [facility] [address] [place] [address], [address], 02/18/2024 20:14:29 02/18/20 24 02/18/2024 COMP. METAB OLIC PANEL sodium 142 mmol/ L 136-14 5 normal Not Available [facility] [address] [place] [address], [address], 02/18/2024 20:14:29 02/18/20 24 02/18/2024 COMP. METAB OLIC PANEL potassium 3.7 mmol/ L 3.4-5. 0 normal Not Available [facility] [address] [place], [address], 02/18/2024 20:14:29 02/18/20 24 02/18/2024 COMP. METAB OLIC PANEL chloride 104 mmol/ L 98-107 normal Not Available [facility] [address] [place] [address], [address], 02/18/2024 20:14:29 02/18/20 24 02/18/2024 COMP. METAB OLIC PANEL carbon dioxide 26 mmol/ L 22-31 normal Not Available [facility] [address] [place] [address], [address], 02/18/2024 20:14:29 02/18/20 24 02/18/2024 COMP. METAB OLIC PANEL anion gap 12 (calc ) 7-25 normal Not Available [facility] [address] [place] [address], [address], 02/18/2024 20:14:29 02/18/20 24 02/18/2024 COMP. METAB OLIC PANEL calcium 9.4 mg/dL 8.6-10 .2 normal Not Available [facility] [address] [place] [address], [address], 02/18/2024 20:14:29 02/18/20 24 02/18/2024 COMP. METAB OLIC PANEL total protein 7.0 g/dL 6.4-8. 3 normal Not Available [facility] [address] [place] [address], [address], 02/18/2024 20:14:29 02/18/20 24 02/18/2024 COMP. METAB OLIC PANEL albumin 4.6 g/dL 3.5-5. 2 normal Not Available [facility] [address] [place] [address], [address], 02/18/2024 20:14:29 02/18/20 24 02/18/2024 COMP. METAB OLIC PANEL globulin 2.4 1.5-4. 5 normal Not Available [facility] [address] [place] [address], [address], 02/18/2024 20:14:29 02/18/20 24 02/18/2024 COMP. METAB OLIC PANEL albumin/glob ulin ratio 1.9 (calc ) 1.1-2. 5 normal Not Available [facility] [address] [place] [address], [address], 02/18/2024 20:14:29 02/18/20 24 02/18/2024 COMP. METAB OLIC PANEL bilirubin, total 0.6 mg/dL 0.1-1. 2 normal Not Available [facility] [address] [place] [address], [address], 02/18/2024 20:14:29 02/18/20 24 02/18/2024 COMP. METAB OLIC PANEL alkaline phosphatase 59 U/L 40-129 normal Not Available [facility] [address] [place] [address], [address], 02/18/2024 20:14:29 02/18/20 24 02/18/2024 COMP. METAB OLIC PANEL AST 21 U/L 0-40 normal Not Available [facility] [address] [place] [address], [address], 02/18/2024 20:14:29 02/18/20 24 02/18/2024 COMP. METAB OLIC PANEL ALT 29 U/L 0-41 normal Not Available [facility] [address] [place] [address], [address], 02/18/2024 20:14:29 02/18/20 24 02/18/2024 COMP. METAB OLIC PANEL GFR 110 >= 60 normal NOT E New calcu latio n for GFR (CKD- EPI 2020) is formu lated witho ut race adjus tment facto rs at the recom menda tion of the [employer] and [employer] Nephr ology . This calcu latio n has not been valid ated in pregn ant women . For pedia tric patie nts refer to https ://juve rea.kevin hayes/alphonse calderon s/KDO QI/gf r_cal culat orPed Not Available [facility] [address] [place], [address], 02/18/2024 20:14:29 02/18/20 24 02/18/2024 C REACT CHERRIE PROTE IN C reactive protein 0.08 mg/dL 0.00-0 .49 normal Not Available [facility] [address] [place], [address], 02/18/2024 20:14:31 02/18/20 24 02/20/2024 BETA 2 GLYCO PROTE IN I ABS B2-glycoprot ein I IgG 16.2 U/mL normal Value Inter preta tion ----- ----- ----- ---- < 20.0 Antib lisa not detec saba > or = 20.0 Antib lisa detec saab The antip hosph olipi d antib lisa [...] infor boby hernandez e refer to http: //kim goldman stdia gnost ics.c om/fa q/FAQ 109 (This link is being provi ded for infor [place] [facility]/ educa nevaeh l purpo ses only. ) Not Available [facility] [place], [address], 02/20/2024 04:51:32 02/18/2002/20/2024 BETA 2 GLYCO PROTE [...] infor boby hernandez e refer to http: //[facility] brendan jordanque stdia gnost ics.c om/fa q/FAQ 109 (This link is being provi ded for infor [place] [facility]/ educa nevaeh l purpo ses only. ) Not Available [facility] [address] [facility], [place], [address], 02/20/2024 04:51:32 02/18/2002/20/2024 BETA 2 GLYCO PROTE [...] infor boby hernandez e refer to http: //[facility] brendan byers.que stdia gnost ics.c om/fa q/FAQ 109 (This link is being provi ded for infor matio nal/ educa nevaeh l purpo ses only. ) Not Available [facility] [address] [place], [address], 02/20/2024 04:51:32 02/18/2002/20/2024 ANTIC ARDIO LIPIN ABS anticardioli pin, IgG 5.2 gpl-U /mL normal Value Inter preta tion ----- ----- ----- ---- < 20.0 Antib lisa not detec saba > or = 20.0 Antib lisa detec saba Not Available [facility] [address] [place], [address], 02/20/2024 04:51:35 02/18/20 24 02/20/2024 ANTIC ARDIO [...] infor boby hernandez e refer to http: //[facility] n.que stdia gnost ics.c om/fa q/FAQ 109 (This link is being provi ded for infor matio nal/ educa nevaeh l purpo ses only. ) Not Available [facility] [address] [place] [address], [address], 02/20/2024 04:51:35 02/18/2002/20/2024 JENNA W/ REFLE X [...] refle xes to titer and nelli rn. Fur er labor atory testi ng may be consi dered if clini mk indic ated. For addit ional infor boby hernandez e refer to http: //[facility] n.Que stDia gnost ics.c om/fa q/FAQ 177 (This link is being provi ded for infor matio nal/ educa nevaeh l purpo ses only. ) Not Available [facility] [address] [place] [address], [address], 02/21/2024 08:39:25 02/18/2002/20/2024 JENNA W/ REFLE X JENNA titer 1:1280 titer high Refer ence Range <1:40 Negat cherrie 1:40- 1:80 Low Antib lisa Level >1:80 Bentley saba Antib lisa Level Not Available [facility] [address] [place], [address], 02/21/2024 08:39:25 02/18/20 02/20/2024 JENNA W/ REFLE X JENNA pattern [...] Patte rns (http s://d oi.or g/10. 1515/ [facility]- 2017- 0052) Not Available [facility] [address] [place] [address], [address], 02/21/2024 08:39:25 02/18/20 24 02/21/2024 JENNA REFLE X COMME NT JENNA reflex comment see below normal REFLE X TESTI NG IN PROGR ESS INCLU MARIANA: Anti- DNA (ds) Ab, SM/RN P Abs, SS-A/ SS-B Abs, and Scler oderm a Ab Testi ng could take up to 7 days to compl ete. Not Available [facility] [address] [place] [address], [address], 02/21/2024 08:39:28 02/18/20 24 02/21/2024 C3 C3 153 mg/dL 82-185 normal Not Available [facility] [address] [place] [address], [address], 02/21/2024 16:04:25 02/18/20 24 02/21/2024 C4 C4 19 mg/dL 15-53 normal Not Available [facility] [address] [place] [address], [address], 02/21/2024 16:04:28 02/18/20 24 02/22/2024 JENNA REFLE X TESTI NG sm antibody <1.0 NEG ai <1.0 neg normal Not Available [facility] [address] [place] [address], [address], 02/22/2024 14:23:55 02/18/20 24 02/22/2024 JENNA REFLE X TESTI NG sm/eight arm operator Ab <1.0 NEG ai <1.0 neg normal Not Available [facility] [address] [place] [address], [address], 02/22/2024 14:23:55 02/18/20 24 02/22/2024 JENNA REFLE X TESTI NG ss-A Ab <1.0 NEG ai <1.0 neg normal Not Available [facility] [address] [place] [address], [address], 02/22/2024 14:23:55 02/18/20 24 02/22/2024 EJNNA REFLE X TESTI NG ss-B Ab <1.0 NEG ai <1.0 neg normal Not Available [facility] [address] [place] [address], [address], 02/22/2024 14:23:55 02/18/20 24 02/22/2024 JENNA REFLE X TESTI NG scleroderma Ab <1.0 NEG ai <1.0 neg normal Not Available [facility] [address] [place] [address], [address], 02/22/2024 14:23:55 02/18/20 24 02/22/2024 LUPUS ANTIC [...] on this test, go to: http: //kim jordanque stdia gnost ics.c om/fa q/FAQ 01v2 (This link is being provi ded for infor [place] [facility]/ educa nevaeh l purpo ses only. ) ----- ----- ----- ----- ----- ----- ----- ----- ----- ----- ----- - This inter preta tion is based on the follo wing test resul ts: Not Available [facility] [address] [place] [address], [address], 02/22/2024 22:55:52 02/18/2002/22/2024 LUPUS ANTIC OAGUL ANT EVALU ATION PTT (lac) screen 71 sec < or = 40 high Not Available [facility] [address] [place] [address], [address], 02/22/2024 22:55:52 02/18/2002/22/2024 LUPUS ANTIC OAGUL ANT EVALU ATION drvvt screen 70 sec < or = 45 high Not Available [facility] [address] [place] [address], [address], 02/22/2024 22:55:52 02/18/20 24 02/22/2024 LUPUS ANTIC OAGUL ANT EVALU ATION hexagonal phase confirmation NEGATI VE negati ve normal Not Available [facility] [address] [place] [address], [address], 02/22/2024 22:55:52 02/18/20 24 02/22/2024 LUPUS ANTIC OAGUL ANT EVALU ATION drvvt confirmation NEGATI VE negati ve normal Not Available [facility] [address] [place] [address], [address], 02/22/2024 22:55:52 02/18/2002/23/2024 ANTI- CCP anti-ccp <16 units normal Refer ence Range Negat cherrie: <20 Weak Posit cherrie: 20-39 Moder ate Posit cherrie: 40-59 Stron g Posit cherrie: >59 Not Available [facility] [address] [place] [address], [address], 02/23/2024 16:08:06 02/18/20 24 02/22/2024 JENNA REFLE X TESTI NG sm antibody <1.0 NEG ai <1.0 neg normal Not Available [facility] [address] [place] [address], [address], 02/27/2024 02:05:27 02/18/20 24 02/22/2024 JENNA REFLE X TESTI NG sm/eight arm operator Ab <1.0 NEG ai <1.0 neg normal Not Available [facility] [address] [place] [address], [address], 02/27/2024 02:05:27 02/18/20 24 02/22/2024 JENNA REFLE X TESTI NG ss-A Ab <1.0 NEG ai <1.0 neg normal Not Available [facility] [address] [place] [address], [address], 02/27/2024 02:05:27 02/18/20 24 02/22/2024 JENNA REFLE X TESTI NG ss-B Ab <1.0 NEG ai <1.0 neg normal Not Available [facility] [address] [place] [address], [address], 02/27/2024 02:05:27 02/18/20 24 02/22/2024 JENNA REFLE X TESTI NG scleroderma Ab <1.0 NEG ai <1.0 neg normal Not Available [facility] [address] [place] [address], [address], 02/27/2024 02:05:27 02/18/20 24 02/27/2024 JENNA REFLE X TESTI NG DNA (ds) Ab NEGATI VE negati ve normal Not Available [facility] [address] [place] [address], [address], 02/27/2024 02:05:27 10/26/19 25 10/25/2024 COMPL ETE BLOOD COUNT white blood cells 6.1 10*3/ uL 3.8-10 .8 normal Not Available [facility] [address] [place] [address], [address], 10/25/2024 13:03:26 10/26/19 25 10/25/2024 COMPL ETE BLOOD COUNT red blood cells 5.14 10*6/ uL 4.20-5 .80 normal Not Available [facility] [address] [place] [address], [address], 10/25/2024 13:03:26 10/26/19 25 10/25/2024 COMPL ETE BLOOD COUNT hemoglobin 15.4 g/dL 14.0-1 8.0 normal Not Available [facility] [address] [place] [address], [address], 10/25/2024 13:03:26 10/26/19 25 10/25/2024 COMPL ETE BLOOD COUNT hematocrit 44.7 % 40.0-5 2.0 normal Not Available [facility] [address] [place] [address], [address], 10/25/2024 13:03:26 10/26/19 25 10/25/2024 COMPL ETE BLOOD COUNT MCV 87 fL 80-100 normal Not Available [facility] [address] [place] [address], [address], 10/25/2024 13:03:26 10/26/19 25 10/25/2024 COMPL ETE BLOOD COUNT MCH 30 pg 26-35 normal Not Available [facility] [address] [place] [address], [address], 10/25/2024 13:03:26 10/26/19 25 10/25/2024 COMPL ETE BLOOD COUNT MCHC 35 g/dL 32-36 normal Not Available [facility] [address] [place] [address], [address], 10/25/2024 13:03:26 10/26/19 25 10/25/2024 COMPL ETE BLOOD COUNT RDW 13.6 % 11.0-1 5.0 normal Not Available [facility] [address] [place] [address], [address], 10/25/2024 13:03:26 10/26/19 25 10/25/2024 COMPL ETE BLOOD COUNT MPV 7.9 fL 6.2-10 .5 normal Not Available [facility] [address] [place] [address], [address], 10/25/2024 13:03:26 10/26/19 25 10/25/2024 COMPL ETE BLOOD COUNT platelet count 221 10*3/ uL 150-40 0 normal Not Available [facility] [address] [place] [address], [address], 10/25/2024 13:03:26 10/26/19 25 10/25/2024 COMPL ETE BLOOD COUNT neutrophil,a bsolute 4.0 10*3/ uL 1.6-8. 4 normal Not Available [facility] [address] [place] [address], [address], 10/25/2024 13:03:26 10/26/19 25 10/25/2024 COMPL ETE BLOOD COUNT lymphocyte,a bsolute 1.3 10*3/ uL 0.4-5. 1 normal Not Available [facility] [address] [place] [address], [address], 10/25/2024 13:03:26 10/26/19 25 10/25/2024 COMPL ETE BLOOD COUNT monocyte,abs olute 0.7 10*3/ uL 0.0-1. 2 normal Not Available [facility] [address] [place] [address], [address], 10/25/2024 13:03:26 10/26/19 25 10/25/2024 COMPL ETE BLOOD COUNT eosinophil,a bsolute 0.1 10*3/ uL 0.0-0. 8 normal Not Available [facility] [address] [place] [address], [address], 10/25/2024 13:03:26 10/26/19 25 10/25/2024 COMPL ETE BLOOD COUNT basophil,abs olute 0.0 10*3/ uL 0.0-0. 3 normal Not Available [facility] [address] [place] [address], [address], 10/25/2024 13:03:26 10/26/19 25 10/25/2024 COMPL ETE BLOOD COUNT % neutrophils 65.5 % 42.0-7 8.0 normal Not Available [facility] [address] [place] [address], [address], 10/25/2024 13:03:26 10/26/19 25 10/25/2024 COMPL ETE BLOOD COUNT % lymphocytes 21.4 % 11.0-4 7.0 normal Not Available [facility] [address] [place] [address], [address], 10/25/2024 13:03:26 10/26/19 25 10/25/2024 COMPL ETE BLOOD COUNT % monocytes 11.5 % 0.0-11 .0 high Not Available [facility] [address] [place] [address], [address], 10/25/2024 13:03:26 10/26/19 25 10/25/2024 COMPL ETE BLOOD COUNT % eosinophils 0.9 % 0.0-7. 0 normal Not Available [facility] [address] [place] [address], [address], 10/25/2024 13:03:26 10/26/19 25 10/25/2024 COMPL ETE BLOOD COUNT % basophils 0.7 % 0.0-3. 0 normal Not Available [facility] [address] [place] [address], [address], 10/25/2024 13:03:26 10/26/19 25 10/25/2024 COMPL ETE BLOOD COUNT nucleated red cells 0.1 % 0.0-0. 9 normal Not Available [facility] [address] [place] [address], [address], 10/25/2024 13:03:26 10/26/19 25 10/25/2024 COMPL ETE BLOOD COUNT nucleated RBCs, absolute 0.01 10*3/ uL not estab. normal Not Available [facility] [address] [place] [address], [address], 10/25/2024 13:03:26 10/26/19 25 10/25/2024 ESR, AUTOM ATED ESR, automated 5 mm 0-14 normal Not Available [facility] [address] [place] [address], [address], 10/25/2024 13:30:12 10/26/19 25 10/25/2024 COMP. METAB OLIC PANEL glucose 97 mg/dL 74-100 normal Not Available [facility] [address] [place] [address], [address], 10/25/2024 14:53:13 10/26/19 25 10/25/2024 COMP. METAB OLIC PANEL blood urea nitrogen 11 mg/dL 6-20 normal Not Available [facility] [address] [place] [address], [address], 10/25/2024 14:53:13 10/26/19 25 10/25/2024 COMP. METAB OLIC PANEL creatinine 0.92 mg/dL 0.70-1 .20 normal Not Available [facility] [address] [place] [address], [address], 10/25/2024 14:53:13 10/26/19 25 10/25/2024 COMP. METAB OLIC PANEL BUN/creatini ne ratio 12 (calc ) 10-20 normal Not Available [facility] [address] [place] [address], [address], 10/25/2024 14:53:13 10/26/19 25 10/25/2024 COMP. METAB OLIC PANEL sodium 139 mmol/ L 136-14 5 normal Not Available [facility] [address] [place] [address], [address], 10/25/2024 14:53:13 10/26/19 25 10/25/2024 COMP. METAB OLIC PANEL potassium 3.7 mmol/ L 3.4-5. 0 normal Not Available [facility] [address] [place] [address], [address], 10/25/2024 14:53:13 10/26/19 25 10/25/2024 COMP. METAB OLIC PANEL chloride 103 mmol/ L 98-107 normal Not Available [facility] [address] [place] [address], [address], 10/25/2024 14:53:13 10/26/19 25 10/25/2024 COMP. METAB OLIC PANEL carbon dioxide 23 mmol/ L 22-31 normal Not Available [facility] [address] [place] [address], [address], 10/25/2024 14:53:13 10/26/19 25 10/25/2024 COMP. METAB OLIC PANEL anion gap 13 (calc ) 7-25 normal Not Available [facility] [address] [place] [address], [address], 10/25/2024 14:53:13 10/26/19 25 10/25/2024 COMP. METAB OLIC PANEL calcium 9.2 mg/dL 8.6-10 .2 normal Not Available [facility] [address] [place] [address], [address], 10/25/2024 14:53:13 10/26/19 25 10/25/2024 COMP. METAB OLIC PANEL total protein 6.4 g/dL 6.4-8. 3 normal Not Available [facility] [address] [place] [address], [address], 10/25/2024 14:53:13 10/26/19 25 10/25/2024 COMP. METAB OLIC PANEL albumin 4.3 g/dL 3.5-5. 2 normal Not Available [facility] [address] [place] [address], [address], 10/25/2024 14:53:13 10/26/19 25 10/25/2024 COMP. METAB OLIC PANEL globulin 2.1 1.5-4. 5 normal Not Available [facility] [address] [place] [address], [address], 10/25/2024 14:53:13 10/26/19 25 10/25/2024 COMP. METAB OLIC PANEL albumin/glob ulin ratio 2.0 (calc ) 1.1-2. 5 normal Not Available [facility] [address] [place] [address], [address], 10/25/2024 14:53:13 10/26/19 25 10/25/2024 COMP. METAB OLIC PANEL bilirubin, total 0.7 mg/dL 0.1-1. 2 normal Not Available [facility] [address] [place] [address], [address], 10/25/2024 14:53:13 10/26/19 25 10/25/2024 COMP. METAB OLIC PANEL alkaline phosphatase 63 U/L 40-129 normal Not Available [facility] [address] [place] [address], [address], 10/25/2024 14:53:13 10/26/19 25 10/25/2024 COMP. METAB OLIC PANEL AST 17 U/L 0-40 normal Not Available [facility] [address] [place] [address], [address], 10/25/2024 14:53:13 10/26/19 25 10/25/2024 COMP. METAB OLIC PANEL ALT 18 U/L 0-41 normal Not Available [facility] [address] [place] [address], [address], 10/25/2024 14:53:13 10/26/19 25 10/25/2024 COMP. METAB OLIC PANEL eGFR 112 >= 60 normal NOT E New calcu latio n for GFR (CKD- EPI 2020) is formu lated witho ut race adjus tment facto rs at the recom menda tion of the [employer] at[employer] and [employer]r [facility]y . This calcu latio n has not been valid ated in pregn ant women . For pedia tric patie nts refer to https ://juve w.ondina rae.o rg/pr ofess ional s/KDO QI/gf r_cal culat orPed Not Available [facility] [address] [place] [address], [address], 10/25/2024 14:53:13 10/26/19 25 10/26/2024 C4 C4 18 mg/dL 15-53 normal Not Available [facility] [address] [place] [address], [address], 10/26/2024 18:32:18 10/26/19 25 10/26/2024 C3 C3 148 mg/dL 82-185 normal Not Available [facility] [address] [place], [address], 10/26/2024 18:32:19 10/26/19 25 10/28/2024 ANTI DNA (DS) AB, REFLE X TITER DNA (ds) Ab NEGATI VE negati ve normal Not Available [facility] [address] [place], [address], 10/28/2024 20:50:19 02/18/20 24 02/18/2024 XR, lumbo sacra l spine , 2 or 3 view [facility] [address] [facility] [place] [address] Amee t Name: ZAHEER rosa : [phone] Amee rosa Orderi ng Provid er: DEBORAH MAC HARVEY [...] Alberto Lal MD on 2023 1:46 PM [facility] [address], [address], 02/23/2024 19:19:00 02/18/2002/18/2024 XR, knee, 1 or [address] [address] Patien t Name: ZAHEER HERBERT Patien t : [phone] Patien t Adrian licea Provid er: DEBORAH MAC HARVEY EXAM DATE: [...] Cristy olivarez MD on 2023 2:01 PM [facility] [place] [address] [place], [address], 02/23/2024 19:19:00 02/18/2002/18/2024 XR, ankle , 2 view [facility] [address] [place] [address] Patien t Name: ZAHEER HERBERT Patien t : [phone] Patien t Orderi ng Provid er: DEBORAH GABRIEL EXAM DATE: 2023 EXAM: XR SHEKHAR ANKLES [...] Cristy olivarez MD on 2023 2:02 PM [facility] [address], [address], 02/23/2024 19:19:01 Result Notes Documentation Provider Name and Address Organization Details Recorded Time Xr, Lumbosacral Spine, 2 Or 3 View : [address] [address] Patient Name: JANET PURCELL Patient : 1990 Patient Ordering Provider: DEBORAH HAMMOND EXAM DATE: 02/18/2024 EXAM: XR LUMBAR AP/LAT CLINICAL INFORMATION: Back pain. IMAGES PROVIDED: AP, lateral and coned down views of the lumbar spine. COMPARISON: None. FINDINGS: Curvature, alignment, vertebral body heights and disc spaces are normal. No radiographic evidence of injury is noted. Aortoiliac stent graft noted. IMPRESSION: Normal radiographs of the lumbar spine. Interpreted By: Alberto Lal MD RAH HAMMOND MD [address] [place] [address], [phone], [facility] 02/23/2024 17:33:02 Xr, Knee, 1 Or 2 View : [address] [address] Patient Name: JANET PURCELL Patient : 1990 Patient Ordering Provider: DEBORAH HAMMOND EXAM DATE: 02/18/2024 EXAM: XR SHEKHAR KNEES 1 OR 2 VIEWS HISTORY: Bilateral knee pain and multiple falls. COMPARISON: None. FINDINGS: The bones of the left and right knee are normal in alignment. There is no evidence of fracture. There are minimal degenerative changes. IMPRESSION: 1. There are minimal degenerative changes in the left and right knee. Interpreted By: Albino Linder MD RAH HAMMOND MD [address] [place] [address], [phone], [facility] 02/23/2024 17:33:02 Xr, Ankle, 2 View : [facility] [address] [place] [address] Patient Name: JANET PURCELL Patient : 1990 Patient Ordering Provider: DEBORAH HAMMOND EXAM DATE: 02/18/2024 EXAM: XR SHEKHAR ANKLES, AP/LAT COMPARISON: None. HISTORY: Bilateral ankle pain and prior fall. FINDINGS: The bones of the left and right ankle are normal in alignment. There is no displaced fracture. There is minimal degenerative change. There is soft tissue swelling of the ankles. There are prominent vascular calcifications. IMPRESSION: 1. There is soft tissue swelling of the left and right ankle, but there is no evidence of fracture. Interpreted By: Albino Linder MD RAH HAMMOND MD [address] [place] [address], [phone], [facility] 02/23/2024 17:33:03 Procedures Surgical History Date Name Laterality Status Provider Name and Address Organization Details Recorded Time biopsy of lung completed [facility] 02/18/2024 10:12:19 insertion of stent into vein completed [facility] 02/18/2024 10:12:32 release of trigger finger completed [facility] 02/18/2024 10:12:52 phlebectomy of lower limb vein completed [facility] 02/18/2024 10:13:18 Imaging Results None recorded. Procedure [...] Available Not Available prednisone 5 mg tablet take 4 tabs x 3 days, 3 tabs x 3 days, 2 tabs x 3 days, 1 tab x 3 days then off. 2024 active Not Available Not Available Not Avai lable leflunomide 10 mg tablet TAKE ONE TABLET [...] in Arterial blood by Pulse oximetry Systolic And Diastolic Provider Name and Address Organization Details Last Updated DateTime 5 175.26 cm 36.9 kg/m2 271883. 09 g 14 /min 84 /min 98 % 98 % 126/88 mm[Hg] [facility] 5 13:38:20 Date Recorded Body height Body mass index (BMI) Body weight Heart rate Oxygen saturation Oxygen saturation in Arterial blood by Pulse oximetry Systolic And Diastolic Provider Name and Address Organization Details Last Updated DateTime 5 175.26 cm 38 kg/m2 814643. 24 g 90 /min 97 % 97 % 124/80 mm[Hg] Tiffanie Roberto [facility] 5 12:05:52 Date Recorded Body height Body mass index (BMI) Body weight Respiratory rate Heart rate Oxygen saturation Oxygen saturation in Arterial blood by Pulse oximetry Systolic And Diastolic Provider Name and Address Organization Details Last Updated DateTime 5 175.26 cm 37.2 kg/m2 684262. 28 g 14 /min 82 /min 99 % 99 % 118/70 mm[Hg] [facility] 5 11:54:31 Date Recorded Body weight Body mass index (BMI) Body height Respiratory rate Heart rate Oxygen saturation Oxygen saturation in Arterial blood by Pulse oximetry Systolic And Diastolic Provider Name and Address Organization Details Last Updated DateTime 4 023309. 38 g 37.3 kg/m2 175.26 cm 14 /min 78 /min 98 % 98 % 120/88 mm[Hg] [facility] 4 10:15:08 Social History Question Answer Notes LastModified by Duriana Details LastModified Time Tobacco Smoking Status Current Every Day Smoker [facility] 02/18/2024 10:11:49 What Was The Date Of Your Most Recent Tobacco Screening? 10/25/2024 Information not available 10/25/2024 Sex: Unknown Functional Status Question Answer Note LastModified by Duriana Details LastModified Time Do you or have [...] Immunizations Vaccine Type Date Status Note Provider Harjit lin and Address Organization Details Recorded Time MMR 6 completed Theodora Gracia [facility] 11/25/2023 12:26:10 Tdap 8 completed Theodora Gracia [facility] 11/25/2023 12:26:10 Td (adult) 2 completed Theodoraabigail Gracia [facility] 11/25/2023 12:26:10 Td (adult), 2 Lf tetanus toxoid, preservative free, adsorbed 3 completed Theodoraabigail Gracia [facility] 11/25/2023 12:26:10 Hep B, adolescent or pediatric 3 completed Theodoraabigail Gracia [facility] 11/25/2023 12:26:10 Hep B, adolescent or pediatric 3 completed Theodoraabigail Gracia [facility] 11/25/2023 12:26:10 Past Encounters Encounter ID Performer Location Encounter Start Date Encounter Closed Date Diagnosis/Indication Diagnosis SNOMED-CT Code Diagnosis ICD10 Code Diagnosis IMO Codes Diagnosis Note [id number] DEBORAH HAMMOND MD RHE[facility]ATOL [facility] [address] [place] [address] 02/18/2024 09:53:00 02/20/2024 04:20:11 Antiphospholipid syndrome 29039264 D68.61 Several DVTs and PEs with resulting chronic venous insufficie ncy. Unclear if this is primary or secondary. Other rheumatolo gists have thought this is secondary as leflunomid e is not a treatment for APLS. - will get additional labs as below- he is on chronic warfarin therapy through PCP- he has seen a hematologi st at [facility], who has retired- request records from , Dr. Myers, and Dr. Young/[facility] Pain of mu ltiple joints 36442433 M25.50 Due to PAD vs. PVD?? - he is on hydrocodon e and gabapentin 300 mg TID- XR of the lumbar spine- XR of the knees and ankles Long-term drug therapy 358840060 Z79.899 - labs every 3 months on [...] months to monitor for retinal toxicity Fatigue 57688394 R53.83 Systemic l upus erythematosus 35492333 M32.9 Possible diagnosis? I did not appreciate synovitis, but his ankle swelling is difficult to discern due to his chronic venous insufficie ncy Recurrent falls 20844248 2 R29.6 - unclear etiology- related to PAD vs.PVD?- request records- X rays and labs as above [id number] DEBORAH HAMMOND MD RHEUMATOL [facility] [address] [place] [address] 04/19/2024 13:10:12 06/05/2024 04:36:27 Antiphospholipid syndrome 58408347 D68.61 Several DVTs and PEs with resulting [...] he has seen a hematologi st at [facility], who has retired- request records from , Dr. Myers, and Dr. Young/[facility] Systemic l upus erythematosus 19584454 M32.9 + JENNA 1:1280 in a centromere [...] is necessary Pain of mu ltiple joints 87227603 M25.50 Due to PAD vs. PVD?? - he is on hydrocodon e and gabapentin 300 mg TID- XRs without significan t osteoarthr itis Long-term drug therapy 627337653 Z79.899 - labs every 3 months on [...] months to monitor for retinal toxicity Fatigue 03514876 R53.83 Recurrent falls 12939475 2 R29.6 - unclear etiology- related to PAD vs.PVD?- request records- X rays and labs as above [id number] DEBORAH HAMMOND MD [facility]OL [facility] [address] [place] [address] 07/25/2024 11:46:45 07/31/2024 09:44:08 Antiphospholipid syndrome 52361965 D68.61 Several DVTs and PEs with resulting [...] he has seen a hematologi st at [facility], who has retired- request records from , Dr. Myers, and Dr. Young/[place] Systemic l upus erythematosus 54109455 M32.9 + JENNA 1:1280 in a centromere [...] is necessary Pain of mu ltiple joints 79292106 M25.50 Due to PAD vs. PVD?? - he is on hydrocodon e and gabapentin 300 mg TID- XRs without significan t osteoarthr itis Long-term drug therapy 580550606 Z79.899 - labs every 3 months on [...] months to monitor for retinal toxicity Fatigue 30032752 R53.83 Recurrent falls 64949449 2 R29.6 - unclear etiology- related to PAD vs.PVD? Peripheral venous insufficiency 75994322 I87.2 4388 I think a lot of his ongoing issues is related to his venous insufficie ncy. I think he needs to remain in contact with Dr. Myers, so will refer back [id number] DEBORAH HAMMOND MD [facility] [address] [place] [address] 10/25/2024 10:52:16 10/27/2024 04:14:14 Antiphospholipid syndrome 53560761 D68.61 Several DVTs and PEs with resulting [...] lipin, - beta 2 glycoprote in - he is on chronic warfarin therapy through PCP- he has seen a hematologi st at [facility], who has retired- request records from , Dr. Myers- continue hydroxychl oroquine 200 mg BID Systemic l upus erythematosus 17635448 M32.9 + JENNA 1:1280 in a centromere [...] is necessary Pain of mu ltiple joints 64509191 M25.50 Due to PAD vs. PVD?? - he is on hydrocodon e and gabapentin 300 mg TID- XRs without significan t osteoarthr itis Long-term drug therapy 683622245 Z79.899 - labs every 3 months on [...] months to monitor for retinal toxicity Fatigue 50960897 R53.83 Recurrent falls 21534963 2 R29.6 - unclear etiology- related to PAD vs.PVD? Peripheral venous insufficiency 90965237 I87.2 4388 I think a lot of his ongoing issues is related to his venous insufficie ncy. I think he needs to remain in contact with Dr. Myers Health Concerns Section Related Observation LastModified by Organization Crispin ls LastModified Time None Recorded Concern Status LastModified by Organization Details LastModified Time None Recorded Advance Directives Directive None Recorded Payers Insurance Date Sequence Insurance Name Policy Number Policy Gaspar Covered Member ID Gaspar Member ID Guarantor Name 10/27/2024 2 [facility] [facility] (MEDICAID HMO) Janet Purcell [id number] Janet Purcell 10/27/2024 1 [id number] Maria Victoria Purcell [id number] Janet Purcell Notes Date Note Type Note Provider Name and Address Organization Details Recorded Time 02/18/2024 text/html ROS as noted in the HPI Janet Purcell is a 33 yo man with past medical history of APLS, connective tissue disease, HTN, HLD, PAD, chronic pain, tinea pedis, who presents to establish care. His is present with him at the appointment and provides a lot of the history. 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 He was hospitalized for 3 weeks and was on a green filter and was treated with high doses of steroids. They state he was diagnosed with systemic scleroderma and APLS. Started seeing Dr. Tracy who was part of the [facility]. She then left, so he established with Dr. Young at [facility].Dr. Young did not think he had scleroderma and did a bunch of blood work. He was put on leflunomide. He has been on plaquenil since 2013. 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 They state he was terminated when he was in the hospital and that company is now no more. He has not been working for 3 years. Prior to that, he did work for [employer], but he has issues with recurrent falls, so he has been let go from there as well. He is out on custodial disability. They are trying to apply for state disability.He falls constantly. Legs just give out.Pain all the time. Lose balance.He does walk with a cane on really bad days.Terrible circulation problems since the DVTs and blood clots.Dr. Camara at [facility]. Does not think he is a candidate for surgery. Has been following with Dr. Myers in vascular. Put in 3 stents in the right groin. Thinks it has made it worse.had a leg ulcer which is scarred on the left leg. Failed Xarelto and Eliquis.He is on plaquenil and leflunomide Pes planus and as bad osteoarthritis in the feet. Following with a care manager cna. He gets steroid injections in the ankles every 3 months.Fingers get stiff. Hips will hurt.Fatigue. Feet and legs will get swollen. + raynaud's, rash on feet and ankles and sees dermatology for tinea, no rash in the sun. Has three kids. DEBORAH HAMMOND MD [address] [place] [address], [phone], [facility] - [facility] 02/19/2024 13:06:09 04/19/2024 text/html ROS as noted in the HPI Janet Purcell is a 33 yo man with past medical history of APLS, connective tissue disease, HTN, HLD, PAD, chronic pain, tinea pedis, who presents to establish care. 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 He was hospitalized for 3 weeks and was on a green filter and was treated with high doses of steroids. They state he was diagnosed with systemic scleroderma and APLS. Started seeing Dr. Tracy who was part of the [facility]. She then left, so he established with Dr. Young at [facility].Dr. Young did not think he had scleroderma and did a bunch of blood work. He was put on leflunomide. He has been on plaquenil since 2012. 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 They state he was terminated when he was in the hospital and that company is now no more. He has not been working for 3 years. Prior to that, he did work for [employer], but he has issues with recurrent falls, so he has been let go from there as well. He is out on custodial disability. They are trying to apply for state disability.He falls constantly. Legs just give out.Pain all the time. Lose balance.He does walk with a cane on really bad days.Terrible circulation problems since the DVTs and blood clots.Dr. Camara at [facility]. Does not think he is a candidate for surgery. Has been following with Dr. Myers in vascular. Put in 3 stents in the right groin. Thinks it has made it worse.had a leg ulcer which is scarred on the left leg. Failed Xarelto and Eliquis.He is on plaquenil and leflunomide Pes planus and as bad osteoarthritis in the feet. Following with a care manager cna. He gets steroid injections in the ankles [...] sick in the interim. DEBORAH HAMMOND MD [address] [place] [address], [phone], [facility] 06/04/2024 16:50:22 07/25/2024 text/html ROS as noted in the HPI Janet Purcell is a 33 yo man with past medical history of APLS, connective tissue disease, HTN, HLD, PAD, chronic pain, tinea pedis, who presents to establish care. 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 He was hospitalized for 3 weeks and was on a green filter and was treated with high doses of steroids. They state he was diagnosed with systemic scleroderma and APLS. Started seeing Dr. Tracy who was part of the [facility]. She then left, so he established with Dr. Young at [facility].Dr. Young did not think he had [...] Prior to that, he did work for [employer], but he has issues with recurrent falls, so he has been let go from there as well. He is out on custodial disability. They are trying to apply for state disability.He falls constantly. Legs just give out.Pain all the time. Lose balance.He does walk with a cane on really bad days.Terrible circulation problems since the DVTs and blood clots.Dr. Camara at [facility]. Does not think he is a candidate for surgery. Has been following with Dr. Myers in vascular. Put in 3 stents in the right groin. Thinks it has made it worse.had a leg ulcer which is scarred on the left leg. Failed Xarelto and Eliquis.He is on plaquenil and leflunomide Pes planus and as bad osteoarthritis in the feet. Following with a care manager cna. He gets steroid injections in the ankles [...] in the interim. DEBORAH HAMMOND MD [address] [place] [address], [place], [phone], [facility] 07/27/2024 11:08:34 10/25/2024 text/html ROS as noted in the HPI Janet Purcell is a 34 yo man with past medical history of APLS, connective tissue disease, HTN, HLD, PAD, chronic pain, tinea pedis, who presents for follow up. 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 He was hospitalized for 3 weeks and was on a green filter and was treated with high doses of steroids. They state he was diagnosed with systemic scleroderma and APLS. Started seeing Dr. Tracy who was part of the [facility]. She then left, so he established with Dr. Young at [facility].Dr. Young did not think he had [...] Prior to that, he did work for [employer], but he has issues with recurrent falls, so he has been let go from there as well. He is out on custodial disability. They are trying to apply for state disability.He falls constantly. Legs just give out.Pain all the time. Lose balance.He does walk with a cane on really bad days.Terrible circulation problems since the DVTs and blood clots.Dr. Camara at [facility]. Does not think he is a candidate for surgery. Has been following with Dr. Myers in vascular. Put in 3 stents in the right groin. Thinks it has made it worse.had a leg ulcer which is scarred on the left leg. Failed Xarelto and Eliquis.He is on plaquenil and leflunomide Pes planus and as bad osteoarthritis in the feet. Following with a care manager cna. He gets steroid injections in the ankles [...] not been hospitalized or sick in the interim.He did go back and see Dr. Myers and they are going to see him once per year for an ultrasound. DEBORAH HAMMOND MD [address] [place], [phone], [place] [facility] 10/26/2024 11:12:12
[2024-12-28] MEDS: LIDOCAINE 1% 20ML MDV 20 ML SUBCUT (13:23)
[2024-12-28] MEDS: TET/DIPHTH/PERT-ADULT 0.5ML SYRINGE 0.5 ML IM (13:23)
[2024-12-28 13:31] VITALS: BP 130/82; PULSE 80; O2SAT 99
[2024-12-28 14:01] VITALS: BP 100/67; PULSE 72; O2SAT 98
--- NOTE | 2024-12-28 14:14 | ED_ITS ---
<Statement entered by Glenn Carroll DO - 12/29/24 07:10> I was consulted by the GILMAR, and we discussed the complexity of problems being addressed. I approved the treatment and management plan for this patient's care in the emergency department, thus performing a substantive portion of the medical decision making. Glenn Carroll DO Discharge Plan Disposition Patient Disposition: Home, Self-Care Prescriptions Prescriptions: No Action warfarin 3 mg tablet 3 mg PO DAILY losartan 25 mg tablet PO Patient Comments: TAKE ONE TABLET BY MOUTH EVERY DAY warfarin 6 mg tablet PO Patient Comments: TAKE ONE TABLET BY MOUTH EVERY DAY hydrocodone-acetaminophen 10-325 mg tablet 1 tab PO BID Patient Comments: TAKE ONE TABLET BY MOUTH TWICE DAILY NEEDED FOR PAIN MAY CAUSE DROWSINESS methocarbamol 750 mg tablet 750 mg PO DAILY PRN (Reason: Pain) Patient Comments: TAKE ONE TABLET BY MOUTH EVERY DAY MAY CAUSE DROWSINESS warfarin 1 mg tablet 1 mg PO DAILY Patient Comments: TAKE ONE TABLET BY MOUTH EVERY DAY DIRECTED clopidogrel 75 mg tablet 75 mg PO DAILY Patient Comments: TAKE ONE TABLET BY MOUTH EVERY DAY atorvastatin 10 mg tablet 10 mg PO DAILY Patient Comments: TAKE ONE TABLET BY MOUTH EVERY DAY clotrimazole-betamethasone 1-0.05 % cream 1 applic topical BID 30 Days Qty: 45 3RF Horizant 600 mg tablet extended release 600 mg PO DAILY Qty: 30 2RF Rx Instructions: administer daily at approximately 5 PM with food/evening meal pentoxifylline 400 mg tablet extended release 400 mg PO TID Qty: 90 2RF Rx Instructions: must administer with a meal/food ciclopirox 8 % solution 1 applic topical DAILY 28 Days Qty: 6.6 2RF warfarin 5 MG tablet 5 mg PO DAILY Patient Comments: TAKE 3 TABLETS BY MOUTH EVERY DAY DIRECTED hydroxychloroquine 200 MG tablet 200 mg PO DAILY gabapentin 300 mg capsule 300 mg PO TID Patient Comments: TAKE ONE CAPSULE BY MOUTH THREE TIMES DAILY MAY CAUSE DROWSINESS ergocalciferol (vitamin D2) 1,250 mcg (50,000 unit) capsule 50,000 unit PO WEEKLY Patient Comments: TAKE ONE CAPSULE BY MOUTH EVERY WEEK guaifenesin [Mucus Relief ER] 600 mg tablet extended release 12hr 600 mg PO NEEDED PRN (Reason: Allergy Symptoms) Patient Comments: TAKE ONE TABLET BY MOUTH EVERY TWELVE HOURS NEEDED leflunomide 10 mg tablet 20 mg PO DAILY Patient Comments: TAKE ONE TABLET BY MOUTH EVERY DAY DIRECTED Referrals Follow up/Referrals: Amrit Cordon APRN [Primary Care Provider, Medical] - See instructions Activity Restrictions/Add. Instructions Additional Instructions/Restrictions: Keep dressing clean dry and intact. Remove it Wednesday and reapply. Then keep it as clean as possible. Have sutures removed when you return from the beach. If any problems or concerns arise please return to the ED or see your PCP. Clinical Impressions Clinical Impression: Laceration, Avulsion of skin Instructions Patient Instructions: DI for Laceration Repair Print Language Print Language: Belarusian Discharge ED Provider: Glenn Carroll Adult HPI General Chief complaint: Wound/Laceration Stated complaint: AO 1230 busted hand Time Seen by Provider: 12/28/24 13:09 Mode of Arrival: Ambulatory Source of Information: Patient and Spouse Description of Symptoms (Recalled from ER Triage Doc. by RN): patient was working on a rebar and patient smashed his finger. patient takes 3 blood thinners, plavix, warfarin and they were unable to mention the third one. Related Data Home Medications ?Medication ?Instructions ?Recorded ?Confirmed hydroxychloroquine 200 mg tablet 200 mg PO DAILY Suppl ement 10/17/18 10/16/24 warfarin 5 mg tablet 5 mg PO DAILY Blood thinner 10/17/18 10/16/24 ergocalciferol (vitamin D2) 1,250 50,000 unit PO WEEKL Y Supplement 12/31/2109/27 mcg (50,000 unit) capsule gabapentin 300 mg capsule 300 mg PO TID Pain 12/31/21 10/16/24 guaifenesin 600 mg tablet, 600 mg PO NEEDED PRN All ergy 12/31/21 10/16/24 extended release 12 hr (Mucus Symptoms Relief ER) warfarin 3 mg tablet 3 mg PO DAILY 03/10/2210/16 atorvastatin 10 mg tablet 10 mg PO DAILY 08/19/2209/27 clopidogrel 75 mg tablet 75 mg PO DAILY 08/19/2209/27 hydrocodone 10 mg-acetaminophen 1 tab PO BID Pain 07/2810/16/24 325 mg tablet methocarbamol 750 mg tablet 750 mg PO DAILY PRN Pain 0 08/19/22 10/16/24 warfarin 1 mg tablet 1 mg PO DAILY 08/19/2210/16 leflunomide 10 mg tablet 20 mg PO DAILY . 09/21/22 losartan 25 mg tablet mg PO 07/06/24 10/16/24 warfarin 6 mg tablet mg PO 07/06/24 10/16/24 Previous Rx's ?Medication ?Instructions ?Recorded gabapentin enacarbil 600 mg 600 mg PO DAILY RLS #30 ta bs 12/07/22 tablet,extended release (Horizant ER) pentoxifylline 400 mg 400 mg PO TID #90 tabs 12/07 tablet,extended release ciclopirox 8 % topical solution 1 applic topical DAILY 4 weeks 03/08/23 #6.6 mL clotrimazole-betamethasone 1 1 applic topical BID lesi on 04/19/23 %-0.05 % topical cream days #45 grams Allergies Allergy/AdvReac Type Severity Reaction Status Date / Time No Known Allergies Allergy Verified 10/16/24 09:50 [facility] Disclaimer: The information contained in this section may have been updated after the patient was seen, as this information can be updated by other users. Medical History Left foot pain Family History Grandmother Asthma Father Hypertension Diabetes Social History Smoking Status: Never smoker alcohol intake: never substance use type: denies use current occupational status: unemployed Travel in the last 8 weeks?: None household members: spouse housing: house marital status: Have you lived/traveled outside [place] in past 30 days?: No Contact w/someone who lives/traveled outside [place] past 30 days?: No Exposure to someone with infectious disease in past 14 days?: No Do you have a fever (greater than 100.4 F or 38 C)?: No Have you tested positive for COVID-19?: No Exposed to someone with COVID-19 in past 14 days?: No Do you have a sore throat?: No Do you have a cough?: No Do you have any weakness?: No Do you have any diarrhea?: No Are you experiencing any unusual bleeding?: No Do you have any muscle aches/pain?: No Do you have any abdominal pain?: No Are you experiencing loss of taste or smell?: No Other Medical History Have you received the Flu Vaccine for this season: No Have you received the Pneumonia Vaccine: No ROS Obtained: Yes Systems reviewed as appropriate & no additional complaints except as documented Physical Exam General General appearance: alert Head Head exam: normocephalic Eye Eye exam: Present PERRL and EOMI ENT ENT exam: Present normal oropharynx and mucous membranes moist Respiratory Respiratory exam: Present normal lung sounds bilaterally Cardiovascular Cardiovascular exam: Present regular rate and normal rhythm Extremities Exam Extremities exam: Present full ROM and other (Laceration to right index finger) Neurological Exam Neurological exam: Present alert and oriented X3 Skin Skin exam: Present warm, dry and other (Laceration to right index finger) Medical Decision Making Medical Records Screening: Per USPSTF and CDC recommendations, given the prevalence of disease in our region, it is our hospital?s policy to screen for HIV and viral Hepatitis for all patients aged 18 and over and those with ongoing risk factors. Mayank Inquiry Pt receiving controlled substance: No Mayank was queried for this patient: No Vital Signs: 12/28/24 13:04 12/28/24 13:31 12/28/24 14:01 Temperature 98.0 F Temperature Source Oral Pulse Rate 80 72 Pulse Rate [Right Radial] 73 Respiratory Rate 18 Blood Pressure 130/82 100/67 L Blood Pressure [Right Arm] 136/99 H Blood Pressure Mean [Right Arm] 111 Blood Pressure Source Blood Pressure Source [Right Arm] Automatic Cuff Blood Pressure Position Blood Pressure Position [Right Arm] Sitting 02 Sat by Pulse Oximetry 100 99 98 Oxygen Delivery Method Room Air Room Air 12/28/24 14:21 Temperature 98 F Temperature Source Oral Pulse Rate 87 Pulse Rate [Right Radial] Respiratory Rate 18 Blood Pressure 100/67 L Blood Pressure [Right Arm] Blood Pressure Mean [Right Arm] Blood Pressure Source Automatic Cuff Blood Pressure Source [Right Arm] Blood Pressure Position Supine Blood Pressure Position [Right Arm] 02 Sat by Pulse Oximetry Oxygen Delivery Method Room Air Orders (Tests/Meds): ED MEDICATIONS Discontinued Medications Generic Name Dose Route Start Last Admin Trade Name Freq PRN Reason Stop Dose Admin Lidocaine HCl 20 ml 12/28/24 13:15 12/28/24 13:23 Lidocaine 1% 20ml Mdv SUBCUT 12/28/24 13:16 20 ml ONCE ONE Administration Tetanus/Reduced Diphtheria/Acell Pertussis 0.5 ml 12/28/24 13:12 12/28/24 13:23 Tet/Diphth/Pert-Adult 0.5ml Syringe IM 12/28/24 13:13 0.5 ml .ONCE ONE Administration ORDERS Category Date Time Status Finger XR right minimum 2 views [XR finger RT min 2V] Exams 12/28/24 13:12 Completed Stat Medical Decision Narrative: patient is a 34-year-old male presenting to the emergency department for evaluation of smashed right index finger with a laceration. Patient is hemodynamically stable and nontoxic-appearing upon arrival, afebrile. Differential diagnosis includes open fracture versus closed fracture versus laceration with avulsion skin. Workup consisted of x-ray with Adacel and laceration repair. Laceration repaired with simple sutures. I discussed that patient may lose his nail although I did do sutures through the nail to keep this part of the finger attached. Sutures need to be removed once patient and his get back from the beach. I did give return precautions. Patient is safe for discharge home. He must see his PCP when he returns. Procedures Laceration Laceration 1: Site: finger Side (If applicable): right Size (cm): 3 Description: irregular Depth: simple, single layer Local Anesthetic: lidocaine 1% Amount of anesthesia used (mL): 6 Pre-repair: wound explored and irrigated extensively Skin layer closed with: other Size (cm): 4-0 Number of sutures: 6 Technique: simple, interrupted Critical Care Critical Care Time Critical Care Time: No
[2024-12-28 14:21] VITALS: BP 100/67; PULSE 87; RESP 18; TEMP 36.6; O2SAT 99
== END 2024-12-28 14:26 | disposition home or self-care (01) ==
PROVIDERS: Emergency Provider Student in an Organized Health Care Education/Training Program; PCP Nurse Practitioner Family
DX: S61.210A Laceration without foreign body of right index finger without damage to nail, initial encounter (principal); W23.0XXA Caught, crushed, jammed, or pinched between moving objects, initial encounter
CPT/HCPCS: 12002; 73140; 90471; 90715; 99283; 99284; J2003